=== PATIENT | female | born 1950 | race Caucasian/White ===

== ENCOUNTER → 2017-06-04 14:13 | Outpatient (POV) | payer OTHER, MEDICARE, SELFPAY | PROVIDERS: Family Provider Family Medicine; PCP Family Medicine; Visit Provider Specialist | DX: G56.03 Carpal tunnel syndrome, bilateral upper limbs (principal) | CPT/HCPCS: 95886; 95909 ==

== ENCOUNTER → 2018-08-28 12:27 | Outpatient (CLI) | payer OTHER, MEDICARE, SELFPAY ==
--- NOTE | 2018-08-28 12:36 | XR_ITS ---
XR hand RT min 3V HISTORY: ITS.REASON: bilateral hand pain ORDERING PHYSICIAN: Amalia Jensen MD PATIENT AGE: 68 years COMPARISON: None FINDINGS: No obvious fracture or dislocation. The joint spaces are well-preserved. A faint periarticular lucency is present along the distal aspect of the middle phalanx of the ring finger both radial and ulnar aspect. This is a question clinical significance. Small periarticular erosions or cyst is a consideration. Otherwise negative. IMPRESSION: 1. Possible small periarticular erosion at the DIP joint of the fourth finger versus a small subchondral cyst. Please correlate with clinical findings regarding patient's area of pain and tenderness 2. Otherwise negative
--- NOTE | 2018-08-28 12:36 | XR_ITS ---
XR hand LT min 3V HISTORY: ITS.REASON: bilateral hand pain ORDERING PHYSICIAN: Amalia Jensen MD PATIENT AGE: 68 years COMPARISON: None FINDINGS: There are mild osteoarthritic changes of the first metacarpal carpal joint. A small cyst involves the capitate and 4 mm. A sclerotic focus involves the proximal to mid shaft of the proximal phalanx of the third finger well-circumscribed and could be due to bone island. Otherwise negative. IMPRESSION: 1. 14 mm intramedullary sclerotic lesion of the proximal phalanx of the third digit possibly due to bone island. 2. Mild osteoarthritic changes of the wrist
== END ==
PROVIDERS: PCP Family Medicine; Visit Provider Orthopaedic Surgery
DX: M79.642 Pain in left hand (principal); M79.641 Pain in right hand
CPT/HCPCS: 73130

== ENCOUNTER 2018-08-28 15:23 | Outpatient (RCR) | payer OTHER, MEDICARE, SELFPAY | END 2018-08-28 15:30 | disposition home or self-care (01) | LOC: OT 15:23 | PROVIDERS: Visit Provider Orthopaedic Surgery | DX: M79.642 Pain in left hand (principal) | CPT/HCPCS: 97763 ==

== ENCOUNTER → 2019-04-08 10:07 | Outpatient (POV) | payer OTHER, MEDICARE, SELFPAY | PROVIDERS: Visit Provider Dermatology | DX: Z00.00 Encounter for general adult medical examination without abnormal findings (principal) ==

== ENCOUNTER → 2019-11-07 07:30 | Outpatient (CLI) | payer MEDICARE, BC, SELFPAY | PROVIDERS: Visit Provider Ophthalmology | DX: Z01.818 Encounter for other preprocedural examination (principal); Z11.59 Encounter for screening for other viral diseases | CPT/HCPCS: U0004 ==

== ENCOUNTER → 2019-11-10 16:27 | Outpatient (CLI) | payer MEDICARE, BC, SELFPAY ==
[2019-11-10 16:33] LABS: Adenovirus,PCR Not Detected (NotDetected); Bordetella Pertussis Not Detected (NotDetected); Chlamydophila Pneumoniae, PCR Not Detected (NotDetected); Coronavirus 19, PCR Not Detected (NotDetected); Coronavirus 229E Not Detected (NotDetected); Coronavirus NL63 Not Detected (NotDetected); Coronavirus OC43 Not Detected (NotDetected); Coronovirus HKU1,PCR Not Detected (NotDetected); Human Metapneumovirus Not Detected (NotDetected); Influenza A, PCR Not Detected (NotDetected); Influenza AH1, 2009 Not Detected (NotDetected); Influenza AH1, PCR Not Detected (NotDetected); Influenza AH3,PCR Not Detected (NotDetected); Influenza B, PCR Not Detected (NotDetected); Mycoplasma Pneumoniae, PCR Not Detected (NotDected); Parainfluenza 1, PCR Not Detected (NotDetected); Parainfluenza 2, PCR Not Detected (NotDetected); Parainfluenza 3, PCR Not Detected (NotDetected); Parainfluenza 4, PCR Not Detected (NotDetected); Respiratory Syncytial Virus Not Detected (NotDetected); Rhinovirus/Enterovirus Not Detected (NotDetected)
== END ==
PROVIDERS: Visit Provider Ophthalmology
DX: Z01.818 Encounter for other preprocedural examination (principal); Z11.59 Encounter for screening for other viral diseases
CPT/HCPCS: 87581; 87633; 87798

== ENCOUNTER → 2020-06-02 13:16 | Outpatient (CLI) | payer MEDICARE, SELFPAY ==
--- NOTE | 2020-06-02 13:30 | CT_ITS ---
PROCEDURE: CT LUNG SCREENING CLINICAL INDICATION: H/O NICOTINE DEPENDENCE Current smoker 50 pack year smoking history COMPARISON: No exams were available for comparison TECHNIQUE: The exam was performed on a GE Light Speed [address] scanner using 2.90 mGy CTDI. A low dose helical CT CHEST was performed on a multi-detector scanner. All CT scans at the facility use one or more dose reduction, viz: automated exposure control, ma/kV adjustment per patient size (including targeted exams where dose is matched to indication, i.e. head), or iterative reconstruction technique. The LDCT was performed in a facility that meets the criteria for the screening program. Data regarding this exam was submitted to ACR which is an approved registry. The order for this exam indicates that it came as a result of a lung cancer screening counseling shard decision-making visit that included all the elements required of such a visit including smoking cessation. The radiologist interpreting this exam meets the CMS criteria for the LDCT lung cancer screening program. The exam is reported using the Lung-RADS classification scale and reported to the ACR registry. NOTE: This study was performed for the specific purposes of lung cancer screening and is not an alternative to diagnostic chest CT. RADIATION DOSE: CTDI vol(CT dose Index-volume) = 2.90mG DLP (Dose Length Product) = 94.82 mGcm FINDINGS: COPD with centrilobular emphysema with scattered areas of scarring and evidence of old granulomatous disease. There is mild diffuse bronchial thickening. There are numerous small bilateral irregular pulmonary nodules. These are present in both right upper, right lower, left upper, and left lower lobes as well as the right middle lobe. These are 6 mm or less some with irregular margins. Differential diagnosis would include metastatic disease versus inflammatory/infectious nodules. OTHER FINDINGS: Scattered small mediastinal nodes. Coronary artery calcifications. IMPRESSION: Lung-RADS Category 4A Suspicious There are numerous small noncalcified pulmonary nodules which are somewhat irregular in nature as described above. These could be neoplastic such as metastasis or due to inflammatory/infectious nodules. Does the patient have a known primary cancer?. Search for primary carcinoma may be of further value. If no primary is discovered and if there are no signs or symptoms of infection or inflammation then, would recommend a [address] chest follow-up without and with contrast. Follow-up: See above Dictated by: Khurram Marcelino MD 06/06/2020 18:41 Khurram Marcelino MD in [facility] 06/06/2020 18:42
== END ==
PROVIDERS: PCP Family Medicine; Visit Provider Family Medicine
DX: Z87.891 Personal history of nicotine dependence (principal); Z12.2 Encounter for screening for malignant neoplasm of respiratory organs
CPT/HCPCS: 71271

== ENCOUNTER → 2020-08-31 13:00 | Outpatient (CLI) | payer MEDICARE, SELFPAY ==
[2020-08-31 13:55] LABS: Blood Urea Nitrogen 23 mg/dl (7-17); Estimated Glomerular Filt Rate 99 ml/min (>60); GFR (African American) 120 ML/MIN (>60)
== END ==
PROVIDERS: Visit Provider Family Medicine
DX: R91.8 Other nonspecific abnormal finding of lung field (principal)
CPT/HCPCS: 36415; 82565; 84520

== ENCOUNTER → 2020-09-03 12:55 | Outpatient (CLI) | payer MEDICARE, SELFPAY ==
--- NOTE | 2020-09-03 13:01 | CT_ITS ---
PROCEDURE: CT CHEST W CON CLINCAL INDICATION: LUNG NODULES Follow up COMPARISON: CT CT LUNG SCREENING from 06/02/2020 TECHNIQUE: IV Contrast: 75ml Isovue 370 Axial images obtained with sagittal and coronal reformats. All CT scans at the facility use one or more dose reduction, viz: automated exposure control, ma/kV adjustment per patient size (including targeted exams where dose is matched to indication, i.e. head), or iterative reconstruction technique. FINDINGS: HEART AND MEDIASTINAL STRUCTURES: No mediastinal or hilar mass or adenopathy. LUNGS AND PLEURAL SPACES: COPD changes. Numerous small irregular pulmonary nodules are once again noted. These do not appear significantly changed. No new nodules are identified. No effusions or infiltrates. BONY STRUCTURES: No acute bony abnormalities apparent. UPPER ABDOMEN: Unremarkable. ADDITIONAL FINDINGS: No other significant abnormalities. IMPRESSION: Overall stable CT appearance of the chest. No change in the scattered small pulmonary nodules. Continued follow-up suggested in 6 months. COPD. Dictated by: Khurram Marcelino MD 09/04/2020 08:26 Khurram Marcelino MD in [facility] 09/04/2020 08:26
== END ==
PROVIDERS: PCP Family Medicine; Visit Provider Family Medicine
DX: R91.8 Other nonspecific abnormal finding of lung field (principal)
CPT/HCPCS: 71260; Q9967

== ENCOUNTER → 2021-02-15 15:18 | Outpatient (CLI) | payer MEDICARE, SELFPAY ==
--- NOTE | 2021-02-15 15:21 | MM_ITS ---
PROCEDURE: MM DIG SCREENING MAMM BI W/CAD Digital Breast Tomosynthesis Included CLINICAL INDICATION: SCREENING There is no personal or family history of breast cancer. There has been a previous biopsy left breast for benign disease. COMPARISON: No exams were available for comparison TECHNIQUE: Standard CC and MLO images and 3D Tomosynthesis was obtained. R2 CAD reviewed. FINDINGS: Moderate diffuse fibroglandular densities are seen in both breast. There are multiple benign-appearing microcalcifications in each breast. There are 2 mole markers left breast. There is a biopsy clip left breast. There is faint arterial calcification in each breast. There is no suspicious lesion and no suspicious microcalcifications. IMPRESSION: Moderate diffuse breast density with no suspicious lesions seen BI-RAD Category: 2 Benign Finding(s) FOLLOW-UP: 1YR 1 Year Follow-up (A letter has been sent to the patient regarding results of the study.) Dictated by: Dr. Monico Tejada MD 02/22/2021 13:30 Dr. Monico Tejada MD in [facility] 02/22/2021 13:30
== END ==
PROVIDERS: PCP Family Medicine; Visit Provider Family Medicine
DX: Z12.31 Encounter for screening mammogram for malignant neoplasm of breast (principal)
CPT/HCPCS: 77063; 77067

== ENCOUNTER 2021-02-24 21:33 | Inpatient (IN) | payer MEDICARE, SELFPAY ==
[2021-02-24 21:35] VITALS: BP 126/36; PULSE 105; RESP 24; TEMP 36.8; O2SAT 95; BMI 22.3
--- NOTE | 2021-02-24 21:39 | ECG_ITS ---
APPROVED REPORT Exam: Resting ECG HR:105 bpm ECG Measurements Heart Rate 105 AXES NH 190 P 78 QRSd 130 QRS -78 QT 364 T 60 QTc 481 Conclusion Sinus tachycardia Right atrial enlargement Left axis deviation Nonspecific intraventricular block Abnormal ECG Electronically signed by : Juan Duggan MD 02/25/2021 14:25:47
[2021-02-24 21:52] LABS: ABG HCO3 11.5 mmhg (22.0-26.0); ABG Oxygen Saturation 95 % (90-100); ABG PCO2 27.4 mmhg (35.0-45.0); ABG PH 7.24 mmol/L (7.35-7.45); ABG PO2 89.8 mmhg (80-100); ABG TCO2 12.3 mmhg (23-27)
--- NOTE | 2021-02-24 21:52 | XR_ITS ---
PROCEDURE INFORMATION: Exam: XR Chest Exam date and time: 02/24/2021 9:52 PM Age: 70 years old Clinical indication: Cough and other: AMS TECHNIQUE: Imaging protocol: XR of the chest. Views: 1 view. COMPARISON: CT CHEST W CON 09/03/2020 1:19 PM FINDINGS: Airway: Patent Lungs: There are multiple punctate pulmonary parenchymal calcifications, consistent with remote granulomatous organism exposure. COPD/emphysema is appreciated. No acute interstitial or airspace disease. Pleural spaces: Unremarkable. No pleural effusion. No pneumothorax. Heart/Mediastinum: Unremarkable. No cardiomegaly. Bones/joints: Chronic osseous remodeling in the left acromioclavicular joint, likely related to sequela of prior injury. No acute skeletal abnormality or aggressive osseous lesion. IMPRESSION: Negative for acute thoracic pathology.
[2021-02-24 21:53] LABS: Allen's Test Acceptable; Oxygen 21 %; Source Right Radial
[2021-02-24 22:00] VITALS: BP 96/46; PULSE 110; RESP 24; O2SAT 95
[2021-02-24 22:01] LABS: Basophils # 0.1 K/mm3 (0-0.2); Basophils % 0.7 % (0.1-2.0); Eosinophils % 0.1 % (0.1-12.0); Hematocrit 48.3 % (37.0-47.0); Hemoglobin 14.7 g/dL (12.2-16.2); Lymphocytes # 2.4 K/mm3 (0.7-4.5); Lymphocytes % 15.5 % (10-50); Mean Corpuscular HGB Conc 30.4 g/dL (31.8-35.4); Mean Corpuscular Hemoglobin 32.2 pg (27.0-31.2); Mean Corpuscular Volume 105.8 fl (81-99); Mean Platelet Volume 10.8 fl (7.4-10.4); Monocytes # 0.6 K/mm3 (0.1-1.0); Monocytes % 3.5 % (1.7-9.3); Neutrophils # 12.7 K/mm3 (1.8-7.8); Neutrophils % 80.3 % (37.0-80.0); Platelet Count 296 K/mm3 (142-424); Red Blood Count 4.57 M/mm3 (4.20-5.40); Red Cell Distribution Width 13.4 % (11.5-17.5); White Blood Count 15.8 K/mm3 (4.8-10.8)
[2021-02-24 22:02] LABS: Microscopic, Urine URINE MICROSCOPIC (MICROSCOPIC)
[2021-02-24 22:04] LABS: Appearance,Urine CLEAR (Clear); Blood, Urine Negative (Negative); Color,Urine YELLOW (Yellow); Glucose,Urine (UA) 3+ (Negative); Ketones,Urine 2+ (Negative); Leukocyte Esterase,Urine Negative (Negative); Nitrate,Urine Negative (Negative); Protein,Urine Negative (Negative); Specific Gravity, Urine 1.015 (1.005-1.030); Urobilinogen,Urine 0.2 EU/dl (0.2)
[2021-02-24 22:04] LABS: MANUAL DIFFERENTIAL MANUAL DIFFERENTIAL (MANUAL DIFF)
[2021-02-24 22:06] LABS: Alanine Aminotransferase 42 U/L (12-78); Albumin Level 4.3 g/dl (3.5-5.0); Alkaline Phosphatase 116 U/L (38-126); Amylase 54 U/L (30-110); Anion Gap 35.6 mEq/L (5-15); Aspartate Amino Transferase 41 U/L (14-36); Bilirubin,Direct 0.7 mg/dl (0.0-0.4); Bilirubin,Indirect 0.1 mg/dL (0.0-0.9); Bilirubin,Total 0.8 mg/dl (0.2-1.3); Blood Urea Nitrogen 34 mg/dl (7-17); Calcium 9.8 mg/dl (8.4-10.2); Carbon Dioxide 13 mmol/L (22.0-30.0); Chloride 94 mmol/L (98-107); Creatinine Clearance Estimated 41 mL/min (50-200); Estimated Glomerular Filt Rate 45 ml/min (>60); GFR (African American) 54 ML/MIN (>60); Lipase 42 U/L (23-300); Potassium 5.6 mmoL/L (3.5-5.1); Sodium 137 mmol/L (136-145); Total Protein,Serum 6.8 g/dl (6.3-8.2)
[2021-02-24 22:09] LABS: Lactic Acid 4.2 mmol/L (0.7-2.1)
[2021-02-24 22:10] LABS: Glucose 614 mg/dl (74-100)
--- NOTE | 2021-02-24 22:10 | PC.NURSE ---
BG of 614 reported from lab at this time. MD Bhavin notified of result at this time.
--- NOTE | 2021-02-24 22:10 | HMH.EDAMS ---
ED Disposition Clinical Impression: DKA (diabetic ketoacidosis) Qualifiers: Diabetes mellitus type: type 1 Diabetes mellitus complication detail: without coma Qualified Code(s): E10.10 - Type 1 diabetes mellitus with ketoacidosis without coma Disposition: Admitted As Inpatient Condition on Discharge: Serious Instructions: DI for Altered Mental Status Referrals: Efren Gee MD [Primary Care Provider] - - Critical Care Critical Care Time: No Attestation: On 02/24/21, the high probability of a clinically significant, sudden or life threatening deterioration of the following system(s) required my full and direct attention, intervention and personal management. The time I documented below is in addition to time spent performing reported procedures but includes the following listed in this critical care notation. Medical Decision Making - Medical Records Medical records reviewed: Yes: I reviewed the patient's medical records. - Ander Inquiry Pt receiving controlled substance: No Vital Signs: 02/24/21 21:35 Temperature 98.3 F Temperature Source Oral Pulse Rate [Right Radial] 105 H Respiratory Rate 24 Blood Pressure [Right Arm] 126/36 L Blood Pressure Mean [Right Arm] 66 Blood Pressure Source [Right Arm] Automatic Cuff Blood Pressure Position [Right Arm] Supine 02 Sat by Pulse Oximetry 95 Oxygen Delivery Method Room Air - Lab Data Lab results reviewed: Yes: I reviewed the patient's lab results. Lab Results 02/24/21 21:39: WBC 15.8 H, RBC 4.57, Hgb 14.7, Hct 48.3 H, MCV 105.8 H, MCH 32.2 H, MCHC 30.4 L, RDW 13.4, Plt Count 296, MPV 10.8 H, Neut % (Auto) 80.3 H, Lymph % (Auto) 15.5, [place] % (Auto) 3.5, Eos % (Auto) 0.1, Baso % (Auto) 0.7, Neut # (Auto) 12.7 H, Lymph # (Auto) 2.4, [place] # (Auto) 0.6, Eos # (Auto) 0.0, Baso # (Auto) 0.1, Total Counted 100, Neutrophils % (Manual) 74, Band Neutrophils % 2.0, Lymphocytes % (Manual) 18, Monocytes % (Manual) 6, Platelet Estimate Normal, RBC Morphology Not Reportable, Macrocytosis 2+ 02/24/21 21:39: Sodium 137, Potassium 5.6 H, Chloride 94 L, Carbon Dioxide 13 L, Anion Gap 35.6 H, BUN 34 H, Creatinine 1.20 H, Estimated Creat Clear 41, Estimated GFR 45 L, Est GFR ( Amer) 54 L, Glucose 614 H*, Calcium 9.8, Total Bilirubin 0.8, Direct Bilirubin 0.7 H, Conjugated Bilirubin 0.0, Indirect Bilirubin 0.1, Unconjugated Bilirubin 0.0, AST 41 H, ALT 42, Alkaline Phosphatase 116, Troponin I < 0.01, Total Protein 6.8, Albumin 4.3, Amylase 54 02/24/21 21:39: Lactate 4.2 H 02/24/21 21:39: Lipase 42 02/24/21 21:49: Specimen Source Right radial, O2 % 21, ABG pH 7.24 L*, ABG pCO2 27.4 L, ABG pO2 89.8, ABG HCO3 11.5 L, ABG Total CO2 12.3 L, ABG O2 Saturation 95, ABG Base Excess -16.0 L, Khurram Test Acceptable 02/24/21 21:51: Urine Color Yellow, Urine Appearance Clear, Urine pH 6.0, Ur Specific [place] 1.015, Urine Protein Negative, Urine Glucose (UA) 3+, Urine Ketones 2+, Urine Blood Negative, Urine Nitrate Negative, Urine Bilirubin Negative, Urine Urobilinogen 0.2, Ur Leukocyte Esterase Negative, Urine WBC Occasional, Ur Squamous Epith Cells Occasional 02/24/21 21:51: Urine Opiates Screen Negative, Urine Methadone Screen Negative, Ur Barbituates Screen Negative, Ur Phencyclidine Scrn Negative, Ur Amphetamines Screen Negative, U Benzodiazepines Scrn Negative, Urine Cocaine Screen Negative, U Marijuana (THC) Screen Negative Result diagrams: 02/24/21 21:39 02/24/21 21:39 Orders (Tests/Meds): ED MEDICATIONS Generic Name Dose Route Start Last Admin Trade Name Freq PRN Reason Stop Dose Admin Sodium Chloride 1,000 mls @ 999 mls/hr 02/24/21 22:00 Sod Chlor 0.9% 1000ml Bag IV 02/24/21 23:00 .Q1H1M ROMINA Insulin Human Regular 100 unit 101 mls @ 8.08 mls/hr 02/24/21 22:15 / Sodium Chloride IV 03/26/21 22:14 .[id number] [facility] Protocol 8 UNIT/HR Discontinued Medications Generic Name Dose Route Start Last Admin Trade Name Freq PRN Reason Stop Dose Admin Insulin
[2021-02-24 22:12] LABS: Bilirubin,Urine Negative (Negative); Squamous Epithelial Cell,Urine Occasional #/hpf (0-5); WBC,Urine Occasional #/hpf (0-3)
[2021-02-24 22:14] LABS: Coronavirus 19, PCR Not Detected (NotDetected); Influenza A, PCR Not Detected (NotDetected); Influenza B, PCR Not Detected (NotDetected)
[2021-02-24 22:15] LABS: Barbiturates Screen,Urine Negative ng/ml (<200)
[2021-02-24 22:16] LABS: Amphetamine/Metha Screen,Urine Negative ng/ml (<1000); Benzodiazepines Screen,Urine Negative ng/ml (<200)
[2021-02-24 22:17] LABS: Methadone Screen,Urine Negative ng/ml (<300)
[2021-02-24 22:18] LABS: Cannabinoid Screen,Urine Negative ng/ml (<50); Cocaine Screen,Urine Negative ng/ml (<300)
[2021-02-24 22:19] LABS: Opiate Screen,Urine Negative ng/ml (<300); Phencyclidine Screen,Urine Negative ng/ml (<25)
[2021-02-24 22:24] LABS: Lymphocytes % 18 % (10-50); Monocytes % 6 % (2-9); Neutrophils % 74 % (42-76); Total Cells Counted 100
[2021-02-24 22:25] LABS: Macrocytosis 2+; Platelet Estimate Normal; Troponin I < 0.01 ng/ml (0.00-0.034)
[2021-02-24 22:31] LABS: Acetone, Serum (Rapid) Moderate (None Detect)
[2021-02-24 22:33] LABS: T4 (Thyroxine) 13.1 ug/dl (5.53-11.0)
[2021-02-24 22:47] LABS: Thyroid Stimulating Hormone 1.89 uIU/mL (0.465-4.68)
[2021-02-24 23:00] VITALS: BP 108/44; PULSE 113; RESP 23; O2SAT 96
--- NOTE | 2021-02-24 23:32 | PC.NURSE ---
FSBG 465
--- NOTE | 2021-02-24 23:40 | PC.NURSE ---
PT ARRIVED TO FLOOR VIA STRETCHER FROM ED W/STAFF @ [phone]
[2021-02-24 23:44] VITALS: BP 114/46; PULSE 111; RESP 21; TEMP 36.9; O2SAT 95
[2021-02-24 23:56] VITALS: BP 125/48; PULSE 118; RESP 17; TEMP 36.9; O2SAT 99; BMI 22.4
[2021-02-25] VITALS (12 sets, daily range): BP systolic 84–133; BP diastolic 34–66; PULSE 64–120; RESP 18–22; TEMP 36.4–37.7; O2SAT 90–95; BMI 22.5; BMI 22.4
[2021-02-25 00:52] LABS: POC Glucose,Bedside 382 (70-110)
[2021-02-25 01:40] LABS: Blood Urea Nitrogen 33 mg/dl (7-17); Calcium 8.7 mg/dl (8.4-10.2); Carbon Dioxide 16 mmol/L (22.0-30.0); Chloride 102 mmol/L (98-107); Creatinine Clearance Estimated 45 mL/min (50-200); Estimated Glomerular Filt Rate 55 ml/min (>60); GFR (African American) 67 ML/MIN (>60); Glucose 352 mg/dl (74-100); Sodium 139 mmol/L (136-145)
[2021-02-25 01:42] LABS: Troponin I < 0.01 ng/ml (0.00-0.034)
[2021-02-25 01:57] LABS: Reflex Lactic Add Lactic Reflex
[2021-02-25 02:47] LABS: Lactic Acid Follow Up (RFLX 1) 2.3 mmol/L (0.7-2.1)
[2021-02-25 04:38] LABS: Reflex Lactic (2 hrs) Add Lactic Reflex
[2021-02-25 05:14] LABS: Basophils # 0.1 K/mm3 (0-0.2); Basophils % 0.3 % (0.1-2.0); Eosinophils % 0.1 % (0.1-12.0); Lymphocytes # 2.2 K/mm3 (0.7-4.5)
[2021-02-25 05:19] LABS: Acetone, Serum (Rapid) Small (None Detect); Hematocrit 37.6 % (37.0-47.0); Lymphocytes % 10.5 % (10-50); Mean Corpuscular HGB Conc 31.8 g/dL (31.8-35.4); Mean Corpuscular Hemoglobin 31.8 pg (27.0-31.2); Mean Platelet Volume 9.3 fl (7.4-10.4); Monocytes # 1.4 K/mm3 (0.1-1.0); Monocytes % 6.9 % (1.7-9.3); Neutrophils # 16.8 K/mm3 (1.8-7.8); Neutrophils % 82.2 % (37.0-80.0); Platelet Count 207 K/mm3 (142-424); Red Blood Count 3.76 M/mm3 (4.20-5.40); Red Cell Distribution Width 13.9 % (11.5-17.5); White Blood Count 20.5 K/mm3 (4.8-10.8)
[2021-02-25 05:23] LABS: Blood Urea Nitrogen 31 mg/dl (7-17); Calcium 8.4 mg/dl (8.4-10.2); Carbon Dioxide 21 mmol/L (22.0-30.0); Chloride 108 mmol/L (98-107); Creatinine Clearance Estimated 45 mL/min (50-200); Estimated Glomerular Filt Rate 71 ml/min (>60); GFR (African American) 86 ML/MIN (>60); Glucose 121 mg/dl (74-100); Magnesium 1.5 mg/dl (1.6-2.3); Sodium 138 mmol/L (136-145)
[2021-02-25 05:35] LABS: Troponin I 0.04 ng/ml (0.00-0.034)
[2021-02-25 05:37] LABS: Lactic Acid Follow up (RFLX 2) 0.9 mmol/L (0.7-2.1)
--- NOTE | 2021-02-25 06:06 | PC.NURSE ---
Patient A&O x 4, continues with low BP 88/34 map 51, fluids of NS 200mL/hr, D5NS 125mL/hr, WBC increased to 20.5, Temp has decreased from 100.4 to 98.7 with Tylenol provider notified no new orders at this time. No s/s of acute distress noted, call light within reach, bed at lowest level for safety; will continue to monitor.
[2021-02-25 06:31] LABS: POC Glucose,Bedside 311 (70-110)
[2021-02-25 06:31] LABS: POC Glucose,Bedside 98 (70-110)
[2021-02-25 06:31] LABS: POC Glucose,Bedside 236 (70-110)
[2021-02-25 06:31] LABS: POC Glucose,Bedside 155 (70-110)
[2021-02-25 06:31] LABS: POC Glucose,Bedside 129 (70-110)
[2021-02-25 06:31] LABS: POC Glucose,Bedside 176 (70-110)
[2021-02-25 06:31] LABS: POC Glucose,Bedside 230 (70-110)
[2021-02-25 06:31] LABS: POC Glucose,Bedside 111 (70-110)
[2021-02-25 07:07] LABS: POC Glucose,Bedside 110 (70-110)
--- NOTE | 2021-02-25 07:54 | HMH.PHAVTE ---
[facility] Pharmacy VTE Monitoring - Patient Demographics Admission date: 02/24/21 Report Date: 02/25/21 Time: 07:54 Allergies/Adverse Reactions: Patient Allergies codeine [CODEINE] Allergy (Unknown, Verified 08/28/18 14:01) ITCHING Height: 1.55 m Weight: 54.1 kg Patient Problems: Current Active Problems DKA (diabetic ketoacidosis) (Acute) - VTE Risk Labs: VTE Related Lab Results Hgb 12.0 g/dL (12.2-16.2) L D 02/25/21 04:12 Hct 37.6 % (37.0-47.0) 02/25/21 04:12 Plt Count 207 K/mm3 (142-424) D 02/25/21 04:12 BUN 31 mg/dl (7-17) H 02/25/21 04:12 Creatinine 0.80 mg/dl (0.52-1.04) 02/25/21 04:12 Estimated Creat Clear 45 mL/min (50-200) 02/25/21 04:12 - Prophylaxis VTE Prophylaxis Ordered?: Yes Types of VTE Prophylaxis: TEDS Knee High Location of Applied Device: Bilateral Lower Extremeties
--- NOTE | 2021-02-25 08:17 | HMH.HP ---
*Admission Date: 02/24/21 <Meaghan Sanches 02/25/21 08:27> *Chief complaint: AMS, DKA <Meaghan Sanches 02/25/21 08:27> *History of present illness: Ms. Armenta is a 70-year-old female with a history of type 1 diabetes, hypertension, hyperlipidemia, hypothyroidism, and coronary artery disease. She was on vacation with her daughter in [place] and felt well the whole week. She states around 4:30 AM yesterday she began feeling weak and achy. She said her shoulder started hurting and she became lethargic. She states she got on the plane to fly home and became very weak and nauseated. Her daughter brought her straight from the airport to the hospital because she was talking out of her head. They had been unable to check her blood sugar during the flight. She was evaluated in the ER and found to be in DKA. She was admitted for further evaluation and treatment. <Meaghan Sanches 02/25/21 08:27> [facility] History I have reviewed the patient's past medical history: Yes <Meaghan Sanches 02/25/21 08:27> Medical History: Reports:: Coronary Artery Disease, Diabetes Mellitus Type 1, Hyperlipidemia, Hypertension, Lung Disease Denies:: Diabetes Mellitus Type 2, Internal Pacemaker, Seizures <Meaghan Sanches 02/25/21 08:27> *Have you ever received a pneumonia vaccine?: No <Meaghan Sanches 02/25/21 08:27> *Have you received a flu vaccine this season?: Yes <Meaghan Sanches 02/25/21 08:27> Other Medical History: Reports: Hypothyroidism <Meaghan Sanches 02/25/21 08:27> Laterality Cases: Bilateral: Tonsillectomy <Meaghan Sanches 02/25/21 08:27> Other Surgeries: Yes: Appendectomy, Cholecystectomy, Hysterectomy-Total, Other. No: Pacemaker <Meaghan Sanches 02/25/21 08:27> - *Social History Smoking Status: Current every day smoker <Meaghan Sanches 02/25/21 08:27> Tobacco Type: cigarettes <Meaghan Sanches 02/25/21 08:27> # Packs/Day (cigarettes): 1 <Meaghan Sanches 02/25/21 08:27> Alcohol Intake: never <Meaghan Sanches 02/25/21 08:27> *Occupational Status:: retired <Meaghan Sanches 02/25/21 08:27> *Travel in the last 8 weeks: None <DarianspencerMeaghan 02/25/21 08:27> Family Hx:: No significant family history <DarianspencerMeaghan 02/25/21 08:27> Review of Systems - Constitutional Reports malaise, Reports weakness, Denies chills, Denies fever(s) <DarianspencerMeaghan 02/25/21 08:27> - Eyes Denies blurry vision, Denies double vision <DarianspencerMeaghan 02/25/21 08:27> - ENT Reports nasal congestion, Denies sore throat <DarianspencerMeaghan 02/25/21 08:27> - *Cardiovascular Denies chest pain, Denies shortness of breath <DarianspencerMeaghan 02/25/21 08:27> - *Respiratory Reports chest congestion, Reports cough, Denies shortness of breath <DarianspencerMeaghan 02/25/21 08:27> - *Gastrointestinal Reports nausea, Denies abdominal pain, Denies loose stools, Denies vomiting <DarianspencerMeaghan 02/25/21 08:27> - *Genitourinary Denies difficulty urinating, Denies painful urination <DarianspencerMeaghan 02/25/21 08:27> - *Musculoskeletal Reports body aches <DarianspencerMeaghan 02/25/21 08:27> - *Neurologic Reports dizziness, Reports weakness, Denies localized weakness, Denies headache(s), Denies seizure-like activity <DarianspencerMeaghan 02/25/21 08:27> Meds Home Medications Medication Instructions Recorded Confirmed Type insulin glargine 100 unit/mL 1 unit SUB-Q ONCE 05/18/17 02/24/21 History subcutaneous solution insulin lispro 100 unit/mL 5 unit SUB-Q QAM 05/18/17 02/24/21 History subcutaneous solution levothyroxine 150 mcg capsule 150 mcg PO DAILY 05/18/17 02/24/21 History pantoprazole 40 mg tablet,delayed 40 mg PO QAM 05/18/17 02/24/21 History release Atorvastatin Calcium [Atorvastatin 40 mg PO DAILY 11/05/18 02/24/21 History 40mg Tab] Metoprolol Succinate 25 mg PO BID 11/05/18 02/24/21 History <Efren Gee - 02/25/21 09:04> Allergies Allergy/AdvReac Type Severity Reaction Status Date / Time codeine [CODEINE] Allergy Unknown
--- NOTE | 2021-02-25 09:46 | HMH.PHAINT ---
MEDICATION RECONCILIATION COMPLETED ON PATIENT USING EXTERNAL FILL HISTORY FROM PHARMACY AND LIST FROM [facility] OFFICE. -PAT LOPEZD
[2021-02-25 09:49] LABS: POC Glucose,Bedside 169 (70-110)
[2021-02-25 10:14] LABS: POC Glucose,Bedside 132 (70-110)
[2021-02-25 10:49] LABS: Troponin I 0.05 ng/ml (0.00-0.034)
--- NOTE | 2021-02-25 16:41 | PC.NURSE ---
PT IS RESTING IN BED. PT HAS BEEN VERY DROWSY T/O THE SHIFT. AWAKENS EASILY TO VERBAL STIMULI AND ANSWERS QUESTIONS. EATING AND DRINKING FAIR. BP HAS BEEN LOW T/O THE SHIFT (PCP NOTIFED) LUNG SOUNDS CLEAR. ABDOMEN SOFT/NON TENDER WITH ACTIVE BOWEL SOUNDS. WILL CONTINUE TO MONITOR.
[2021-02-25 19:56] LABS: POC Glucose,Bedside 188 (70-110)
[2021-02-25 19:56] LABS: POC Glucose,Bedside 107 (70-110)
[2021-02-25 20:42] LABS: POC Glucose,Bedside 226 (70-110)
[2021-02-26] VITALS: BP 132/65; PULSE 83; RESP 16; TEMP 36.7; O2SAT 94
[2021-02-26 04:00] VITALS: BP 130/64; PULSE 68; RESP 17; TEMP 36.7; O2SAT 96
[2021-02-26 04:54] VITALS: BMI 22.4
--- NOTE | 2021-02-26 05:38 | PC.NURSE ---
pt VSS, pt rested well overnight, pt complained that hands so swollen and starting to feel am getting too much fluid so at 0330 decreased pt's IVF from 125mL/hr to 50mL/hr, pt with adequate UOP, no pain noted, no concerns at this time
[2021-02-26 06:50] LABS: Basophils # 0.1 K/mm3 (0-0.2); Basophils % 0.6 % (0.1-2.0); Eosinophils # 0.5 K/mm3 (0.0-0.4); Eosinophils % 3.8 % (0.1-12.0); Hematocrit 42.3 % (37.0-47.0); Hemoglobin 13.4 g/dL (12.2-16.2); Lymphocytes # 3.2 K/mm3 (0.7-4.5); Lymphocytes % 25.4 % (10-50); Mean Corpuscular HGB Conc 31.6 g/dL (31.8-35.4); Mean Corpuscular Hemoglobin 31.8 pg (27.0-31.2); Mean Corpuscular Volume 100.8 fl (81-99); Mean Platelet Volume 8.8 fl (7.4-10.4); Monocytes # 0.6 K/mm3 (0.1-1.0); Neutrophils # 8.3 K/mm3 (1.8-7.8); Neutrophils % 65.1 % (37.0-80.0); Platelet Count 176 K/mm3 (142-424); White Blood Count 12.7 K/mm3 (4.8-10.8)
[2021-02-26 06:55] LABS: Chloride 110 mmol/L (98-107); Potassium 4.1 mmoL/L (3.5-5.1); Sodium 139 mmol/L (136-145)
[2021-02-26 06:58] LABS: Anion Gap 11.1 mEq/L (5-15); Blood Urea Nitrogen 17 mg/dl (7-17); Carbon Dioxide 22 mmol/L (22.0-30.0); Creatinine Clearance Estimated 45 mL/min (50-200); Estimated Glomerular Filt Rate 122 ml/min (>60); GFR (African American) 148 ML/MIN (>60)
[2021-02-26 06:59] LABS: Calcium 8.5 mg/dl (8.4-10.2); Glucose 158 mg/dl (74-100)
[2021-02-26 07:09] LABS: Hemoglobin A1C 9.6 % (4.0-6.0)
[2021-02-26 08:00] VITALS: BP 147/62; PULSE 88; RESP 17; TEMP 36.8; O2SAT 92
--- NOTE | 2021-02-26 09:40 | HMH.ACPN2 ---
Internal Medicine - PN: Subj *Date: 02/26/21 *Time: 09:40 Interval history: Patient feels much better today, anxious to go home. Exam Vital signs and Labs for Last 24 Hours: Temp Pulse Resp BP Pulse Ox 98.3 F 88 17 147/62 H 92 L 02/26/21 08:00 02/26/21 08:00 02/26/21 08:00 02/26/21 08:00 02/26/21 08:00 Laboratory Results - last 24 hr 02/25/21 08:23: POC Glucose 169 H 02/25/21 10:07: POC Glucose 132 H 02/25/21 10:10: Troponin I 0.05 H 02/25/21 12:16: POC Glucose 107 02/25/21 16:02: POC Glucose 188 H 02/25/21 20:19: POC Glucose 226 H 02/26/21 06:20: WBC 12.7 H D, RBC 4.20, Hgb 13.4, Hct 42.3, MCV 100.8 H, MCH 31.8 H, MCHC 31.6 L, RDW 14.0, Plt Count 176, MPV 8.8, Neut % (Auto) 65.1, Lymph % (Auto) 25.4, [place] % (Auto) 5.0, Eos % (Auto) 3.8, Baso % (Auto) 0.6, Neut # (Auto) 8.3 H, Lymph # (Auto) 3.2, [place] # (Auto) 0.6, Eos # (Auto) 0.5 H, Baso # (Auto) 0.1 02/26/21 06:20: Sodium 139, Potassium 4.1, Chloride 110 H, Carbon Dioxide 22, Anion Gap 11.1, BUN 17 D, Creatinine 0.50 L D, Estimated Creat Clear 45, Estimated GFR 122, Est GFR ( Amer) 148 D, Glucose 158 H, Calcium 8.5 02/26/21 06:20: Hemoglobin A1c 9.6 H Vital Signs - 24 hr 02/25/21 10:00 02/25/21 12:00 02/25/21 14:00 Temperature 99.0 F Pulse Rate 70 Pulse Rate [Right Radial] 86 82 87 Respiratory Rate 20 20 18 Blood Pressure [Right Arm] 87/40 L 100/45 L 104/48 L 02 Sat by Pulse Oximetry 93 L 93 L 93 L 02/25/21 15:43 02/25/21 16:00 02/25/21 20:00 Temperature 98.2 F 97.6 F Pulse Rate 90 Pulse Rate [Right Radial] 90 64 Respiratory Rate 20 19 Blood Pressure [Right Arm] 114/54 L 133/66 02 Sat by Pulse Oximetry 93 L 94 L 02/26/21 00:00 02/26/21 04:00 02/26/21 08:00 Temperature 98.1 F 98.1 F 98.3 F Pulse Rate Pulse Rate [Right Radial] 83 68 88 Respiratory Rate 16 17 17 Blood Pressure [Right Arm] 132/65 130/64 147/62 H 02 Sat by Pulse Oximetry 94 L 96 92 L I & O for Last 24 hours: Intake & Output 02/23/21 02/24/21 02/25/21 02/26/21 23:59 23:59 23:59 23:59 Intake Total 1999 4112 / 6566 3552 / 3552 Output Total 1099 1850 / 1850 Balance 1999 3012 / 4466 1702 / 1702 Weight 118 lb 9.739 oz 119 lb 0.794 oz 119 lb 0.794 oz - Constitutional no acute distress - *Routine HEENT Exam Head: Present: normocephalic Eye: Present: EOMI, PERRL ENT: Present: mucous membranes moist - *Routine Neck Exam Present: supple. Absent: lymphadenopathy - *Routine Respiratory Exam Present: CTA bilaterally - *Routine Cardiovascular Exam Present: RRR - *Routine Abdominal Exam Present: soft, normoactive bowel sounds. Absent: tenderness - *Routine Extremities Exam Absent: cyanosis, clubbing, edema - *Routine Skin Exam Present: warm. Absent: rash - *Routine Neurological Exam Present: alert, oriented X3 Assessment and Plan (1) DKA (diabetic ketoacidosis) Status: Acute Qualifiers: Diabetes mellitus type: type 1 Diabetes mellitus complication detail: without coma Qualified Code(s): E10.10 - Type 1 diabetes mellitus with ketoacidosis without coma Category: Medical Code(s): E11.10 - Type 2 diabetes mellitus with ketoacidosis without coma (2) Leukocytosis Status: Acute Category: Medical Code(s): D72.829 - Elevated white blood cell count, unspecified (3) Elevated troponin Status: Acute Category: Medical Code(s): R77.8 - Other specified abnormalities of plasma proteins (4) Hypertension Status: Chronic Category: Medical Code(s): I10 - Essential (primary) hypertension (5) Hyperlipidemia Status: Chronic Category: Medical Code(s): E78.5 - Hyperlipidemia, unspecified (6) Hypothyroid Status: Chronic Category: Medical Code(s): E03.9 - Hypothyroidism, unspecified (7) Coronary artery disease Status: Chronic Category: Medical Code(s): I25.10 - Atherosclerotic heart disease of [place] coronary artery without angina pectoris (8) Type 1 di
[2021-02-26 11:24] LABS: POC Glucose,Bedside 267 (70-110)
[2021-02-26 11:25] LABS: POC Glucose,Bedside 121 (70-110)
--- NOTE | 2021-03-01 15:31 | HMH.DCSUM ---
General - General Admission date:: 02/24/21 Discharge date: 02/26/21 HPI HPI: Ms. Armenta is a 70-year-old female with a history of type 1 diabetes, hypertension, hyperlipidemia, hypothyroidism, and coronary artery disease. She was on vacation with her daughter in [place] and felt well the whole week. She states around 4:30 AM yesterday she began feeling weak and achy. She said her shoulder started hurting and she became lethargic. She states she got on the plane to fly home and became very weak and nauseated. Her daughter brought her straight from the airport to the hospital because she was talking out of her head. They had been unable to check her blood sugar during the flight. She was evaluated in the ER and found to be in DKA. She was admitted for further evaluation and treatment. Hospital Course Hospital Course: The patient was admitted and started on an insulin drip. Her chest x-ray was normal. Her white blood cell count was elevated and her troponin was also slightly elevated. Her lactic acid was elevated but normalized. Her glucose improved. Her blood pressure remained low. The etiology of her DKA was unclear. She had been using Jardiance which could have been the cause. Her troponin was rechecked and her insulin drip was stopped. By 02/26/2021 she felt much better and was anxious to go home. Her troponin max was 0.05 and her echo was normal. Her white blood cell count improved. She was started on cefdinir for an upper respiratory infection and was stable to be discharged home. She will follow-up in the office in 6 days and her Jardiance will be discontinued. Objective Vital signs: Temp Pulse Resp BP Pulse Ox 98.3 F 88 17 147/62 H 92 L 02/26/21 08:00 02/26/21 08:00 02/26/21 08:00 02/26/21 08:00 02/26/21 08:00 Narrative: Constitutional no acute distress - *Routine HEENT Exam Head: Present: normocephalic Eye: Present: EOMI, PERRL ENT: Present: mucous membranes moist - *Routine Neck Exam Present: supple. Absent: lymphadenopathy - *Routine Respiratory Exam Present: CTA bilaterally - *Routine Cardiovascular Exam Present: RRR - *Routine Abdominal Exam Present: soft, normoactive bowel sounds. Absent: tenderness - *Routine Extremities Exam Absent: cyanosis, clubbing, edema - *Routine Skin Exam Present: warm. Absent: rash - *Routine Neurological Exam Present: alert, oriented X3 Results Labs on day of discharge: Preliminary micro results at discharge 02/24/21 21:39 Blood Culture - Preliminary Blood NO GROWTH AFTER 48 HOURS 02/24/21 21:39 Blood Culture - Preliminary Blood NO GROWTH AFTER 48 HOURS DS: Diagnosis - Discharge Diagnosis (1) DKA (diabetic ketoacidosis) Status: Acute (2) Leukocytosis Status: Acute (3) Elevated troponin Status: Acute (4) Hypertension Status: Chronic (5) Hyperlipidemia Status: Chronic (6) Hypothyroid Status: Chronic (7) Coronary artery disease Status: Chronic (8) Type 1 diabetes Status: Chronic Discharge Plan - Patient Discharge Instructions ACTIVITY: Continue current activity DIET: continue same diet Patient Instructions: High Triglycerides, Type 1 Diabetes, DI for High Blood Pressure, Diabetic Ketoacidosis, DI for Diabetic Ketoacidosis - Follow up Plan Follow up with: Efren Gee MD [Primary Care Provider] - 03/04/21 12:45 pm () Disposition: Home, Self-Care Condition at discharge:: Improved Home Medications: Home Medications Medication Instructions Recorded Confirmed Type insulin glargine 100 unit/mL 14 unit SQ DAILY 05/18/17 02/25/21 History subcutaneous solution insulin lispro 100 unit/mL 0 unit SQ DIRECTED 05/18/17 02/25/21 History subcutaneous solution Atorvastatin Calcium [Lipitor 40mg 40 mg PO HS 11/05/18 02/25/21 History Tab] Albuterol Sulfate [Ventolin HFA 1 - 2 puffs IH Q6HP PRN 02/25/21 02/25/21 History In
== END 2021-02-26 13:56 | disposition home or self-care (01) | DRG 639 ==
LOC: ER 21:39 → 2ND 22:40
PROVIDERS: Admitting Provider Family Medicine; Emergency Provider Emergency Medicine; PCP Family Medicine; Visit Provider Family Medicine
DX: E10.10 Type 1 diabetes mellitus with ketoacidosis without coma (principal); Z79.4 Long term (current) use of insulin; J44.9 Chronic obstructive pulmonary disease, unspecified; Z20.822 Contact with and (suspected) exposure to COVID-19; I10 Essential (primary) hypertension; I25.10 Atherosclerotic heart disease of native coronary artery without angina pectoris; F17.210 Nicotine dependence, cigarettes, uncomplicated; E03.9 Hypothyroidism, unspecified; E78.5 Hyperlipidemia, unspecified
CPT/HCPCS: 36415; 71045; 80048; 80076; 80305; 81001; 82009; 82150; 82803; 82962; 83036; 83605; 83690; 83735; 84436; 84443; 84484; 85007; 85025; 87040; 93005; 93306; 96365; 96366; 96367; 96375; 99285; C9803; U0003; U0005

== ENCOUNTER → 2021-10-28 15:01 | Outpatient (CLI) | payer MEDICARE, SELFPAY ==
--- NOTE | 2021-10-28 15:04 | CT_ITS ---
FINAL REPORT CLINICAL HISTORY: H/O NICOTINE DEPENDENCE, CURRENT SMOKER, SMOKED FOR 40 YEARS, 1 PACK PER DAY COMPARISON: September 03, 2020 and June 02, 2020 FINDINGS: Low-Dose Chest CT CTDI vol (mGy): 2.90 DLP (mGy-cm): 96.90 Axial images were obtained from the lung apex to the mid abdomen by computed tomography. Low-dose protocol was utilized. FINDINGS: CHEST: There is no axillary adenopathy. There is no hilar or mediastinal adenopathy. The heart is proper size. There is mild to moderate coronary artery calcification. There is no pericardial or pleural effusion. Limited images of the upper abdomen are unremarkable. Lung window images demonstrate which mild changes of emphysema and mild pulmonary scarring. There are multiple small pulmonary nodules including a stable 6 mm nodule in the right lung apex on image 8. There are multiple other smaller nodules which are stable. There is a calcified granuloma in the right lower lobe. No new mass or nodule is identified. There is mild diffuse bronchial wall thickening consistent with bronchitis. IMPRESSION: Multiple small stable nodules. Mild diffuse bronchial wall thickening consistent with bronchitis. Lung RADS category 2. Recommend 12 month follow-up low-dose chest CT. Reviewed, Interpreted and Dictated by Jorge Isabel III, MD Transcribed by Xiao Rod Authenticated and [facility]
== END ==
PROVIDERS: PCP Family Medicine; Visit Provider Family Medicine
DX: Z87.891 Personal history of nicotine dependence (principal); Z12.2 Encounter for screening for malignant neoplasm of respiratory organs
CPT/HCPCS: 71271

== ENCOUNTER → 2021-12-03 12:10 | Outpatient (CLI) | payer MEDICARE, SELFPAY | PROVIDERS: PCP Family Medicine; Visit Provider Surgery | DX: Z01.812 Encounter for preprocedural laboratory examination (principal); Z20.822 Contact with and (suspected) exposure to COVID-19; R19.5 Other fecal abnormalities | CPT/HCPCS: C9803; U0003; U0005 ==

== ENCOUNTER 2021-12-06 09:55 | Day surgery (SDC) | payer MEDICARE, SELFPAY ==
[2021-12-06 10:50] VITALS: BP 176/79; PULSE 80; RESP 18; TEMP 36.7; O2SAT 94; BMI 24.1
[2021-12-06 11:04] LABS: POC Glucose,Bedside 217 (70-110)
--- NOTE | 2021-12-06 11:12 | P.PN_ITS ---
[facility] Anesthesia Checklist - Patient Identification Patient Identification: Arm Band - Structural Data Admitted From: Home Planned Operative Procedure/s: colonoscopy Consent for Planned Operative Procedure(s) Verified: Yes Verified Documents: Surgical Consent, History and Physical - NPO Status Verified Time NPO: 00:00 - Additional verifications Anesthesia Reactions: No - Airway Assessment C-Spine Mobility Assessed: Yes (mp2) TMJ Mobility Assessed: Yes Dentition: Dentures-good fit - Neurological Assessment Level of Consciousness: Awake, Alert - Anesthesia Plan Anesthesia Risk discussed: Yes Anesthesia Plan: Verified ASA Class: III Anesthesia Type: MAC [facility] History I have reviewed the patient's past medical history: Yes Medical History: Reports:: Coronary Artery Disease, Diabetes Mellitus Type 2, Hyperlipidemia, Hypertension, Lung Disease Denies:: Cancer, Diabetes Mellitus Type 1, Internal Pacemaker, MRSA, Seizures *Have you ever received a pneumonia vaccine?: Yes *Have you received a flu vaccine this season?: Yes Other Medical History: Reports: Hypothyroidism Anesthesia experience/problems:: nac Laterality Cases: Bilateral: Tonsillectomy Other Surgeries: Yes: Appendectomy, Cholecystectomy, Hysterectomy-Total, Other. No: Pacemaker Amputation: No Fractures: No - *Social History Last grade of school completed: High school graduate Smoking Status: Current every day smoker Tobacco Type: cigarettes # Packs/Day (cigarettes): 1 Alcohol Intake: current Alcohol Intake Frequency:: a few times a month Substance Use Type: denies use *Occupational Status:: retired Housing: house Household Members: none *Travel in the last 8 weeks: None Family Hx:: No significant family history
[2021-12-06 12:05] VITALS: BP 89/43; PULSE 78; RESP 16; TEMP 36.7; O2SAT 98
[2021-12-06 12:15] VITALS: BP 97/47; PULSE 78; RESP 16; O2SAT 98
--- NOTE | 2021-12-06 12:19 | P.PCN_ITS ---
- Procedure: Date: 12/06/21 Patient Date of :: 1950 Procedure Performed:: Colonoscopy with polypectomy Indications:: Screening Performing Provider:: Adi Baker MD Referring Provider:: . Sedation:: Monitored anesthesia care Procedure:: After informed consent was obtained the patient was taken to the endoscopy suite. Sedation ensued after the patient was transferred to the left lateral decubitus position. Pulse, blood pressure, and oxygen saturation were monitored throughout the procedure. Digital rectal exam revealed no significant ab normality. The colonoscope was placed in position. The entire colon was evaluated. The colonoscope was carefully removed and the patient was transferred to recovery in stable condition. Please see findings and specimens below for detail. Findings:: Bowel preparation moderate Significant spasticity/lack of relaxation Hemorrhoidal cushions/tags Complex lobulated pedunculated polyp at 25 cm Specimens:: Complex lobulated pedunculated polyp at 25 cm (hot snare and cold biopsy forceps) Recommendations:: Timing of repeat colonoscopy is pending pathology but will likely be around 2 years secondary to size/nature of polyp, spasticity/lack of relaxation, and moderate bowel preparation Complications:: No immediate Estimated blood obtained (mL): 1
[2021-12-06 12:25] VITALS: BP 128/70; PULSE 82; RESP 17; O2SAT 96
[2021-12-06 12:35] VITALS: BP 145/82; PULSE 84; RESP 17; O2SAT 96
[2021-12-06 12:59] VITALS: BP 141/76; PULSE 82; RESP 18; TEMP 36.6; O2SAT 95
== END 2021-12-06 12:59 | disposition home or self-care (01) ==
PROVIDERS: PCP Family Medicine; Visit Provider Surgery
PROC: 0DJD8ZZ Inspection of Lower Intestinal Tract, Via Natural or Artificial Opening Endoscopic (ICD-10-PCS; principal; 2021-12-06 11:00)
DX: Z12.11 Encounter for screening for malignant neoplasm of colon (principal); K63.5 Polyp of colon; I11.9 Hypertensive heart disease without heart failure; I25.10 Atherosclerotic heart disease of native coronary artery without angina pectoris; I10 Essential (primary) hypertension; E78.5 Hyperlipidemia, unspecified; Z72.0 Tobacco use; Z79.4 Long term (current) use of insulin; Z79.899 Other long term (current) drug therapy
CPT/HCPCS: 45385; 82962; 88305

== ENCOUNTER → 2022-07-12 08:32 | Outpatient (CLI) | payer MEDICARE, SELFPAY ==
--- NOTE | 2022-07-12 08:39 | MM_ITS ---
PROCEDURE INFORMATION: Exam: MG Bilateral Screening 3D Mammography Exam date and time: 07/12/2022 8:29 AM Age: 71 years old Clinical indication: Screening examination TECHNIQUE: Imaging protocol: Bilateral Screening tomosynthesis and 2D mammography including computer-aided detection (CAD) when performed. COMPARISON: MG MM DIG SCREENING MAMM BI W/CAD 02/15/2021 3:22 PM FINDINGS: MAMMOGRAPHY: Breast composition: The breasts are heterogeneously dense, which may obscure small masses. Mass: None. Architectural distortion: None. Calcifications: No suspicious calcifications. Asymmetric density: None. Skin thickening: None. Axillary adenopathy: None. IMPRESSION: No mammographic evidence of malignancy. Annual screening is recommended unless otherwise clinically indicated. ASSESSMENT: BI-RADS Category 1: Negative
--- NOTE | 2022-07-12 08:40 | XR_ITS ---
FINAL REPORT TECHNIQUE: Bone densitometry calculations of the lumbar spine and left hip were obtained. CLINICAL HISTORY: post menopausal FINDINGS: DEXA BONE DENSITY AXIAL SKELETON Using L1-4, the bone mineral density of the spine is 0.927 g/cm2, corresponding to T-score of -1.1. Using the left hip, the bone mineral density of the total hip is 0.679 g/cm2, corresponding to a T-score of -2.2. NOTE: T-score: Standard deviation compared with peak bone mass of young adult mean. *Following the recommendations of the International Society of Bone densitometry, classification of hip BMD is based on the lower of two T-scores; total hip or femoral neck. IMPRESSION: Diminished bone mineral density of the lumbar spine and left hip consistent with osteopenia. FRAX 10 year fracture risk is 5.1% for a hip fracture and 18% for a major osteoporotic fracture. Reviewed, Interpreted and Dictated by Jorge Isabel III, MD Transcribed by Xiao Rod Authenticated and . [facility]
== END ==
PROVIDERS: PCP Family Medicine; Visit Provider Family Medicine
DX: Z12.31 Encounter for screening mammogram for malignant neoplasm of breast (principal); Z78.0 Asymptomatic menopausal state
CPT/HCPCS: 77063; 77067; 77080

== ENCOUNTER → 2022-11-17 14:50 | Outpatient (CLI) | payer MEDICARE, SELFPAY ==
--- NOTE | 2022-11-17 14:55 | XR_ITS ---
FINAL REPORT CLINICAL HISTORY: DISORDER OF NECK FINDINGS: 6 views of the cervical spine were obtained. There is no acute fracture or malalignment. There is multilevel degenerative disc disease that is most pronounced in the lower cervical spine. The precervical soft tissue swelling. There is fusion of C2 and C3 vertebral bodies. IMPRESSION: Degenerative disc disease No acute abnormality. Reviewed, Interpreted and Dictated by Barbie Hawthorne MD Transcribed by Clement Lynn Authenticated and [facility]
== END ==
PROVIDERS: PCP Family Medicine; Visit Provider Family Medicine
DX: M53.82 Other specified dorsopathies, cervical region (principal)
CPT/HCPCS: 72050

== ENCOUNTER 2022-11-20 07:29 | Observation (INO) | payer MEDICARE, SELFPAY ==
[2022-11-20] VITALS (14 sets, daily range): BP systolic 86–136; BP diastolic 30–96; PULSE 102–115; RESP 15–25; TEMP 36.6–37; O2SAT 92–97; BMI 23.4
--- NOTE | 2022-11-20 07:29 | ECG_ITS ---
APPROVED REPORT Exam: Resting ECG HR:117 bpm ECG Measurements Heart Rate 117 AXES MD 174 P 82 QRSd 102 QRS -41 QT 330 T 73 QTc 400 Conclusion SINUS TACHYCARDIA POSSIBLE RIGHT ATRIAL ENLARGEMENT [0.25mV P-WAVE] POSSIBLE LEFT ATRIAL ENLARGEMENT [-0.1mV P-WAVE IN V1/V2] LEFT AXIS DEVIATION [QRS AXIS < -30] INCOMPLETE RIGHT BUNDLE BRANCH BLOCK [90+ ms QRS DURATION, TERMINAL R IN V1/V2, 40+ ms S IN I/aVL/V4/V5/V6] SEPTAL MYOCARDIAL INFARCTION , OF INDETERMINATE AGE [40+ ms Q WAVE IN V1/V2] ABNORMAL ECG UNCONFIRMED REPORT Electronically signed by : Juan Duggan MD 11/20/2022 17:57:18
--- NOTE | 2022-11-20 07:33 | XR_ITS ---
FINAL REPORT CLINICAL HISTORY: Shortness of breath and chest pain COMPARISON: 02/24/2021 FINDINGS: No acute pulmonary opacity is present. There is no evidence of effusion or pneumothorax. Mediastinum is unremarkable. Heart size is normal. IMPRESSION: No acute abnormality. Reviewed, Interpreted and Dictated by Mireille Salas MD Transcribed by Nica Aguirre Authenticated and [facility]
[2022-11-20 07:43] LABS: Basophils # 0.1 K/mm3 (0-0.2); Basophils % 0.5 % (0.1-2.0); Eosinophils # 0.7 K/mm3 (0.0-0.4); Eosinophils % 4.1 % (0.1-12.0); Hematocrit 46.4 % (37.0-47.0); Hemoglobin 14.5 g/dL (12.2-16.2); Lymphocytes # 2.6 K/mm3 (0.7-4.5); Lymphocytes % 15.5 % (10-50); Mean Corpuscular HGB Conc 31.4 g/dL (31.8-35.4); Mean Corpuscular Hemoglobin 31.2 pg (27.0-31.2); Mean Corpuscular Volume 99.4 fl (81-99); Mean Platelet Volume 9.2 fl (7.4-10.4); Monocytes # 0.7 K/mm3 (0.1-1.0); Monocytes % 4.1 % (1.7-9.3); Neutrophils # 12.7 K/mm3 (1.8-7.8); Neutrophils % 75.9 % (37.0-80.0); Platelet Count 238 K/mm3 (142-424); Red Blood Count 4.66 M/mm3 (4.20-5.40); Red Cell Distribution Width 13.4 % (11.5-17.5); White Blood Count 16.7 K/mm3 (4.8-10.8)
--- NOTE | 2022-11-20 07:47 | HMH.EDGENADL ---
Discharge Plan Disposition Patient Disposition: Admitted Chief Complaint: Chest Pain Prescriptions Prescriptions: No Action insulin lispro [Humalog U-100 Insulin] 100 unit/mL solution 10 unit SQ DIRECTED Rx Instructions: USE SLIDING SCALE, MAX DOSE 12 UNITS/DOSE SQ 4 TIMES A DAY insulin glargine [Lantus U-100 Insulin] 100 unit/mL solution 14 unit SQ DAILY metoprolol tartrate 25 MG tablet 25 mg PO BID albuterol sulfate 18 GM HFA aerosol inhaler 1 - 2 puffs IH Q6HP PRN (Reason: Shortness Of Breath Or Wheezing) levothyroxine 137 MCG tablet 137 mg PO DAILY aspirin 81 MG tablet,delayed release (DR/EC) 81 mg PO DAILY cyclobenzaprine 5 mg tablet 5 mg PO TID Breztri Aerosphere 160-9-4.8 mcg/actuation HFA aerosol inhaler 2 inh INHALATION BID atorvastatin 40 MG tablet 40 mg PO HS Referrals Follow up/Referrals: Efren Gee MD [Primary Care Provider] - See instructions Clinical Impressions Clinical Impression: COPD exacerbation, Sepsis Discharge ED Provider: Raul Quinn General Adult HPI General Chief complaint: Chest Pain Stated complaint: chest pain Time Seen by Provider: 11/20/22 07:33 Mode of Arrival: Wheelchair Source of Information: Patient Limitations: No Limitations Description of Symptoms (Recalled from ER Triage Doc. by RN): Pt reports R shoulder pain that began lastnight, reports pain is r/t a fall last week. Pt reports pain began radiating into chest appros 2 am today. Pt describes feeling like her heart is beating really fast. Pt has loose cough noted, reports hx of COPD. History of Present Illness HPI narrative: This is a 72-year-old female with history of hypertension, hyperlipidemia, hypothyroidism, CAD, diabetes, COPD not currently on home oxygen presenting with multiple complaints. Patient states that since she fell about a week prior to this date, she injured her right shoulder. She saw her primary care doctor who took an x-ray of her shoulder, she has not heard anything about the x-ray since that time. Patient states that since that time, she has had episodes of pain shooting from her right shoulder down through her chest. She has had associated constant shortness of breath, cough productive of yellow sputum, and fatigue. Also had 1 episode of vomiting that was nonbloody, nonbilious. Denies chest pain in the absence of shoulder pain, fevers or chills, abdominal pain, medication change, medication noncompliance, travel, or any other concerns. Related Data Home Medications Medication Instructions Recorded Confirmed insulin glargine 100 unit/mL 14 unit SQ DAILY Diabetes 05/18/17 11/20/22 subcutaneous solution (Lantus U-100 Insulin) insulin lispro 100 unit/mL 10 unit SQ DIRECTED Diabetes 05/18/17 11/20/22 subcutaneous solution (Humalog U-100 Insulin) atorvastatin 40 mg tablet 40 mg PO HS Cholesterol 11/05/18 11/20/22 albuterol sulfate 90 mcg/actuation 1 - 2 puffs IH Q6HP PRN Shortness 02/25/21 11/20/22 aerosol inhaler Of Breath Or Wheezing metoprolol tartrate 25 mg tablet 25 mg PO BID Hypertension 02/25/21 11/20/22 aspirin 81 mg tablet,delayed 81 mg PO DAILY thinner 12/06/21 11/20/22 release levothyroxine 137 mcg tablet 137 mg PO DAILY Supplement 12/06/21 11/20/22 budesonide 160 mcg-glycopyr 9 2 inh inhalation BID Breathing 11/20/22 11/20/22 mcg-formot 4.8 mcg/actuation HFA Problems inhaler (Breztri Aerosphere) cyclobenzaprine 5 mg tablet 5 mg PO TID shoulder pain 11/20/22 11/20/22 Allergies Allergy/AdvReac Type Severity Reaction Status Date / Time codeine [CODEINE] Allergy Unknown ITCHING Verified 12/06/21 10:36 [facility] Disclaimer: The information contained in this section may have been updated after the patient was seen, as this information can be updated by other users. Social History Smoking Status: Current every day smoker tobacco type: cigarettes packs per day: 1 second hand exp
--- NOTE | 2022-11-20 07:50 | PC.NURSE ---
rad notified of xray order
[2022-11-20 07:54] LABS: MANUAL DIFFERENTIAL MANUAL DIFFERENTIAL (MANUAL DIFF)
[2022-11-20 07:59] LABS: Alanine Aminotransferase 86 U/L (12-78); Albumin Level 4.2 g/dl (3.5-5.0); Albumin/Globulin Ratio 1.6 (1.1-1.8); Alkaline Phosphatase 299 U/L (38-126); Anion Gap 15.4 mEq/L (5-15); Aspartate Amino Transferase 76 U/L (14-36); Bilirubin,Total 0.5 mg/dl (0.2-1.3); Blood Urea Nitrogen 20 mg/dl (7-17); Calcium 9.7 mg/dl (8.4-10.2); Carbon Dioxide 25 mmol/L (22.0-30.0); Chloride 96 mmol/L (98-107); Creatinine Clearance Estimated 44 mL/min (50-200); Estimated Glomerular Filt Rate 99 ml/min (>60); GFR (African American) 119 ML/MIN (>60); Globulin 2.7 g/dL (1.3-3.2); Potassium 4.4 mmoL/L (3.5-5.1); Sodium 132 mmol/L (136-145); Total Protein,Serum 6.9 g/dl (6.3-8.2)
--- NOTE | 2022-11-20 08:00 | PC.NURSE ---
notified RT of Vbg order
[2022-11-20 08:04] LABS: Eosinophils % 2 % (0-3); Lymphocytes % 16 % (10-50); Monocytes % 4 % (2-9); Neutrophils % 78 % (42-76); Total Cells Counted 100
[2022-11-20 08:05] LABS: D-Dimer 0.78 ug/mL (0.0-0.5); Platelet Estimate Normal; RBC Morphology Normal
[2022-11-20 08:05] LABS: VBG Base Excess -2.4 mmol/L (-2.4-2.3); VBG HCO3 23.3 mmol/L (23-30); VBG Oxygen Saturation 61.2 % (50-70); VBG PCO2 43.7 mmol/L (35-51); VBG PH 7.35 mmol/L (7.31-7.41); VBG PO2 31.5 mmol/L (28-40); VBG Total CO2 24.7 mmol/L (23-27)
--- NOTE | 2022-11-20 08:08 | PC.NURSE ---
XR at bedside
[2022-11-20 08:10] LABS: Glucose 410 mg/dl (74-100)
--- NOTE | 2022-11-20 08:10 | PC.NURSE ---
notified ER of critical glucose
[2022-11-20 08:12] LABS: NT Pro Brain Natriuretic Pep. 393 pg/mL (0-125); Troponin I < 0.01 ng/ml (0.00-0.034)
[2022-11-20 08:16] LABS: Procalcitonin 0.142 ng/mL (0.0-2.0); T4 (Thyroxine) 15.3 ug/dl (5.53-11.0)
[2022-11-20 08:30] LABS: POC Glucose,Bedside 376 (70-110)
[2022-11-20 08:30] LABS: Thyroid Stimulating Hormone < 0.02 uIU/mL (0.465-4.68)
--- NOTE | 2022-11-20 08:31 | CT_ITS ---
FINAL REPORT CLINICAL HISTORY: tachycardia and hypoxemia COMPARISON: None FINDINGS: CTA CHEST WITH CONTRAST TECHNIQUE: Thin section axial CT with IV contrast supplemented with 3D reconstructed MIP images. FINDINGS: Pulmonary vessels enhance in a normal fashion without evidence of embolic disease. Thoracic aorta is normal in caliber without evidence of aneurysm or dissection. Changes of emphysema are present. No pleural or pericardial effusion is seen . No adenopathy or mass lesion is present . IMPRESSION: 1. No evidence of pulmonary embolism, no acute lung abnormality seen. Reviewed, Interpreted and Dictated by Mireille Salas MD Transcribed by Mckenzie Ruiz Authenticated and [facility]
--- NOTE | 2022-11-20 08:43 | PC.NURSE ---
notified rad of ct order
--- NOTE | 2022-11-20 08:48 | PC.NURSE ---
ER at updating pt on POC
[2022-11-20 09:13] LABS: POC Glucose,Bedside 313 (70-110)
--- NOTE | 2022-11-20 09:23 | PC.NURSE ---
FS 285, reported to MD. Putnam for ice chips. Pt updated on plan of care.
--- NOTE | 2022-11-20 09:26 | PC.NURSE ---
[facility]
[2022-11-20 09:29] LABS: POC Glucose,Bedside 285 (70-110)
--- NOTE | 2022-11-20 10:48 | PC.NURSE ---
Rounding completed. Pt updated on plan of care. Patient requesting to speak with Dr. Quinn. notified. No further complaints.
[2022-11-20 11:23] LABS: Troponin I < 0.01 ng/ml (0.00-0.034)
--- NOTE | 2022-11-20 11:27 | PC.NURSE ---
patient complaining of nausea, nurse notified.
--- NOTE | 2022-11-20 11:30 | PC.NURSE ---
ER MD Quinn at
--- NOTE | 2022-11-20 11:43 | PC.NURSE ---
DR RAMIRES SPEAKING WITH DR GARCIA
--- NOTE | 2022-11-20 11:44 | PC.NURSE ---
ER MD Quinn speaking with Dr. Gee
--- NOTE | 2022-11-20 11:50 | PC.NURSE ---
notified care management of admission, spoke with kleber
--- NOTE | 2022-11-20 11:54 | PC.NURSE ---
Pt updated on plan of care.
--- NOTE | 2022-11-20 12:17 | PC.NURSE ---
Attempted report x 1
--- NOTE | 2022-11-20 12:27 | PC.NURSE ---
Report provided to JIM Bright
--- NOTE | 2022-11-20 12:53 | PC.NURSE ---
arrived from ED by w/c
--- NOTE | 2022-11-20 13:14 | HMH.PHAINT1 ---
Pharmacy Intervention Comments: Patient's home medications reviewed and verified with patient and external pharmacy. -Stuart Levy, Pharm Student
[2022-11-20 14:21] LABS: Troponin I < 0.01 ng/ml (0.00-0.034)
--- NOTE | 2022-11-20 14:28 | EXP.HP ---
History of Present Illness *Admission Date: 11/20/22 *Reason for visit:: chest pain *History of present illness: Ms. Armenta is a 72-year-old female With a history of type 1 diabetes, hypertension, hyperlipidemia, hypothyroidism, COPD, tobacco use disorder, coronary artery disease, who presented to [facility] emergency room for evaluation after suffering with anterior chest discomfort starting in the shoulders radiating into the anterior upper chest and into the neck. There was some shortness of breath with this. She denies having a fever. Cough is as usual and is nonproductive.Patient states that she felt fine yesterday. She was able to eat and drink normally. Blood sugars were satisfactory yesterday as well. With evaluation in the emergency room she was noted to have an elevated white blood cell count of 16,700. Liver function studies were also elevated. She was afebrile but tachycardic with a heart rate of 110-120. Blood sugars were elevated and she received insulin after which they did decrease less than 400 and were 376, 313, and 285. She was also given a fluid bolus of 1370 along with a DuoNeb treatment, aspirin 325 mg, dexamethasone 10 mg IV, Vistaril 25 mg p.o. she was. She was started on Rocephin 2 g IV x1 dose and was placed on sliding scale. She received Zofran 4 mg as well. CTA of the chest revealed no evidence of pulmonary embolism and no acute lung abnormality. Patient did have a fall about a week ago and she did have cervical spine x-rays on 11/17/2022 which revealed degenerative disc disease but no acute abnormality.She had laboratory test completed at [facility] on 11/17/2022 which revealed an A1c of 9.1%. Glucose on that day was 208. White blood cell count was 10,600. Kidney function was normal. At the time of this exam patient is drowsy. She had no sleep at all last night. She is comfortable at present. [facility] Disclaimer: The information contained in this section may have been updated after the patient was seen, as this information can be updated by other users. Medical History (Updated 11/20/22 @ 19:07 by Efren Gee MD) COPD (chronic obstructive pulmonary disease) Hypertension Hypothyroid Type 1 diabetes Umbilical hernia Surgical History (Updated 11/20/22 @ 13:54 by Kaila Trujillo RN) History of appendectomy History of cholecystectomy History of hysterectomy History of tonsillectomy Family History (Updated 11/20/22 @ 13:52 by Kaila Trujillo RN) Diabetes Social History (Updated 11/20/22 @ 13:55 by Kaila Trujillo, JIM) Smoking Status: Current every day smoker tobacco type: cigarettes packs per day: 1 second hand exposure: No alcohol intake: current substance use type: denies use current occupational status: retired Travel in the last 8 weeks: None household members: none housing: house current occupational exposures/hazards: No caffeine: Yes Review of Systems Constitutional Constitutional: Denies fatigue, Denies fever(s), Denies frequent falls and Reports headache(s) Eyes Eyes: Denies change in vision ENT Ears, Nose, Mouth, and Throat: Denies disequilibrium, Denies dizziness, Denies dysphagia, Denies otalgia, Reports headache(s), Reports neck pain, Denies post nasal drip and Denies sore throat *Cardiovascular Cardiovascular: Reports chest pain (upper anterior), Reports chest pain at rest, Denies dyspnea, Denies edema and Reports palpitations *Respiratory Respiratory: Reports cough (non productive), Denies dyspnea and Denies hemoptysis *Gastrointestinal Gastrointestinal: Denies dysphagia, Denies hematemesis, Denies loose stools, Denies melena, Reports nausea and Reports vomiting (x1 in the ER) *Genitourinary Genitourinary: Denies difficulty voiding *Musculoskeletal Musculoskeletal: Denies abnormal gait, Reports arthralgias (bilateral shoulders) and Reports neck pain *Neurologic Neurologic: Denies abnormal gait, Denies abnormal speech, Denies behavioral changes
[2022-11-20 14:31] LABS: POC Glucose,Bedside 433 (70-110)
[2022-11-20 15:12] LABS: Microscopic, Urine URINE MICROSCOPIC (MICROSCOPIC)
[2022-11-20 15:26] LABS: Appearance,Urine CLEAR (Clear); Bilirubin,Urine Negative (Negative); Blood, Urine Negative (Negative); Color,Urine YELLOW (Yellow); Glucose,Urine (UA) 1+ (Negative); Ketones,Urine 1+ (Negative); Leukocyte Esterase,Urine Negative (Negative); Nitrate,Urine Negative (Negative); PH,Urine 5.5 (5.0-8.5); Protein,Urine Negative (Negative); Specific Gravity, Urine <= 1.005 (1.005-1.030); Urobilinogen,Urine 0.2 EU/dl (0.2)
--- NOTE | 2022-11-20 16:37 | PC.NURSE ---
Pt's glucose has remained elevated. FSBS 433 and 410. Humalog 15 units administered x2. Pt's BP has improved this afternoon. She is no longer hypotensive. UA obtained and sent to lab. Pt has ambulated to BR with assistance. Tolerated well. Call light within reach. Family at bedside.
[2022-11-20 16:42] LABS: POC Glucose,Bedside 410 (70-110)
[2022-11-20 17:09] LABS: Squamous Epithelial Cell,Urine Occasional #/hpf (0-5); WBC,Urine Occasional #/hpf (0-3)
--- NOTE | 2022-11-20 17:25 | PC.NURSE ---
Awaiting additional orders from MD. ORDOÑEZ notified.
[2022-11-20 20:42] LABS: POC Glucose,Bedside 299 (70-110)
[2022-11-21] VITALS: BP 135/69; PULSE 103; PULSE 90; RESP 20; TEMP 37.9; O2SAT 93
[2022-11-21 04:00] VITALS: BP 125/49; PULSE 80; PULSE 90; RESP 19; TEMP 36.8; O2SAT 93; BMI 25.4
--- NOTE | 2022-11-21 05:07 | PC.NURSE ---
Patient has rested most of the night. Did have pain early in the shift but it was controlled with medication on the JUN. No other issues were noted by patient.
[2022-11-21 06:15] LABS: POC Glucose,Bedside 231 (70-110)
[2022-11-21 06:52] LABS: Basophils % 0.1 % (0.1-2.0); Eosinophils # 0.1 K/mm3 (0.0-0.4); Eosinophils % 0.3 % (0.1-12.0); Hematocrit 41.5 % (37.0-47.0); Lymphocytes # 1.6 K/mm3 (0.7-4.5); Lymphocytes % 9.2 % (10-50); Mean Corpuscular HGB Conc 30.3 g/dL (31.8-35.4); Mean Corpuscular Hemoglobin 30.2 pg (27.0-31.2); Mean Corpuscular Volume 99.7 fl (81-99); Mean Platelet Volume 9.3 fl (7.4-10.4); Monocytes # 0.8 K/mm3 (0.1-1.0); Monocytes % 4.5 % (1.7-9.3); Neutrophils # 14.6 K/mm3 (1.8-7.8); Neutrophils % 85.9 % (37.0-80.0); Platelet Count 202 K/mm3 (142-424); Red Blood Count 4.16 M/mm3 (4.20-5.40); Red Cell Distribution Width 13.8 % (11.5-17.5)
[2022-11-21 07:04] LABS: Hemoglobin 12.6 g/dL (12.2-16.2)
[2022-11-21 07:06] LABS: MANUAL DIFFERENTIAL MANUAL DIFFERENTIAL (MANUAL DIFF)
[2022-11-21 07:07] LABS: Alanine Aminotransferase 67 U/L (12-78); Albumin Level 3.3 g/dl (3.5-5.0); Albumin/Globulin Ratio 1.3 (1.1-1.8); Alkaline Phosphatase 189 U/L (38-126); Anion Gap 12.3 mEq/L (5-15); Aspartate Amino Transferase 55 U/L (14-36); Bilirubin,Total 0.3 mg/dl (0.2-1.3); Blood Urea Nitrogen 20 mg/dl (7-17); Carbon Dioxide 23 mmol/L (22.0-30.0); Chloride 106 mmol/L (98-107); Creatinine Clearance Estimated 48 mL/min (50-200); Estimated Glomerular Filt Rate 99 ml/min (>60); GFR (African American) 119 ML/MIN (>60); Globulin 2.6 g/dL (1.3-3.2); Glucose 225 mg/dl (74-100); Potassium 5.3 mmoL/L (3.5-5.1); Sodium 136 mmol/L (136-145); Total Protein,Serum 5.9 g/dl (6.3-8.2)
[2022-11-21 07:13] VITALS: BP 141/70; PULSE 102; RESP 17; TEMP 36.8; O2SAT 94
[2022-11-21 07:16] LABS: Anisocytosis 1+; Hypochromasia 1+; Lymphocytes % 11 % (10-50); Macrocytosis 1+; Monocytes % 7 % (2-9); Neutrophils % 82 % (42-76); Ovalocytes 1+; Platelet Estimate Normal; Total Cells Counted 100
--- NOTE | 2022-11-21 07:48 | EXP.ACUTE.PN ---
Subjective *Date: 11/21/22 *Time: 08:28 Interval history: Patient states she feels so much better. She did sleep well last night. She has ambulated to the bathroom with help without difficulties. She is voiding QS. Her chest does not hurt this a.m. and she is able to move arms without any discomfort. She denies shortness of breath and cough. She has had no nausea and is actually hungry for food. He uses Dexcom for her blood sugars which works well for her. Blood sugars have improved. She did have a fever of 100.2 at 12 midnight. Blood pressure has improved. Heart rate remains 80-110. White blood cell count this morning 17,000 ?? Steroids. Liver function studies have improved. All culture results are pending. Medical Exam Vital signs and Labs for Last 24 Hours: Vital Signs Temp Pulse Pulse Resp BP BP Pulse Ox 11/21/22 07:13 98.3 F 102 H 17 141/70 H 94 L 11/21/22 06:43 11/21/22 05:00 11/21/22 04:00 80 11/21/22 00:00 90 11/21/22 04:00 98.2 F 90 19 125/49 L 93 L 11/21/22 03:00 11/21/22 00:00 100.2 F H 103 H 20 135/69 93 L 11/21/22 01:00 11/20/22 23:00 11/20/22 21:00 11/20/22 20:00 11/20/22 20:00 110 H 11/20/22 20:00 98.2 F 114 H 18 110/50 L 93 L 11/20/22 18:48 11/20/22 16:00 110 H 11/20/22 16:49 11/20/22 15:29 98.6 F 115 H 18 136/50 L 97 11/20/22 15:00 11/20/22 15:00 112/44 L 11/20/22 13:30 11/20/22 12:58 98 F 112 H 25 H 92/30 L 11/20/22 11:34 112 H 25 H 92/30 L 96 11/20/22 11:32 115 H 15 86/42 L 95 11/20/22 11:00 105 H 18 112/56 L 96 11/20/22 10:30 109 H 16 111/43 L 94 L 11/20/22 10:00 102 H 20 109/44 L 92 L 11/20/22 09:30 102 H 18 133/96 H 96 11/20/22 08:30 103 H 20 127/59 L 96 11/20/22 08:00 109 H 20 132/55 L 94 L O2 Del Method 11/21/22 07:13 Room Air 11/21/22 06:43 Room Air 11/21/22 05:00 Room Air 11/21/22 04:00 11/21/22 00:00 11/21/22 04:00 Room Air 11/21/22 03:00 Room Air 11/21/22 00:00 Room Air 11/21/22 01:00 Room Air 11/20/22 23:00 Room Air 11/20/22 21:00 Room Air 11/20/22 20:00 Room Air 11/20/22 20:00 11/20/22 20:00 Room Air 11/20/22 18:48 Room Air 11/20/22 16:00 11/20/22 16:49 Room Air 11/20/22 15:29 Room Air 11/20/22 15:00 Room Air 11/20/22 15:00 11/20/22 13:30 Room Air 11/20/22 12:58 Room Air 11/20/22 11:34 11/20/22 11:32 11/20/22 11:00 Room Air 11/20/22 10:30 Room Air 11/20/22 10:00 Room Air 11/20/22 09:30 11/20/22 08:30 Room Air 11/20/22 08:00 Room Air Intake and Output 11/20/22 11/21/22 11/21/22 19:59 03:59 11:59 Intake Total 0 / 0 360 / 360 Output Total 200 / 200 0 / 200 800 / 1000 Balance -200 / -200 0 / -200 -440 / -640 Intake: Intake, Oral Amount 0 / 0 360 / 360 Output: Output, Urine Amount 200 / 200 0 / 200 800 / 1000 Other: Number of Unmeasured Voids 1 1 Weight 129 lb 8 oz Patient Weight 11/21/22 11:59 Weight 129 lb 8 oz Laboratory Results - last 24 hr 11/20/22 07:35: WBC 16.7 H, RBC 4.66, Hgb 14.5, Hct 46.4, MCV 99.4 H, MCH 31.2, MCHC 31.4 L, RDW 13.4, Plt Count 238, MPV 9.2, Neut % (Auto) 75.9, Lymph % (Auto) 15.5, Will % (Auto) 4.1, Eos % (Auto) 4.1, Baso % (Auto) 0.5, Neut # (Auto) 12.7 H, Lymph # (Auto) 2.6, Will # (Auto) 0.7, Eos # (Auto) 0.7 H, Baso # (Auto) 0.1, Total Counted 100, Neutrophils % (Manual) 78 H, Lymphocytes % (Manual) 16, Monocytes % (Manual) 4, Eosinophils % (Manual) 2, Platelet Estimate Normal, RBC Morphology Normal, D-Dimer 0.78 H, Sodium 132 L, Potassium 4.4, Chloride 96 L, Carbon Dioxide 25, Anion Gap 15.4 H, BUN 20 H, Creatinine 0.60, Estimated Creat Clear 44, Estimated GFR 99, Est GFR ( Amer) 119, Glucose 410 H*, Lactate 2.0, Calcium 9.7, Total Bilirubin 0.5, AST 76 H, ALT 86 H, Alkaline Phosphatase 299 H, Troponin I < 0.01, NT-Pro-B Natri
[2022-11-21 08:00] VITALS: PULSE 100
[2022-11-21 08:20] LABS: Acetone, Serum (Rapid) Small (None Detect)
[2022-11-21 11:06] LABS: POC Glucose,Bedside 299 (70-110)
[2022-11-21 11:12] VITALS: BP 128/57; PULSE 93; RESP 17; TEMP 36.7; O2SAT 96
[2022-11-21 12:00] VITALS: PULSE 90
--- NOTE | 2022-11-21 14:12 | HMH.PHAINT1 ---
Pharmacy Intervention Comments: Discharge medications discussed with patient and other family members. -Cefdiner (watch for N/D) -Gabapentin (watch for Dizziness) Carrington Valentin, PharmD student
--- NOTE | 2022-11-21 23:14 | EXP.DC.SUM ---
General Admission date:: 11/20/22 Discharge date: 11/21/22 HPI HPI HPI: Ms. Armenta is a 72-year-old female With a history of type 1 diabetes, hypertension, hyperlipidemia, hypothyroidism, COPD, tobacco use disorder, coronary artery disease, who presented to [facility] emergency room for evaluation after suffering with anterior chest discomfort starting in the shoulders radiating into the anterior upper chest and into the neck. There was some shortness of breath with this. She denies having a fever. Cough is as usual and is nonproductive.Patient states that she felt fine yesterday. She was able to eat and drink normally. Blood sugars were satisfactory yesterday as well. With evaluation in the emergency room she was noted to have an elevated white blood cell count of 16,700. Liver function studies were also elevated. She was afebrile but tachycardic with a heart rate of 110-120. Blood sugars were elevated and she received insulin after which they did decrease less than 400 and were 376, 313, and 285. She was also given a fluid bolus of 1370 along with a DuoNeb treatment, aspirin 325 mg, dexamethasone 10 mg IV, Vistaril 25 mg p.o. she was. She was started on Rocephin 2 g IV x1 dose and was placed on sliding scale. She received Zofran 4 mg as well. CTA of the chest revealed no evidence of pulmonary embolism and no acute lung abnormality. Patient did have a fall about a week ago and she did have cervical spine x-rays on 11/17/2022 which revealed degenerative disc disease but no acute abnormality.She had laboratory test completed at [facility] on 11/17/2022 which revealed an A1c of 9.1%. Glucose on that day was 208. White blood cell count was 10,600. Kidney function was normal. At the time of this exam patient is drowsy. She had no sleep at all last night. She is comfortable at present. Hospital Course Hospital Course Hospital Course: Patient was continued on IV fluids at 150mL /hr and her labs were monitored. She was continued on Rocephin empirically for leukocytosis with pending urinalysis. Her levothyroxine was decreased from 200 to 137 mcg daily. She was started on sliding scale insulin due to an elevated blood sugar after admission of 433. Her blood pressure improved after an IV fluid bolus. By 11/21/2022 she felt much better. She was able to ambulate to the bathroom with help. She had no further chest pain and was able to move her arms without any discomfort. Her blood sugars improved. She did have a fever of 100.2 at 12 midnight. She was restarted back on metoprolol as her blood pressure had normalized. She was continued on Rocephin. Her diet was advanced. By the afternoon of 11/21/2022, the patient had continued to do well and was stable to discharge home on oral cefdinir and gabapentin. She will follow-up in the office [facility] in 1 week. Her blood and sputum cultures are still pending. Exam Data for Last 24 hours Vital signs and Labs for Last 24 Hours: Temp Pulse Resp BP Pulse Ox O2 Del Method 98.0 F 90 17 128/57 L 96 Room Air 11/21/22 11:12 11/21/22 12:00 11/21/22 11:12 11/21/22 11:12 11/21/22 11:12 11/21/22 11:12 Laboratory Results - last 24 hr 11/21/22 05:39: POC Glucose 231 H 11/21/22 06:35: WBC 17.0 H, RBC 4.16 L, Hgb 12.6 D, Hct 41.5, MCV 99.7 H, MCH 30.2, MCHC 30.3 L, RDW 13.8, Plt Count 202, MPV 9.3, Neut % (Auto) 85.9 H, Lymph % (Auto) 9.2 L, Rosebud % (Auto) 4.5, Eos % (Auto) 0.3, Baso % (Auto) 0.1, Neut # (Auto) 14.6 H, Lymph # (Auto) 1.6, Rosebud # (Auto) 0.8, Eos # (Auto) 0.1, Baso # (Auto) 0.0, Total Counted 100, Neutrophils % (Manual) 82 H, Lymphocytes % (Manual) 11, Monocytes % (Manual) 7, Platelet Estimate Normal, Hypochromasia 1+, Anisocytosis 1+, Macrocytosis 1+, Ovalocytes 1+, Sodium 136, Potassium 5.3 H D, Chloride 106, Carbon Dioxide 23, Anion Gap 12.3, BUN 20 H, Creatinine 0.60, Estimated Creat Clear 48, Estimated GFR 99, Est GFR ( Amer) 119, Glucose 225 H
--- NOTE | 2022-11-22 12:32 | CARE MANAGER ---
Contacted patient related to hospital discharge. She states she picked up her medication and is aware of follow up appointment. Denies any questions or concerns. JIM Weiss
== END 2022-11-21 15:12 | disposition home or self-care (01) ==
LOC: ER 11:57 → 2ND 13:14
PROVIDERS: Nurse Practitioner Family; Admitting Provider Family Medicine; Emergency Provider Emergency Medicine; PCP Family Medicine; Visit Provider Family Medicine
DX: J44.1 Chronic obstructive pulmonary disease with (acute) exacerbation (principal); E10.10 Type 1 diabetes mellitus with ketoacidosis without coma; D72.828 Other elevated white blood cell count; F17.210 Nicotine dependence, cigarettes, uncomplicated; E03.9 Hypothyroidism, unspecified; I95.9 Hypotension, unspecified; R00.0 Tachycardia, unspecified; M53.82 Other specified dorsopathies, cervical region; M50.30 Other cervical disc degeneration, unspecified cervical region; M54.12 Radiculopathy, cervical region; Z79.4 Long term (current) use of insulin; Z79.899 Other long term (current) drug therapy; R06.9 Unspecified abnormalities of breathing
CPT/HCPCS: G0378; 36415; 71045; 71275; 80053; 81001; 82009; 82803; 82962; 83605; 83880; 84145; 84436; 84443; 84484; 85007; 85025; 85378; 87040; 87070; 87205; 93005; 99285; J0696; J2405; Q9967

== ENCOUNTER 2022-12-17 16:46 | Inpatient (IN) | payer MEDICARE, SELFPAY ==
[2022-12-17] VITALS (22 sets, daily range): BP systolic 66–156; BP diastolic 30–73; PULSE 91–113; RESP 16–41; TEMP 36.6–37.1; O2SAT 88–100; BMI 21.9; BMI 23.8
--- NOTE | 2022-12-17 | ECG_ITS ---
APPROVED REPORT Exam: Resting ECG HR:90 bpm ECG Measurements Heart Rate 90 AXES SD 177 P 82 QRSd 140 QRS 270 QT 397 T 73 QTc 445 Conclusion SINUS RHYTHM WITH SINUS ARRHYTHMIA RIGHT AXIS DEVIATION [QRS AXIS > 100] RIGHT BUNDLE BRANCH BLOCK [120+ ms QRS DURATION, UPRIGHT V1, 40+ ms S IN I/aVL/V4/V5/V6] ST ELEVATION, CONSIDER SEPTAL INJURY [MARKED ST ELEVATION W/O NORMALLY INFLECTED T-WAVE IN V1/V2] ACUTE VA INTERPRETATION BASED ON A DEFAULT AGE OF 40 YEARS UNCONFIRMED REPORT Electronically signed by : Juan Duggan MD 12/19/2022 19:47:22
[2022-12-17 16:59] LABS: VBG Base Excess -26.8 mmol/L (-2.4-2.3); VBG HCO3 6.3 mmol/L (23-30); VBG Oxygen Saturation 73.8 % (50-70); VBG PCO2 34.4 mmol/L (35-51); VBG PO2 56.8 mmol/L (28-40); VBG Total CO2 7.4 mmol/L (23-27)
--- NOTE | 2022-12-17 16:59 | XR_ITS ---
PROCEDURE INFORMATION: Exam: XR Chest Exam date and time: 12/17/2022 6:35 PM Age: 72 years old Clinical indication: Device placement; Ett placement (vent status); Additional info: SOA TECHNIQUE: Imaging protocol: Radiologic exam of the chest. Views: 1 view. COMPARISON: CR XR CHEST PORTABLE 11/20/2022 8:02 AM FINDINGS: Tubes, catheters and devices: Endotracheal tube tip terminating 3.8 cm above the rhea. Lungs: Unremarkable. No consolidation. Pleural spaces: Unremarkable. No pleural effusion. No pneumothorax. Heart/Mediastinum: Unremarkable. No cardiomegaly. Bones/joints: Unremarkable. IMPRESSION: 1. Appropriately positioned endotracheal tube. 2. No acute pulmonary findings.
--- NOTE | 2022-12-17 17:00 | PC.NURSE ---
BEHAVIOUR SUPPORT TEACHER and @ BS
[2022-12-17 17:04] LABS: VBG PH 6.88 mmol/L (7.31-7.41)
[2022-12-17 17:15] LABS: Chloride 94 mmol/L (98-107); Sodium 133 mmol/L (136-145)
[2022-12-17 17:17] LABS: Alanine Aminotransferase 67 U/L (12-78); Aspartate Amino Transferase 71 U/L (14-36); Blood Urea Nitrogen 31 mg/dl (7-17); Estimated Glomerular Filt Rate 20 ml/min (>60); GFR (African American) 24 ML/MIN (>60)
--- NOTE | 2022-12-17 17:17 | CT_ITS ---
PROCEDURE INFORMATION: Exam: CTA Chest With Contrast Exam date and time: 12/17/2022 8:40 PM Age: 72 years old Clinical indication: Shortness of breath; Additional info: Acidotic, dka, reported leg swelling TECHNIQUE: Imaging protocol: Computed tomographic angiography of the chest with contrast. Exam focused on the arteries. 3D rendering (Not supervised by radiologist): MIP and/or 3D reconstructed images were created by the technologist. Radiation optimization: All CT scans at this facility use at least one of these dose optimization techniques: automated exposure control; mA and/or kV adjustment per patient size (includes targeted exams where dose is matched to clinical indication); or iterative reconstruction. Contrast material: ISOVUE; Contrast volume: 75 ml; Contrast route: INTRAVENOUS (IV); REPORTING DATA: Count of CT and Cardiac NM exams in prior 12 months: This patient has received [address] and 0 known cardiac nuclear medicine studies in the 12 months prior to the current study. COMPARISON: CT ANGIO CHEST PE PROTOCOL 11/20/2022 8:56 AM FINDINGS: Tubes, catheters and devices: Endotracheal tube appears to be in good position. Pulmonary arteries: There is inadequate contrast opacification of the pulmonary arteries to assess for pulmonary embolus. Aorta: Mild scattered atherosclerotic calcification throughout the aorta. No evidence of aortic aneurysm. Lungs: Mild focal alveolar infiltrate in the dependent portions of the bilateral upper lobes. Mild dependent atelectasis in the bilateral lower lobes. Pleural spaces: Unremarkable. No pneumothorax. No pleural effusion. Heart: Unremarkable. No cardiomegaly. No pericardial effusion. Coronary arteries: Moderate coronary artery calcification is noted. Lymph nodes: Unremarkable. No enlarged lymph nodes. Bones/joints: Mild degenerative disc changes throughout thoracic spine. No vertebral body compression or acute fracture. Soft tissues: Moderate diffuse body wall edema. IMPRESSION: 1. Study is nondiagnostic with regards to evaluation for possible pulmonary embolus. 2. Mild bilateral upper lobe infiltrates 3. Diffuse body wall edema without significant pleural effusion.
--- NOTE | 2022-12-17 17:17 | CT_ITS ---
PROCEDURE INFORMATION: Exam: CTA Head With Contrast, Arteriography Exam date and time: 12/17/2022 8:36 PM Age: 72 years old Clinical indication: Stroke-like symptoms; Altered mental status/memory loss; Additional info: ANY, found desirae, edilberto TECHNIQUE: Imaging protocol: Computed tomographic angiography of the head with contrast. Exam focused on the arteries. 3D rendering (Not supervised by radiologist): MIP and/or 3D reconstructed images were created by the technologist. Radiation optimization: All CT scans at this facility use at least one of these dose optimization techniques: automated exposure control; mA and/or kV adjustment per patient size (includes targeted exams where dose is matched to clinical indication); or iterative reconstruction. Contrast material: ISOVUE; Contrast volume: 75 ml; Contrast route: INTRAVENOUS (IV); REPORTING DATA: Count of CT and Cardiac NM exams in prior 12 months: This patient has received [address] and 0 known cardiac nuclear medicine studies in the 12 months prior to the current study. COMPARISON: CT HEAD/BRAIN WO CON 12/17/2022 8:30 PM FINDINGS: Limitations: Limited evaluation due to streak and motion artifact. ANTERIOR CIRCULATION: Right internal carotid artery: Not well assessed due to artifact. Right middle cerebral artery: No occlusion or significant stenosis. No aneurysm. Right anterior cerebral artery: No occlusion or significant stenosis. No aneurysm. Left internal carotid artery: Not well assessed due to artifact. Left middle cerebral artery: No occlusion or significant stenosis. No aneurysm. Left anterior cerebral artery: No occlusion or significant stenosis. No aneurysm. POSTERIOR CIRCULATION: Right vertebral artery: No occlusion or significant stenosis. No aneurysm. Left vertebral artery: No occlusion or significant stenosis. No aneurysm. Basilar artery: No occlusion or significant stenosis. No aneurysm. Right posterior cerebral artery: No occlusion or significant stenosis. No aneurysm. Left posterior cerebral artery: No occlusion or significant stenosis. No aneurysm. Brain: No definite mass, mass effect, or midline shift. Cerebral ventricles: No ventriculomegaly. Bones/joints: Unremarkable. No acute fracture. Soft tissues: Unremarkable. IMPRESSION: Limited evaluation due to streak and motion artifact. No identifiable large vessel stenosis or occlusion.
--- NOTE | 2022-12-17 17:17 | CT_ITS ---
PROCEDURE INFORMATION: Exam: CTA Neck With Contrast Exam date and time: 12/17/2022 8:36 PM Age: 72 years old Clinical indication: Stroke-like symptoms; Altered mental status/memory loss; Additional info: AMS found down dka TECHNIQUE: Imaging protocol: Computed tomographic angiography of the neck with contrast. 3D rendering (Not supervised by radiologist): MIP and/or 3D reconstructed images were created by the technologist. Radiation optimization: All CT scans at this facility use at least one of these dose optimization techniques: automated exposure control; mA and/or kV adjustment per patient size (includes targeted exams where dose is matched to clinical indication); or iterative reconstruction. Contrast material: ISOVUE; Contrast volume: 75 ml; Contrast route: INTRAVENOUS (IV); REPORTING DATA: Count of CT and Cardiac NM exams in prior 12 months: This patient has received [address] and 0 known cardiac nuclear medicine studies in the 12 months prior to the current study. COMPARISON: CT ANGIO CHEST PE PROTOCOL 11/20/2022 8:56 AM FINDINGS: Limitations: Limited evaluation due to streak and motion artifact. Tubes, catheters and devices: Endotracheal tube. Right common carotid artery: Atherosclerotic changes of the carotid bulb without flow-limiting stenosis. No dissection or occlusion. Right internal carotid artery: No stenosis of the extracranial segment. No dissection or occlusion. Right external carotid artery: No occlusion or stenosis of the origin. Left common carotid artery: Atherosclerotic changes of the carotid bulb without flow-limiting stenosis. No dissection or occlusion. Left internal carotid artery: No stenosis of the extracranial segment. No dissection or occlusion. Left external carotid artery: No occlusion or stenosis of the origin. Right vertebral artery: No stenosis. No dissection or occlusion. Left vertebral artery: No stenosis. No dissection or occlusion. Soft tissues: Mild anasarca. Bones/joints: No acute fracture. Lungs: Emphysematous and fibrotic changes within the upper lobes. Minimal bronchial wall thickening. IMPRESSION: Limited evaluation due to streak and motion artifact. No definite large vessel occlusion. REFERENCES: NASCET CRITERIA. The degree of stenosis in the cervical segment of the internal carotid artery is based on NASCET criteria. Normal is no stenosis. Mild is less than 50% stenosis. Moderate is 50-69% stenosis. Severe is 70% to 99% stenosis. Total occlusion is no detectable patent lumen.
[2022-12-17 17:18] LABS: Albumin Level 2.8 g/dl (3.5-5.0); Albumin/Globulin Ratio 1.3 (1.1-1.8); Alkaline Phosphatase 158 U/L (38-126); Bilirubin,Total 0.8 mg/dl (0.2-1.3); Calcium 8.9 mg/dl (8.4-10.2); Globulin 2.1 g/dL (1.3-3.2); Total Protein,Serum 4.9 g/dl (6.3-8.2)
--- NOTE | 2022-12-17 17:22 | PC.NURSE ---
spoke with Douglas in pharmacy for dosing vancomycin, zosyn, bicarb drip
[2022-12-17 17:28] LABS: Acetone, Serum (Rapid) Small (None Detect)
[2022-12-17 17:29] LABS: Basophils # 0.1 K/mm3 (0-0.2); Basophils % 0.6 % (0.1-2.0); Eosinophils # 0.1 K/mm3 (0.0-0.4); Eosinophils % 0.4 % (0.1-12.0); Hematocrit 48.5 % (37.0-47.0); Hemoglobin 13.9 g/dL (12.2-16.2); Lymphocytes # 3.9 K/mm3 (0.7-4.5); Lymphocytes % 19.7 % (10-50); Mean Corpuscular HGB Conc 28.7 g/dL (31.8-35.4); Mean Corpuscular Hemoglobin 33.1 pg (27.0-31.2); Mean Corpuscular Volume 115.2 fl (81-99); Mean Platelet Volume 10.5 fl (7.4-10.4); Neutrophils # 14.5 K/mm3 (1.8-7.8); Neutrophils % 74.3 % (37.0-80.0); Platelet Count 318 K/mm3 (142-424); Red Blood Count 4.21 M/mm3 (4.20-5.40); Red Cell Distribution Width 14.6 % (11.5-17.5); White Blood Count 19.5 K/mm3 (4.8-10.8)
--- NOTE | 2022-12-17 17:30 | PC.NURSE ---
Currently @ BS with patient monitoring patient v/s and patient's current status
[2022-12-17 17:35] LABS: Creatinine Clearance Estimated 20 mL/min (50-200); Magnesium 2.3 mg/dl (1.6-2.3)
[2022-12-17 17:39] LABS: Anion Gap 40.9 mEq/L (5-15); Carbon Dioxide 5 mmol/L (22.0-30.0); Glucose 979 mg/dl (74-100); Potassium 6.9 mmoL/L (3.5-5.1)
[2022-12-17 17:46] LABS: MANUAL DIFFERENTIAL MANUAL DIFFERENTIAL (MANUAL DIFF)
--- NOTE | 2022-12-17 17:53 | PC.NURSE ---
Dennys FERNANDEZ paged Douglas in pharmacy for levophed dosing, stated by RN
--- NOTE | 2022-12-17 17:54 | PC.NURSE ---
Dennys RN speaking with Douglas in pharmacy
--- NOTE | 2022-12-17 18:00 | PC.NURSE ---
Currently @ BS with patient monitoring patient v/s and patient's current status
--- NOTE | 2022-12-17 18:06 | PC.NURSE ---
Dennys RN spoke with Douglas in pharmacy who states bicard of levophed is compatible with LR
--- NOTE | 2022-12-17 18:15 | PC.NURSE ---
22 IV in right hand/wrist obtained at this time by Dennys FERNANDEZ
--- NOTE | 2022-12-17 18:16 | PC.NURSE ---
Spoke with Douglas from [facility] to verify insulin bolus and gtt. He will place the orders.
--- NOTE | 2022-12-17 18:28 | PC.NURSE ---
Addendum entered by Isabel Polanco RN 12/17/22 18:29: and at Original Note: respiratory at bs
--- NOTE | 2022-12-17 18:28 | PC.NURSE ---
preparing for intubation
--- NOTE | 2022-12-17 18:30 | PC.NURSE ---
Currently @ BS with patient monitoring patient v/s and patient's current status
--- NOTE | 2022-12-17 18:30 | PC.NURSE ---
Addendum entered by Isabel Polanco RN 12/17/22 19:27: 183 donna 120 mcg given Addendum entered by Isabel Polanco RN 12/17/22 19:19: 50 mcg of fentanly given at 184 Original Note: etomidate 20mg given at 183 donna 3 ml given at 183 dosed per pharmacy and MD succ 90 mg given at 183 Pulse check 1834- present 116/41 115/54 at 183 Jon HS presented to room intubation at successful at 183, respiratory assisting with breathing 7.5 ent placed, 20 at the teeth confirmation with bilateral breath sounds and purple color change with co2 portable chest order placed at 183 radiology at bs 183 Left radial artery art line insertion per MD- 1847, goal of 65 map secured with dressing, pt tolerated well 50mcg given at 184 per MD verbal order 1843- 94/50 pulse present with palpation per Jon HS- HR 83 per monitor Per MD if the pt has a map of 65 and above can go to xray.
[2022-12-17 18:34] LABS: Lymphocytes % 26 % (10-50); Monocytes % 1 % (2-9); Neutrophils % 73 % (42-76); Platelet Estimate Normal; Total Cells Counted 100
[2022-12-17 18:35] LABS: RBC Morphology Normal
--- NOTE | 2022-12-17 18:57 | PC.NURSE ---
Spoke with Douglas at [facility] for Malcolm push dosing at the request of . Douglas verifies that putting 10mg of malcolm in 250ml of NS will yield 40mcg per ml and safe for 50mcg per push dosing. gave 120mcg total prior to intubation for pressure support.
--- NOTE | 2022-12-17 19:00 | PC.NURSE ---
Currently @ BS with patient monitoring patient v/s and patient's current status
--- NOTE | 2022-12-17 19:06 | HMH.EDGENADL ---
Discharge Plan Disposition Chief Complaint: Altered Mental Status Discharge ED Provider: Sami Scanlon General Adult HPI General Chief complaint: Altered Mental Status Stated complaint: altered mental status Time Seen by Provider: 12/17/22 16:55 Mode of Arrival: EMS Source of Information: Patient Limitations: No Limitations Description of Symptoms (Recalled from ER Triage Doc. by RN): Presents to ED via EMS. EMS states patient was found unresponsive by family. Daughter reports she is a diabetic. Patient unresposive upon arrival to ED. History of Present Illness HPI narrative: Patient is 72-year-old female with largely unknown past medical history presents the emergency department for evaluation of being found down in the setting of insulin-dependent diabetes. Last known normal 10 PM last night. Patient was found sprawled out on the floor gasping for air, not responsive with her environment, encephalopathic intermittently. Patient was placed on nonrebreather, fingerstick blood glucose read as high, and she was transferred here for continued evaluation. Per limited chart review patient has history of COPD, type 1 diabetes, hyperlipidemia. Related Data Home Medications Medication Instructions Recorded Confirmed insulin glargine 100 unit/mL 14 unit SQ DAILY Diabetes 05/18/17 11/20/22 subcutaneous solution (Lantus U-100 Insulin) insulin lispro 100 unit/mL 0 unit SQ DIRECTED Diabetes 05/18/17 11/20/22 subcutaneous solution (Humalog U-100 Insulin) atorvastatin 40 mg tablet 40 mg PO HS Cholesterol 11/05/18 11/20/22 albuterol sulfate 90 mcg/actuation 1 - 2 puffs IH Q6HP PRN COPD 02/25/21 11/20/22 aerosol inhaler metoprolol tartrate 25 mg tablet 25 mg PO BID Blood Pressure 02/25/21 11/20/22 aspirin 81 mg tablet,delayed 81 mg PO DAILY Heart Health 12/06/21 11/20/22 release levothyroxine 137 mcg tablet 137 mg PO DAILY Thyroid 12/06/21 11/20/22 budesonide 160 mcg-glycopyr 9 2 inh inhalation BID Copd 11/20/22 11/20/22 mcg-formot 4.8 mcg/actuation HFA inhaler (Breztri Aerosphere) cyclobenzaprine 5 mg tablet 5 mg PO TID PRN Muscle Pain 11/20/22 11/20/22 Previous Rx's Medication Instructions Recorded cefdinir 300 mg capsule 300 mg PO Q12H #14 caps 11/21/22 gabapentin 300 mg capsule 300 mg PO BID #60 caps 11/21/22 Allergies Allergy/AdvReac Type Severity Reaction Status Date / Time codeine [CODEINE] Allergy Unknown ITCHING Verified 12/06/21 10:36 [facility] Disclaimer: The information contained in this section may have been updated after the patient was seen, as this information can be updated by other users. Medical History (Updated 11/25/22 @ 00:00 by Brianne Awan) COPD (chronic obstructive pulmonary disease) Hypertension Hypothyroid Type 1 diabetes Umbilical hernia Surgical History (Updated 11/20/22 @ 13:54 by Kaila Trujillo RN) History of appendectomy History of cholecystectomy History of hysterectomy History of tonsillectomy Family History (Updated 11/20/22 @ 13:52 by Kaila Trujillo, JIM) Other Diabetes Social History (Updated 11/20/22 @ 13:55 by Kaila Trujillo RN) Smoking Status: Unknown if ever smoked second hand exposure: No alcohol intake: current substance use type: denies use current occupational status: retired Travel in the last 8 weeks: None household members: none housing: house current occupational exposures/hazards: No caffeine: Yes ROS Obtained: Yes unobtainable due to mental status Physical Exam General General appearance: obtunded Comment: Not reacting with her environment, intermittently spontaneously moving extremities Head Head exam: atraumatic and normocephalic Eye Eye exam: Present PERRL ENT ENT exam: Present mucous membranes dry Neck Neck exam: Present normal inspection Chest Chest inspection: Present normal inspection and symmetric chest wall rise Respiratory Respiratory exam: Present normal lung sounds bilat
--- NOTE | 2022-12-17 19:19 | PC.NURSE ---
temp serrano placed
--- NOTE | 2022-12-17 19:30 | PC.NURSE ---
Currently @ BS with patient monitoring patient v/s and patient's current status
--- NOTE | 2022-12-17 19:31 | PC.NURSE ---
change of shift handoff Dennys RN and this RN to Karla FERNANDEZ and Teresa Coats RN. PT goal map reached at this time. family at bs during report and updated of poc. receiving RN remains at the bs with no further question regarding care and report at this time. pt vss
[2022-12-17 19:33] LABS: Microscopic, Urine URINE MICROSCOPIC (MICROSCOPIC)
[2022-12-17 19:34] LABS: Appearance,Urine CLEAR (Clear); Blood, Urine Negative (Negative); Color,Urine YELLOW (Yellow); Glucose,Urine (UA) 3+ (Negative); Ketones,Urine 1+ (Negative); Leukocyte Esterase,Urine Negative (Negative); Nitrate,Urine POSITIVE (Negative); PH,Urine 5.5 (5.0-8.5); Protein,Urine 1+ (Negative); Urobilinogen,Urine 0.2 EU/dl (0.2)
--- NOTE | 2022-12-17 19:41 | XR_ITS ---
PROCEDURE INFORMATION: Exam: XR Chest Exam date and time: 12/17/2022 10:24 PM Age: 72 years old Clinical indication: Device placement; Ng tube; Additional info: Ng tube placement TECHNIQUE: Imaging protocol: Radiologic exam of the chest. Views: 1 view. COMPARISON: CR XR CHEST PORTABLE 12/17/2022 6:35 PM FINDINGS: Tubes, catheters and devices: Endotracheal tube tip terminating 5.6 cm above the rhea. Subdiaphragmatic course of an enteric tube with tip overlying the expected stomach. Lungs: Unremarkable. No consolidation. Pleural spaces: Unremarkable. No pleural effusion. No pneumothorax. Heart/Mediastinum: Unremarkable. No cardiomegaly. Bones/joints: Unremarkable. IMPRESSION: 1. Lines and tubes as above. Appropriately positioned enteric tube. 2. No acute pulmonary findings.
[2022-12-17 19:48] LABS: Bilirubin,Urine 1+ (Negative)
[2022-12-17 19:49] LABS: Bacteria,Urine Trace /lpf
--- NOTE | 2022-12-17 19:55 | CT_ITS ---
PROCEDURE INFORMATION: Exam: CT Head Without Contrast Exam date and time: 12/17/2022 8:30 PM Age: 72 years old Clinical indication: Stroke-like symptoms; Altered mental status/memory loss; Additional info: AMS TECHNIQUE: Imaging protocol: Computed tomography of the head without contrast. Radiation optimization: All CT scans at this facility use at least one of these dose optimization techniques: automated exposure control; mA and/or kV adjustment per patient size (includes targeted exams where dose is matched to clinical indication); or iterative reconstruction. Other technique: STROKE PROTOCOL was implemented. REPORTING DATA: Count of CT and Cardiac NM exams in prior 12 months: This patient has received [address] and 0 known cardiac nuclear medicine studies in the 12 months prior to the current study. COMPARISON: CR XR CERVICAL SPINE 5V 11/17/2022 3:05 PM FINDINGS: Tubes, catheters and devices: Partially visualized endotracheal tube within the oral cavity. Brain: No acute intracranial hemorrhage, midline shift or mass effect. Mild hypodensities within the cerebral white matter most consistent with chronic small-vessel ischemic changes. Maintained quiñones-white matter differentiation. Cerebral ventricles: No ventriculomegaly. Paranasal sinuses: Minimal scattered mucosal thickening within the paranasal sinuses. Mastoid air cells: Visualized mastoid air cells are well aerated. Bones/joints: Unremarkable. No acute fracture. Soft tissues: Unremarkable. IMPRESSION: Limited evaluation due to streak and motion artifact. No acute intracranial findings. ASSESSMENT: ASPECTS ([facility] Stroke Program Early CT Score) is 10.
--- NOTE | 2022-12-17 19:56 | PC.NURSE ---
pt to ct
--- NOTE | 2022-12-17 20:00 | PC.NURSE ---
Currently @ BS with patient monitoring patient v/s and patient's current status
[2022-12-17 20:03] LABS: Troponin I 0.04 ng/ml (0.00-0.034)
--- NOTE | 2022-12-17 20:10 | PC.NURSE ---
speaking to Dr. Gee now
[2022-12-17 20:28] LABS: Chloride 96 mmol/L (98-107); Sodium 135 mmol/L (136-145)
[2022-12-17 20:30] LABS: Blood Urea Nitrogen 29 mg/dl (7-17); Creatinine Clearance Estimated 23 mL/min (50-200); Estimated Glomerular Filt Rate 23 ml/min (>60); GFR (African American) 28 ML/MIN (>60)
[2022-12-17 20:31] LABS: Alanine Aminotransferase 97 U/L (12-78); Albumin Level 3.1 g/dl (3.5-5.0); Albumin/Globulin Ratio 1.4 (1.1-1.8); Alkaline Phosphatase 176 U/L (38-126); Anion Gap 37.1 mEq/L (5-15); Aspartate Amino Transferase 148 U/L (14-36); Bilirubin,Total 1.2 mg/dl (0.2-1.3); Calcium 8.9 mg/dl (8.4-10.2); Globulin 2.2 g/dL (1.3-3.2); Total Protein,Serum 5.3 g/dl (6.3-8.2)
--- NOTE | 2022-12-17 20:35 | PC.NURSE ---
increase propofol to 10mcg via drip
[2022-12-17 20:44] LABS: Carbon Dioxide 8 mmol/L (22.0-30.0); Glucose 872 mg/dl (74-100); Potassium 6.1 mmoL/L (3.5-5.1)
--- NOTE | 2022-12-17 20:44 | PC.NURSE ---
notified potassium 6.1 ,CO2 8, glucose 872
--- NOTE | 2022-12-17 20:52 | PC.NURSE ---
increased propofol to 15cg
[2022-12-17 21:05] LABS: Reflex Lactic Add Lactic Reflex
--- NOTE | 2022-12-17 21:15 | PC.NURSE ---
increased propofol to 20 mcg
--- NOTE | 2022-12-17 21:16 | PC.NURSE ---
back to room with patient without incident. Notable large area of erythema,edema,tautness to skin surrounding IV. Suspected infiltration of IV infused dye for radiology. angiocath removed, applied cold compresses to site. MD notified.
--- NOTE | 2022-12-17 21:20 | PC.NURSE ---
Currently @ BS with patient monitoring patient v/s and patient's current status
--- NOTE | 2022-12-17 21:28 | PC.NURSE ---
Current propofol titrate to 20mcg, bicarb @ 100ml per hour, levophed 12mcg an hour; current urinary output at 250ml via 16 fr serrano cath
--- NOTE | 2022-12-17 21:31 | PC.NURSE ---
IV 18g initiated to right forearm
--- NOTE | 2022-12-17 21:49 | PC.NURSE ---
call placed to pharmacy re: dosing for zosyn vancomycin.spoke with
--- NOTE | 2022-12-17 22:00 | PC.NURSE ---
Attempted to place PICC line with ultrasound to patient right basilic and right brachial veins. Venous structure was unable to handle PICC line procedure and ultimately was discontinued. Attending and primary nurse notified.
[2022-12-17 22:01] LABS: Lactic Acid Follow Up (RFLX 1) 3.8 mmol/L (0.7-2.1)
--- NOTE | 2022-12-17 22:02 | PC.NURSE ---
ACUTE ADMISSION TO ICU WITH DX OF DKA AND SEPTIC SHOCK TO SERVICE OF DR. GARCIA.
--- NOTE | 2022-12-17 22:03 | PC.NURSE ---
Attempted to call report to mateo Norman RN. She stated she will call back
[2022-12-17 22:23] LABS: Troponin I 0.08 ng/ml (0.00-0.034)
--- NOTE | 2022-12-17 22:29 | PC.NURSE ---
states to discontinue sodium bicarb gtt at this time. masood price made aware at this time
--- NOTE | 2022-12-17 22:55 | PC.NURSE ---
PT TO FLOOR VIA STRETCHER
[2022-12-17 23:21] LABS: Reflex Lactic (2 hrs) Add Lactic Reflex
[2022-12-17 23:35] LABS: Lactic Acid Follow up (RFLX 2) 2.6 mmol/L (0.7-2.1)
[2022-12-17 23:42] LABS: Troponin I 0.16 ng/ml (0.00-0.034)
--- NOTE | 2022-12-17 23:57 | PC.NURSE ---
Pt blood sugar too high to read on glucometer, stat random glucose order per protocol
[2022-12-18] VITALS (39 sets, daily range): BP systolic 86–146; BP diastolic 34–68; PULSE 88–117; RESP 16–30; TEMP 36.8–38.1; O2SAT 96–100; BMI 24.8
[2022-12-18 00:18] LABS: ABG Base Excess -8.4 mmol/L (-2.4-2.3); ABG Oxygen Saturation 100 % (90-100); ABG PCO2 30.3 mmhg (35.0-45.0); ABG PH 7.37 mmol/L (7.35-7.45); ABG PO2 496.9 mmhg (80-100); ABG TCO2 17.9 mmhg (23-27)
[2022-12-18 00:24] LABS: Glucose,Random 809 mg/dL (74-100)
--- NOTE | 2022-12-18 00:27 | EXP.ACUTE.PN ---
Subjective *Date: 12/18/22 *Time: 01:05 Interval history: Called by nurse stating she did not have orders for labs due to DKA and did not have vent management orders or bicarb drip orders. Patient was found down at home and was brought to the ER. She was found to have profound acidosis and be in septic shock. She was intubated and resuscitated in the ER. I was called for admission with the understanding that Dr. Cárdenas had already been consulted and the DKA standing orders had been instituted and broad spectrum antibiotics had been started. Current vent settings are AC, TV 420, FiO2 100%, rate 30, Peep 5 Medical Exam Vital signs and Labs for Last 24 Hours: Vital Signs Temp Pulse Pulse Resp BP BP Pulse Ox 12/17/22 19:00 30 H 100 12/17/22 20:00 98.2 F 101 H 16 156/47 H 88 L 12/17/22 21:30 98.8 F 98 H 30 H 132/45 L 100 12/17/22 19:45 97.9 F 98 H 30 H 156/47 H 99 12/17/22 18:59 91 H 66/30 L 100 12/17/22 18:36 105 H 115/54 L 100 12/17/22 18:35 112 H 116/41 L 100 12/17/22 18:30 113 H 99/38 L 99 12/17/22 18:20 102 H 81/36 L 99 12/17/22 18:18 101 H 30 H 78/51 L 98 12/17/22 18:15 99 H 30 H 96/42 L 98 12/17/22 18:00 94 H 66/44 L 100 12/17/22 17:57 96 H 87/44 L 100 12/17/22 17:51 95 H 78/62 L 100 12/17/22 17:45 96 H 71/53 L 100 12/17/22 17:30 98 H 88/37 L 100 12/17/22 17:28 102 H 95/39 L 100 12/17/22 17:14 99 H 97/41 L 100 12/17/22 17:13 99 H 88/39 L 99 12/17/22 17:09 96 H 88/36 L 99 12/17/22 17:09 100 H 89/37 L 100 12/17/22 16:47 96 H 41 H 110/73 99 O2 Del Method O2 Flow Rate FiO2 12/17/22 19:00 100 12/17/22 20:00 Mechanical Ventilation 12/17/22 21:30 12/17/22 19:45 12/17/22 18:59 Mechanical Ventilation 12/17/22 18:36 Mechanical Ventilation 12/17/22 18:35 Mechanical Ventilation 12/17/22 18:30 Mechanical Ventilation 12/17/22 18:20 Mechanical Ventilation 12/17/22 18:18 Nasal Cannula 5 12/17/22 18:15 Nasal Cannula 5 12/17/22 18:00 Nasal Cannula 12/17/22 17:57 Nasal Cannula 12/17/22 17:51 Nasal Cannula 12/17/22 17:45 Nasal Cannula 12/17/22 17:30 Nasal Cannula 12/17/22 17:28 Nasal Cannula 12/17/22 17:14 Nasal Cannula 12/17/22 17:13 Nasal Cannula 12/17/22 17:09 Nasal Cannula 12/17/22 17:09 Nasal Cannula 12/17/22 16:47 Non-Rebreather Intake and Output 12/17/22 12/17/22 12/18/22 15:59 23:59 07:59 Intake Total 19.977 / 19.977 Balance 19.977 / 19.977 Intake: Intake, Total IV Amount 19.977 / 19.977 Other: Weight 130 lb Laboratory Results - last 24 hr 12/17/22 16:52: WBC 19.5 H, RBC 4.21, Hgb 13.9, Hct 48.5 H, MCV 115.2 H, MCH 33.1 H, MCHC 28.7 L, RDW 14.6, Plt Count 318, MPV 10.5 H, Neut % (Auto) 74.3, Lymph % (Auto) 19.7, Emery % (Auto) 5.0, Eos % (Auto) 0.4, Baso % (Auto) 0.6, Neut # (Auto) 14.5 H, Lymph # (Auto) 3.9, Emery # (Auto) 1.0, Eos # (Auto) 0.1, Baso # (Auto) 0.1, Total Counted 100, Neutrophils % (Manual) 73, Lymphocytes % (Manual) 26, Monocytes % (Manual) 1 L, Platelet Estimate Normal, RBC Morphology Normal, Sodium 133 L, Potassium 6.9 H*, Chloride 94 L, Carbon Dioxide 5 L*, Anion Gap 40.9 H, BUN 31 H, Creatinine 2.40 H, Estimated Creat Clear 20, Estimated GFR 20 L, Est GFR ( Amer) 24 L, Glucose 979 H*, Lactate 12.0 H, Calcium 8.9, Magnesium 2.3, Total Bilirubin 0.8, AST 71 H, ALT 67, Alkaline Phosphatase 158 H, Troponin I 0.04 H, Total Protein 4.9 L, Albumin 2.8 L, Globulin 2.1, Albumin/Globulin Ratio 1.3, Acetone Level Small 12/17/22 16:56: VBG pH 6.88 L, VBG pCO2 34.4 L, VBG pO2 56.8 H, VBG HCO3 6.3 L, VBG Total CO2 7.4 L, VBG O2 Saturation 73.8 H, VBG Base Excess -26.8 L 12/17/22 19:22: Urine Color Yellow, Urine Appearance Clear, Urine pH 5.5, Ur Specific [place] 1.020, Urine Protein 1+, Urine Glucose (UA) 3+, Urine Ketones 1+, Urine Blood Negative, Urine Nitrate
--- NOTE | 2022-12-18 01:31 | PC.NURSE ---
FS too high to read with glucometer, ordered stat random glucose per protocol.
[2022-12-18 01:43] LABS: Anion Gap 19.7 mEq/L (5-15); Blood Urea Nitrogen 37 mg/dl (7-17); Calcium 7.8 mg/dl (8.4-10.2); Carbon Dioxide 19 mmol/L (22.0-30.0); Chloride 98 mmol/L (98-107); Creatinine Clearance Estimated 26 mL/min (50-200); Estimated Glomerular Filt Rate 26 ml/min (>60); GFR (African American) 32 ML/MIN (>60); Potassium 4.7 mmoL/L (3.5-5.1); Sodium 132 mmol/L (136-145)
[2022-12-18 01:45] LABS: Glucose 829 mg/dl (74-100)
[2022-12-18 03:41] LABS: Glucose,Random 728 mg/dL (74-100)
--- NOTE | 2022-12-18 03:49 | PC.NURSE ---
Pt arrived up to floor at 2255. VENT SETTINGS: FIo2 100% PEEP 5 TV 420 RR 30 Drips as follows: Levophed @ 6mcg/min Propofol @ 20mcg/kg/min Insulin @ 8.9u/hr FS-glucometer reads high, stat random glucose ordered per protocol. 2300 Fentanyl started at 25mcg hr 2325 Pt becoming agitated. Propofol titrated up to 25mcg/kg/min 0016 Fentanyl titrated down to 12.5 mcg/hr, levo titrated up to 8mcg/min. BP 87/40 0026 Critical glucose 809 0028 Insulin titrated up to 13.4u/hr 0031 FS- glucometer reads high, 0037 Levo titrated up to 10 mcg/min, BP 89/51 0041 Propofol titrated down to 20mcg/kg/min 0145 Critical glucose 829, stat random glucose ordered. 0146 Insulin drip titrated up to 20u/hr 0048 Levophed titrated up to 12 mcg/min, BP 88/35 0050 Vent setting changed per RT: FIo2 50%, PEEP 5, TV 420, RR 20 0058 Levophed tirated up to 14mcg/min, BP 87/36 0135 Levophed titrated down to 12 mcg/min, BP 107/47 0243 Levphed tirated up to 14 mcg/min, BP 86/43 0327 FS- glucometer reads high, stat random glucose ordered. 0339 Critical glucose 728. 0345 Insulin drip titrated down to 15u/hr per protocol. 0345 Vent settings changed per RT: FIo2 30%, PEEP 5, TV 420, RR 16
--- NOTE | 2022-12-18 05:45 | PC.NURSE ---
Daughter in room states she is unsure of pt home medications. States she will contact her sister to find out.
--- NOTE | 2022-12-18 05:49 | PC.NURSE ---
Levophed titrated down to 12mcg/min, BP 105/76
[2022-12-18 05:51] LABS: POC Glucose,Bedside 502 (70-110)
--- NOTE | 2022-12-18 06:27 | PC.NURSE ---
Spoke with roel MALDONADO concerning levo drip order. States it is ok to mix levo into NS instead of D%W and she will change order.
--- NOTE | 2022-12-18 06:35 | PC.NURSE ---
RESPIRATORY CARE NOTE: SPUTUM SENT TO LAB AT THIS TIME
--- NOTE | 2022-12-18 06:40 | PC.NURSE ---
FS 502, stat random glucose ordered per protocol.
[2022-12-18 06:51] LABS: ABG Base Excess -4.4 mmol/L (-2.4-2.3); ABG HCO3 21.1 mmhg (22.0-26.0); ABG Oxygen Saturation 94 % (90-100); ABG PCO2 38.7 mmhg (35.0-45.0); ABG PH 7.36 mmol/L (7.35-7.45); ABG PO2 70.8 mmhg (80-100); ABG TCO2 22.3 mmhg (23-27)
[2022-12-18 06:53] LABS: Oxygen 30% %; PEEP 5; Tidal Volume 420; Vent Rate 16
[2022-12-18 06:54] LABS: Allen's Test Patient Unable; Source A-LINE
[2022-12-18 07:11] LABS: Chloride 103 mmol/L (98-107); Sodium 136 mmol/L (136-145)
[2022-12-18 07:12] LABS: Potassium 4.1 mmoL/L (3.5-5.1)
[2022-12-18 07:14] LABS: Anion Gap 16.1 mEq/L (5-15); Blood Urea Nitrogen 41 mg/dl (7-17); Carbon Dioxide 21 mmol/L (22.0-30.0); Creatinine Clearance Estimated 24 mL/min (50-200); Estimated Glomerular Filt Rate 23 ml/min (>60); GFR (African American) 28 ML/MIN (>60)
[2022-12-18 07:15] LABS: Calcium 8.3 mg/dl (8.4-10.2)
[2022-12-18 07:25] LABS: Glucose 411 mg/dl (74-100)
--- NOTE | 2022-12-18 07:35 | PC.NURSE ---
Report given to Bridger Trujillo RN. Current vent settings: FIo2 30% PEEP 5 TV 420 RR 16 Current drip rates : propofol: 15mcg/kg/min Fentanyl: 12.5mcg/hr Levophed: 12 mcg/min Insulin: 15u/hr
[2022-12-18 07:36] LABS: Troponin I 0.71 ng/ml (0.00-0.034)
[2022-12-18 07:54] LABS: VBG PCO2 25.3 mmol/L (35-51); VBG PO2 82.8 mmol/L (28-40)
[2022-12-18 07:55] LABS: VBG HCO3 7.7 mmol/L (23-30); VBG Total CO2 8.5 mmol/L (23-27)
[2022-12-18 07:56] LABS: VBG Base Excess -21.9 mmol/L (-2.4-2.3); VBG Oxygen Saturation 93.3 % (50-70)
--- NOTE | 2022-12-18 08:01 | HMH.PHAINT1 ---
Pharmacy Intervention Comments: Medication history complete, medications verified with fill history. - Betty Geronimo, PharmD Candidate 2023
--- NOTE | 2022-12-18 08:01 | EXP.HP ---
History of Present Illness *Admission Date: 12/17/22 *Reason for visit:: Unresponsive *History of present illness: Medical Decision Narrative: In summary patient is a 72-year-old female past medical history described above who presents emergency department after being found down in the setting of insulin-dependent diabetes. Fingerstick blood glucose upon arrival was read as high. I have high suspicion for DKA. VBG shows severe metabolic acidosis without significant hypercarbia however patient is not compensating from a respiratory status given that her respiratory rate is between 10 and 20. Patient will undergo aggressive fluid resuscitation as she is protecting her airway. She has soft blood pressures and intubation will likely be deleterious to the situation at hand. EKG shows hyperacute T waves, widened QRS consistent with severe acidosis and hyperkalemia. Patient will be given 2 g of calcium gluconate and an amp of bicarb. Bicarb drip will be hung. I was at bedside for aggressive fluid resuscitation total 5 L crystalloid. Blood cultures were drawn, broad hematologic labs obtained, broad-spectrum antibiotics started. Awaiting potassium to initiate insulin. Unfortunately patient blood pressure continued to be unacceptable so patient was started on norepinephrine drip. Initial hematologic labs remarkable for marked acidosis, hyperkalemia, sugar is 979, ETHAN. Insulin bolus as well as insulin drip was ordered. Patient underwent rapid sequence intubation with push dose Malcolm-Synephrine administered prior to intubation with success. Respiratory rate set to 30. Mean arterial pressures acceptable on vasopressors patient will now undergo CT imaging to rule out CVA, cerebral edema. There was a remote history of leg swelling which I do not appreciate currently however patient undergo CT pulmonary embolism protocol given that she is in shock. CT imaging by radiology with no acute findings, contrast dosing was not diagnosed for pulmonary embolism. Upon repeat evaluation patient had subsequent CMP which shows improvement of hyperglycemia, acidosis. Current interventions are working. Pulmonary consult placed. The case was subsequently discussed with Dr. Gee who agrees with current interventions and will admit the patient to the ICU for continued evaluation at this time. Bicarb drip was discontinued prior to admission and patient was placed on DKA protocol. The above as per ER documentation. Ms. Armenta is a patient of Dr. Gee's with a history of type 1 diabetes, hypertension, hyperlipidemia, hypothyroidism, COPD, viral meningitis in 2016, coronary artery disease, who presented to [facility] emergency room per EMS with description as above. She was unresponsive. After treatment as above she was admitted. She was then seen by Dr. Gee. He noted profound acidosis and septic shock. At this point she was on the ventilator. Vent settings were changed due to results of ABG with a pH of 7.36 PCO2 of 30 PO2 of 496. FiO2 was decreased to 50% at this time with the decrease in the respiratory rate to 20. She was placed on DKA protocol. At this point she was on Vanco and Zosyn. Zosyn was changed to cefepime due to renal function per pharmacy. This a.m. labs show a BUN of 41 and creatinine of 2.1. Potassium has normalized at 4.1. Blood sugar is 411 with calcium at 8.3. Troponin I has increased from 0.16-0.71. Liver function studies are also noted to be elevated. Urinalysis showed positive nitrites. ABGs with pH of 7.36 PCO2 normal at 38.7 with a PO2 of 70.8 and a bicarb of 21.1 Vent settings reveal tidal volume of 420 FiO2 30%, 5 cm of PEEP, with respiratory rate of 16. Patient remains on insulin drip, Malcolm-Synephrine drip, propofol and fentanyl drips. She is receiving IV fluids at 150 an hour. She has had an adequate urinary output. Daughter and son are at bedside and have been there through the night. They feel she has rested. With exam
--- NOTE | 2022-12-18 08:15 | PC.NURSE ---
RESPIRATORY CARE NOTE: INCREASED OXYGEN TO 40% PER
[2022-12-18 08:33] LABS: POC Glucose,Bedside 335 (70-110)
--- NOTE | 2022-12-18 08:49 | PC.NURSE ---
0640- FSBS 411. Insulin titrated to 10 units/hr 0800 - FSBS 335. Insulin titrated to 6 units FSBS 276. Insulin gtt titrated to 3 units per hour @ 0853. Propofol titrated from 14 mcg to 12 @ 0853. Levophed titrated from 12 mcg to 14 mcg 2 0853.
--- NOTE | 2022-12-18 08:59 | XR_ITS ---
FINAL REPORT TECHNIQUE: Single view chest CLINICAL HISTORY: Confirm PICC line placement FINDINGS: A single view of the chest was obtained. There is an ET tube terminating 4.7 cm above the rhea. Right PICC is seen in the right internal jugular vein. Recommend repositioning. The heart and mediastinum are within normal limits. The lungs are clear. There is no pneumothorax. Osseous structures are unremarkable. IMPRESSION: Right PICC in the right internal jugular vein. Recommend repositioning. Reviewed, Interpreted and Dictated by Andrea Brady MD Transcribed by Alina Bone Authenticated and [facility]
[2022-12-18 09:26] LABS: POC Glucose,Bedside 276 (70-110)
--- NOTE | 2022-12-18 10:14 | PC.NURSE ---
Insulin gtt titrated down to 2 unit/ hr. FSBS 154. Propofol titrated to 8 mcg/kg/min. Levophed is currently infusing @ 14 mcg/min. Fentanyl@ 12.5 mcg/hr.
--- NOTE | 2022-12-18 10:16 | CA_ITS ---
APPROVED REPORT EXAM: Comprehensive 2D, Doppler, and color-flow Echocardiogram Batch Mixer: Rubina Marroquin CRT Ht: 5 ft 2 in Wt: 135lbs BSA: 1.62 BP: 156/47 mmHg Indications: elevated troponin, shock 2D Dimensions LVOT 1.83 cm (M/F) 1.5-2.5 M-Mode Dimensions RVDd 2.15 cm (0.9-2.6) LA Diam 3.34 cm (1.9-4.0) LVDd 4.87 cm (3.5-5.7) Ao Diam 3.12 cm (2.0-3.7) LVDs 3.11 cm (3.5-5.7) IVSd 0.75 cm (0.6-1.1) PWd 0.50 cm (0.6-1.1) EF (Teich) 65.60% FS 36.10% EDV (Teich) 111.20 mL ESV (Teich) 38.20 mL LV Diastology E Decel Time 233.00 (160-240 msec) E/A Ratio 0.7 Mitral Valve MV E Max Clarke. 65.00 (40-130 cm/s) MV A Velocity 92.00 (40-130 cm/s) E/A Ratio 0.70 MV Decel. Time 233.00 (160-240 ms) MV PHT 68.00 ms Tricuspid Valve TR P. Velocity 308.00 cm/s RAP Estimate 10.00 mmHg RVSP 48.10 mmHg Left Ventricle The left ventricle is normal size. The left ventricular systolic function is hyperdynamic. There is normal left ventricular wall thickness. There are no regional wall motion abnormalities. LVEF is 70%. Right Ventricle Right ventricle is mildly dilated. The right ventricular systolic function is normal. Atria The left atrium size is normal. Right atrium is mildly dilated. There is no Doppler evidence of interatrial shunt. Aortic Valve The aortic valve is mildly thickened. There is no aortic valvular stenosis. No aortic regurgitation is present. Mitral Valve The mitral valve is normal in structure. No evidence of mitral valve stenosis. Trace mitral regurgitation. Tricuspid Valve The tricuspid valve leaflets are thin and pliable. There is mild tricuspid valve regurgitation. RVSP is 38 mmHg + RA pressure. Pulmonic Valve The pulmonary valve is normal in structure. Great Vessels The aortic root is normal in size. The ascending aorta is not well visualized. The IVC is dilated in the setting of mehanical ventilation. Pericardium There is no pericardial effusion. Other Information Study Quality: Fair Conclusion Hyperdynamic LV systolic function. Mildly dilated RV with normal RV function. Mild RA dilation No significant valvular disease. Elevated RVSP = 38 mmHg + RA pressure Electronically signed by : Yoly Howe, 12/19/2022 12:57:52
--- NOTE | 2022-12-18 10:30 | PC.NURSE ---
notified about recent fsbs of 154. New orders placed to change fluids to D5NS w/ 20 K @ 125 ml/hr. Also notified that Arterial line is not working properly.
--- NOTE | 2022-12-18 11:05 | EXP.CARD.CON ---
History of Present Illness History of Present Illness Consult date: 12/18/22 Requesting physician: Efren Gee Chief complaint: dka, septic shock History of present illness: 72 year old white female with past medical hx of DM type 1, HTN, HLD, hypothyroidism, COPD, viral meningitis in 2016 and coronary artery disease presented to emergency department yesterday unresponsive via EMS. Upon presentation to ER patient was noted to be in DKA with respiratory failure. Patient was intubated and admitted for further evaluation and treatment for DKA and septic shock which is being managed by primary service. Initial troponin was 0.16 trending up to 0.71. Cardiology was asked to evaluate for elevated troponin. Patient remains intubated and sedated on propofol and fentanyl. Currently on Levo drip. [facility] Disclaimer: The information contained in this section may have been updated after the patient was seen, as this information can be updated by other users. Medical History (Updated 12/18/22 @ 08:56 by Efren Gee MD) COPD (chronic obstructive pulmonary disease) Coronary artery disease Degenerative disc disease, cervical Disorder of neck Hypertension Hypothyroid Type 1 diabetes Umbilical hernia Surgical History History of appendectomy History of cholecystectomy History of hysterectomy History of tonsillectomy Family History (Updated 11/20/22 @ 13:52 by Kaila Trujillo RN) Other Diabetes Social History (Updated 12/18/22 @ 08:23 by Janice Gillis APRN) Smoking Status: Former smoker second hand exposure: No alcohol intake: current substance use type: denies use current occupational status: retired Travel in the last 8 weeks: None household members: none housing: house marital status: current occupational exposures/hazards: No caffeine: Yes Review of Systems Review of Systems Review of systems:: unable to obtain *Neurologic Neurologic: Reports other (Unconscious) Exam Data for Last 24 hours Vital signs and Labs for Last 24 Hours: Temp Pulse Resp BP Pulse Ox O2 Del Method O2 Flow Rate 100.6 F H 98 H 16 93/68 L 98 Mechanical Ventilation 100 12/18/22 08:41 12/18/22 08:00 12/18/22 08:00 12/18/22 08:00 12/18/22 08:00 12/18/22 08:00 12/18/22 04:00 FiO2 30 12/18/22 08:00 Laboratory Results - last 24 hr 12/17/22 16:52: WBC 19.5 H, RBC 4.21, Hgb 13.9, Hct 48.5 H, MCV 115.2 H, MCH 33.1 H, MCHC 28.7 L, RDW 14.6, Plt Count 318, MPV 10.5 H, Neut % (Auto) 74.3, Lymph % (Auto) 19.7, Craig % (Auto) 5.0, Eos % (Auto) 0.4, Baso % (Auto) 0.6, Neut # (Auto) 14.5 H, Lymph # (Auto) 3.9, Craig # (Auto) 1.0, Eos # (Auto) 0.1, Baso # (Auto) 0.1, Total Counted 100, Neutrophils % (Manual) 73, Lymphocytes % (Manual) 26, Monocytes % (Manual) 1 L, Platelet Estimate Normal, RBC Morphology Normal, Sodium 133 L, Potassium 6.9 H*, Chloride 94 L, Carbon Dioxide 5 L*, Anion Gap 40.9 H, BUN 31 H, Creatinine 2.40 H, Estimated Creat Clear 20, Estimated GFR 20 L, Est GFR ( Amer) 24 L, Glucose 979 H*, Lactate 12.0 H, Calcium 8.9, Magnesium 2.3, Total Bilirubin 0.8, AST 71 H, ALT 67, Alkaline Phosphatase 158 H, Troponin I 0.04 H, Total Protein 4.9 L, Albumin 2.8 L, Globulin 2.1, Albumin/Globulin Ratio 1.3, Acetone Level Small 12/17/22 16:56: VBG pH 6.88 L, VBG pCO2 34.4 L, VBG pO2 56.8 H, VBG HCO3 6.3 L, VBG Total CO2 7.4 L, VBG O2 Saturation 73.8 H, VBG Base Excess -26.8 L 12/17/22 19:22: Urine Color Yellow, Urine Appearance Clear, Urine pH 5.5, Ur Specific [place] 1.020, Urine Protein 1+, Urine Glucose (UA) 3+, Urine Ketones 1+, Urine Blood Negative, Urine Nitrate Positive, Urine Bilirubin 1+ A, Urine Urobilinogen 0.2, Ur Leukocyte Esterase Negative, Urine RBC None, Urine WBC 5-10, Ur Squamous Epith Cells 3-5, Urine Bacteria Trace 12/17/22 19:46: Sodium 135 L, Potassium 6.1 H*, Chloride 96 L, Carbon Dioxide 8 L* D, Anion Gap 37.1 H, BUN 29 H, Creat
[2022-12-18 11:55] LABS: POC Glucose,Bedside 168 (70-110)
[2022-12-18 11:55] LABS: POC Glucose,Bedside 154 (70-110)
--- NOTE | 2022-12-18 12:10 | XR_ITS ---
FINAL REPORT TECHNIQUE: Single view chest CLINICAL HISTORY: picc placement 2ND attempt FINDINGS: A single view of the chest was obtained. The heart and mediastinum are within normal limits. There is a right PICC with the tip in the SVC. An NG tube is seen with the tip of the inferior margin of the film. An ET tube is present terminating 6.5 cm above the rhea. The lungs are clear. There is no pneumothorax. Osseous structures are unremarkable. IMPRESSION: No acute cardiopulmonary process. Right PICC with the tip in the SVC. Reviewed, Interpreted and Dictated by Andrea Brady MD Transcribed by Alina Bone Authenticated and [facility]
[2022-12-18 12:19] LABS: Basophils # 0.1 K/mm3 (0-0.2); Eosinophils # 0.1 K/mm3 (0.0-0.4); Eosinophils % 0.4 % (0.1-12.0); Mean Corpuscular Volume 99.5 fl (81-99); Mean Platelet Volume 10.2 fl (7.4-10.4)
[2022-12-18 12:23] LABS: Basophils % 0.3 % (0.1-2.0); Hematocrit 38.5 % (37.0-47.0); Lymphocytes # 3.2 K/mm3 (0.7-4.5); Mean Corpuscular HGB Conc 31.4 g/dL (31.8-35.4); Mean Corpuscular Hemoglobin 31.3 pg (27.0-31.2); Monocytes # 1.8 K/mm3 (0.1-1.0); Monocytes % 5.5 % (1.7-9.3); Neutrophils # 27.4 K/mm3 (1.8-7.8); Neutrophils % 83.9 % (37.0-80.0); Platelet Count 251 K/mm3 (142-424); Red Blood Count 3.87 M/mm3 (4.20-5.40); Red Cell Distribution Width 14.6 % (11.5-17.5); White Blood Count 32.7 K/mm3 (4.8-10.8)
[2022-12-18 12:25] LABS: Hemoglobin 12.1 g/dL (12.2-16.2)
[2022-12-18 12:28] LABS: MANUAL DIFFERENTIAL MANUAL DIFFERENTIAL (MANUAL DIFF)
[2022-12-18 12:43] LABS: Lymphocytes % 15 % (10-50); Monocytes % 8 % (2-9); Neutrophils % 77 % (42-76); Platelet Estimate Normal; RBC Morphology Normal; Total Cells Counted 100
--- NOTE | 2022-12-18 13:05 | ECG_ITS ---
APPROVED REPORT Exam: Resting ECG HR:94 bpm ECG Measurements Heart Rate 94 AXES NE 133 P 68 QRSd 101 QRS -40 QT 347 T 63 QTc 398 Conclusion SINUS RHYTHM LEFT AXIS DEVIATION [QRS AXIS < -30] INCOMPLETE RIGHT BUNDLE BRANCH BLOCK [90+ ms QRS DURATION, TERMINAL R IN V1/V2, 40+ ms S IN I/aVL/V4/V5/V6] SEPTAL MYOCARDIAL INFARCTION , PROBABLY OLD [40+ ms Q WAVE IN V1/V2] ABNORMAL ECG UNCONFIRMED REPORT Electronically signed by : Juan Duggan MD 12/19/2022 19:44:42
[2022-12-18 13:10] LABS: POC Glucose,Bedside 107 (70-110)
[2022-12-18 13:35] LABS: Anion Gap 13.4 mEq/L (5-15); Blood Urea Nitrogen 41 mg/dl (7-17); Carbon Dioxide 23 mmol/L (22.0-30.0); Chloride 106 mmol/L (98-107); Creatinine Clearance Estimated 23 mL/min (50-200); Estimated Glomerular Filt Rate 22 ml/min (>60); GFR (African American) 27 ML/MIN (>60); Glucose 103 mg/dl (74-100); Potassium 4.4 mmoL/L (3.5-5.1); Sodium 138 mmol/L (136-145)
--- NOTE | 2022-12-18 14:17 | DIET.NUTRFU ---
Consulted for hadley score, todays hadley score is 18. No open area at this time. Patient is NPO secondary to intubation. Will re-eval for TF or oral diet as condition progresses
[2022-12-18 15:25] LABS: Anion Gap 12.5 mEq/L (5-15); Blood Urea Nitrogen 43 mg/dl (7-17); Calcium 7.8 mg/dl (8.4-10.2); Carbon Dioxide 25 mmol/L (22.0-30.0); Chloride 107 mmol/L (98-107); Creatinine Clearance Estimated 22 mL/min (50-200); Estimated Glomerular Filt Rate 21 ml/min (>60); GFR (African American) 25 ML/MIN (>60); Glucose 76 mg/dl (74-100); Potassium 4.5 mmoL/L (3.5-5.1); Sodium 140 mmol/L (136-145)
[2022-12-18 15:39] LABS: Vancomycin,Trough 11.2 ug/mL (5.0-10.0)
[2022-12-18 15:42] LABS: POC Glucose,Bedside 82 (70-110)
[2022-12-18 16:14] LABS: Acetone, Serum (Rapid) None Detected (None Detect)
[2022-12-18 16:15] LABS: POC Glucose,Bedside 84 (70-110)
--- NOTE | 2022-12-18 16:25 | EXP.PHA.CONS ---
Pharmacy Consult Date: 12/18/22 Time: 16:25 Referring provider: DR. GARCIA Reason for Consult:: VANCOMYCIN LEVEL Allergies Allergy/AdvReac Type Severity Reaction Status Date / Time codeine [CODEINE] Allergy Unknown ITCHING Verified 12/06/21 10:36 Home Medications Medication Instructions Recorded Confirmed Type insulin glargine 100 unit/mL 14 unit SQ DAILY Diabetes 05/18/17 12/18/22 History subcutaneous solution (Lantus U-100 Insulin) atorvastatin 40 mg tablet 40 mg PO HS Cholesterol 11/05/18 12/18/22 History albuterol sulfate 90 mcg/actuation 1 - 2 puffs IH Q6HP PRN COPD 02/25/21 12/18/22 History aerosol inhaler metoprolol tartrate 25 mg tablet 25 mg PO BID High Blood Pressure 02/25/21 12/18/22 History aspirin 81 mg tablet,delayed 81 mg PO DAILY Heart Health 12/06/21 12/18/22 History release budesonide 160 mcg-glycopyr 9 2 inh inhalation BID Copd 11/20/22 12/18/22 History mcg-formot 4.8 mcg/actuation HFA inhaler (Breztri Aerosphere) cyclobenzaprine 5 mg tablet 5 mg PO TID PRN Muscle Pain 11/20/22 12/18/22 History famotidine 40 mg tablet 40 mg PO HS Acid Reflux 12/18/22 12/18/22 History gabapentin 300 mg capsule 300 mg PO BID Pain 12/18/22 12/18/22 History insulin aspart U-100 100 unit/mL 0 sliding scale dose SQ QID 12/18/22 12/18/22 History (3 mL) subcutaneous pen (Novolog Diabetes FlexPen U-100 Insulin aspart) levothyroxine 200 mcg tablet 200 mcg PO DAILY Thyroid 12/18/22 12/18/22 History meloxicam 15 mg tablet 15 mg PO DAILY Pain 12/18/22 12/18/22 History New Prescriptions to Start Prescriptions: Height: 1.57 m Weight: 61.235 kg Laboratory Results:: Laboratory Results - last 24 hr 12/17/22 16:52: WBC 19.5 H, RBC 4.21, Hgb 13.9, Hct 48.5 H, MCV 115.2 H, MCH 33.1 H, MCHC 28.7 L, RDW 14.6, Plt Count 318, MPV 10.5 H, Neut % (Auto) 74.3, Lymph % (Auto) 19.7, [place] % (Auto) 5.0, Eos % (Auto) 0.4, Baso % (Auto) 0.6, Neut # (Auto) 14.5 H, Lymph # (Auto) 3.9, [place] # (Auto) 1.0, Eos # (Auto) 0.1, Baso # (Auto) 0.1, Total Counted 100, Neutrophils % (Manual) 73, Lymphocytes % (Manual) 26, Monocytes % (Manual) 1 L, Platelet Estimate Normal, RBC Morphology Normal, Sodium 133 L, Potassium 6.9 H*, Chloride 94 L, Carbon Dioxide 5 L*, Anion Gap 40.9 H, BUN 31 H, Creatinine 2.40 H, Estimated Creat Clear 20, Estimated GFR 20 L, Est GFR ( Amer) 24 L, Glucose 979 H*, Lactate 12.0 H, Calcium 8.9, Magnesium 2.3, Total Bilirubin 0.8, AST 71 H, ALT 67, Alkaline Phosphatase 158 H, Troponin I 0.04 H, Total Protein 4.9 L, Albumin 2.8 L, Globulin 2.1, Albumin/Globulin Ratio 1.3, Acetone Level Small 12/17/22 16:56: VBG pH 6.88 L, VBG pCO2 34.4 L, VBG pO2 56.8 H, VBG HCO3 6.3 L, VBG Total CO2 7.4 L, VBG O2 Saturation 73.8 H, VBG Base Excess -26.8 L 12/17/22 19:22: Urine Color Yellow, Urine Appearance Clear, Urine pH 5.5, Ur Specific [place] 1.020, Urine Protein 1+, Urine Glucose (UA) 3+, Urine Ketones 1+, Urine Blood Negative, Urine Nitrate Positive, Urine Bilirubin 1+ A, Urine Urobilinogen 0.2, Ur Leukocyte Esterase Negative, Urine RBC None, Urine WBC 5-10, Ur Squamous Epith Cells 3-5, Urine Bacteria Trace 12/17/22 19:46: Sodium 135 L, Potassium 6.1 H*, Chloride 96 L, Carbon Dioxide 8 L* D, Anion Gap 37.1 H, BUN 29 H, Creatinine 2.10 H, Estimated Creat Clear 23, Estimated GFR 23 L, Est GFR ( Amer) 28 L, Glucose 872 H*, Calcium 8.9, Total Bilirubin 1.2, AST 148 H D, ALT 97 H D, Alkaline Phosphatase 176 H, Total Protein 5.3 L, Albumin 3.1 L D, Globulin 2.2, Albumin/Globulin Ratio 1.4 12/17/22 19:52: VBG pH 7.10 L, VBG pCO2 25.3 L, VBG pO2 82.8 H, VBG HCO3 7.7 L, VBG Total CO2 8.5 L, VBG O2 Saturation 93.3 H, VBG Base Excess -21.9 L, Troponin I 0.08 H 12/17/22 21:36: Lactate 3.8 H 12/17/22 23:14: Random Glucose 809 H*, Lactate 2.6 H, Troponin I 0.16 H 12/18/22 00:10: ABG pH 7.37, ABG pCO2 30.3 L, ABG pO2 496.9 H, ABG HCO3 17.0 L, ABG Total CO2 17.9 L, ABG O2 Saturation 100, ABG Base Excess -8.4 L 12/18/22 01:26: Sodium 132 L, Potas
--- NOTE | 2022-12-18 16:35 | PC.NURSE ---
MD Gee notified about Acetone and closed gap. Also pt's creatinine level and decreased urine output. will be in later to round.
--- NOTE | 2022-12-18 17:40 | PC.NURSE ---
stated during the rounds to continue to infuse D5 NS w/ 20 K even though Insulin gtt is going to be DC.
--- NOTE | 2022-12-18 17:48 | PC.NURSE ---
Insulin gtt DC.20 units of lantus administered.
[2022-12-18 18:57] LABS: POC Glucose,Bedside 192 (70-110)
[2022-12-18 18:57] LABS: POC Glucose,Bedside 129 (70-110)
[2022-12-18 23:24] LABS: POC Glucose,Bedside 342 (70-110)
[2022-12-19] VITALS (30 sets, daily range): BP systolic 86–189; BP diastolic 40–121; PULSE 96–117; RESP 16–22; TEMP 37.4–37.8; O2SAT 93–100; BMI 24.8; BMI 26.7
[2022-12-19 05:09] LABS: POC Glucose,Bedside 250 (70-110)
--- NOTE | 2022-12-19 06:00 | XR_ITS ---
PROCEDURE INFORMATION: Exam: XR Chest Exam date and time: 12/19/2022 5:28 AM Age: 72 years old Clinical indication: Device placement; Ett placement (vent status); Additional info: Pneumonia mechanical ventilation TECHNIQUE: Imaging protocol: Radiologic exam of the chest. Views: 1 view. COMPARISON: CR XR CHEST PORTABLE 12/18/2022 12:52 PM FINDINGS: Tubes, catheters and devices: Endotracheal tube terminates approximately 4.9 cm above the rhea. Enteric tube passes into the stomach. Right upper extremity PICC terminates in the region of the distal SVC. Lungs: Faint right basilar airspace opacity. Pleural spaces: Unremarkable. No pleural effusion. No pneumothorax. Heart/Mediastinum: Unremarkable. No cardiomegaly. Bones/joints: Unremarkable. IMPRESSION: 1. Faint right basilar airspace opacity may reflect atelectasis versus aspiration or pneumonia. 2. Stable positioning of support apparatus.
[2022-12-19 06:03] LABS: Chloride 112 mmol/L (98-107)
[2022-12-19 06:04] LABS: Potassium 4.9 mmoL/L (3.5-5.1); Sodium 139 mmol/L (136-145)
[2022-12-19 06:06] LABS: Alanine Aminotransferase 539 U/L (12-78); Alkaline Phosphatase 128 U/L (38-126); Bilirubin,Total 0.5 mg/dl (0.2-1.3); Blood Urea Nitrogen 42 mg/dl (7-17); Creatinine Clearance Estimated 20 mL/min (50-200); Estimated Glomerular Filt Rate 17 ml/min (>60); GFR (African American) 21 ML/MIN (>60)
[2022-12-19 06:07] LABS: Albumin Level 2.2 g/dl (3.5-5.0); Anion Gap 11.9 mEq/L (5-15); Calcium 7.7 mg/dl (8.4-10.2); Carbon Dioxide 20 mmol/L (22.0-30.0); Globulin 2.2 g/dL (1.3-3.2); Glucose 252 mg/dl (74-100); Total Protein,Serum 4.4 g/dl (6.3-8.2)
[2022-12-19 06:12] LABS: Basophils # 0.1 K/mm3 (0-0.2); Basophils % 0.3 % (0.1-2.0); Eosinophils # 0.4 K/mm3 (0.0-0.4); Eosinophils % 2.2 % (0.1-12.0); Hematocrit 35.7 % (37.0-47.0); Hemoglobin 11.3 g/dL (12.2-16.2); Lymphocytes % 10.7 % (10-50); Mean Corpuscular HGB Conc 31.6 g/dL (31.8-35.4); Mean Corpuscular Hemoglobin 31.2 pg (27.0-31.2); Mean Platelet Volume 9.7 fl (7.4-10.4); Monocytes # 0.9 K/mm3 (0.1-1.0); Monocytes % 4.7 % (1.7-9.3); Neutrophils # 15.3 K/mm3 (1.8-7.8); Neutrophils % 82.1 % (37.0-80.0); Platelet Count 162 K/mm3 (142-424); Red Cell Distribution Width 14.9 % (11.5-17.5); White Blood Count 18.7 K/mm3 (4.8-10.8)
--- NOTE | 2022-12-19 06:15 | PC.NURSE ---
PT VSS throughout shift, maintaining BP MAP greater than 65 on levo drip. Patient did appear restless and uncomfortable so sedation drips were titrated to keep RASS -2. Turned Q2H and oral care completed Q2H. Fentanyl drip at 25mcg/hr, Propofol drip at 20mcg/kg/min, Levophed at 6mcg/min.
[2022-12-19 06:23] LABS: MANUAL DIFFERENTIAL MANUAL DIFFERENTIAL (MANUAL DIFF)
[2022-12-19 06:24] LABS: Aspartate Amino Transferase 768 U/L (14-36)
[2022-12-19 06:59] LABS: ABG Base Excess -10.8 mmol/L (-2.4-2.3); ABG HCO3 16.7 mmhg (22.0-26.0); ABG Oxygen Saturation 98 % (90-100); ABG PCO2 41.1 mmhg (35.0-45.0); ABG PH 7.23 mmol/L (7.35-7.45); ABG PO2 135.5 mmhg (80-100)
[2022-12-19 07:02] LABS: Oxygen 40 %; PEEP 5; Source L BRACHIAL; Tidal Volume 420; Vent Rate 16
--- NOTE | 2022-12-19 07:52 | EXP.ACUTE.PN ---
Subjective *Date: 12/19/22 *Time: 08:38 Interval history: Patient remains on vent with tidal volume of 420 FiO2 at 40%, respiratory rate at 16 assist control, and 5 of PEEP. ABGs this a.m. showed metabolic acidosis. Nurses states she is responding. She remains on fentanyl and propofol drips which they are weaning. Levophed drip is also being weaned. Insulin drip is off. She has had decrease in urinary output. She had a PICC line placed yesterday.White blood cell count has decreased to 18,700 with a hemoglobin of 11.3 and hematocrit of 35.7. Acetone was negative yesterday. Blood chemistries show BUN of 42 and creatinine of 2.70. Liver function studies are more elevated with SGOT of 768 and SGPT of 539, alkaline phosphatase of 128. Cultures results are pending.Chest x-ray this morning shows faint right basilar airspace opacity possibly reflecting atelectasis versus aspiration or pneumonia. Stable positioning of support apparatus. Echocardiogram results are pending Medical Exam Vital signs and Labs for Last 24 Hours: Vital Signs Temp Pulse Pulse Resp BP BP BP 12/19/22 07:00 101 H 16 110/44 L 12/19/22 07:00 12/19/22 06:20 17 12/19/22 06:00 102 H 16 115/48 L 12/19/22 04:00 103 H 12/19/22 05:00 101 H 16 115/47 L 12/19/22 05:00 12/19/22 04:00 12/19/22 04:00 16 12/19/22 03:00 12/19/22 04:00 99.9 F H 12/19/22 03:56 17 12/19/22 02:00 105 H 16 106/45 L 12/19/22 02:06 19 12/19/22 01:00 100 F H 106 H 16 115/45 L 12/19/22 01:00 12/19/22 00:00 105 H 12/19/22 00:00 12/19/22 00:00 107 H 18 12/19/22 00:00 100.0 F H 12/18/22 23:51 17 12/18/22 23:00 100 H 16 122/53 L 12/18/22 23:00 12/18/22 22:00 102 H 20 118/51 L 12/18/22 20:00 100 H 12/18/22 21:46 19 12/18/22 20:00 99.8 F H 101 H 16 108/48 L 12/18/22 21:00 99.9 F H 100 H 16 108/43 L 12/18/22 21:00 12/18/22 20:00 12/18/22 20:00 104 H 16 12/18/22 20:00 99.7 F H 12/18/22 19:22 18 12/18/22 18:48 99.7 F H 99 H 16 120/45 L 12/18/22 18:37 12/18/22 16:00 90 12/18/22 18:00 99.3 F 117 H 16 146/48 H 12/18/22 16:00 12/18/22 12:00 90 12/18/22 17:00 99.1 F 96 H 16 123/45 L 12/18/22 17:00 12/18/22 16:00 12/18/22 16:00 99.3 F 16 122/47 L 12/18/22 15:00 99.7 F H 94 H 16 118/44 L 12/18/22 15:00 12/18/22 08:00 100 H 12/18/22 11:00 100 H 16 103/36 L 12/18/22 10:00 100.4 F H 98 H 16 97/38 L 12/18/22 09:00 100.4 F H 98 H 16 90/65 L 93/43 L 12/18/22 14:00 94 H 16 109/45 L 12/18/22 13:00 99.2 F 95 H 16 102/43 L 12/18/22 13:10 18 12/18/22 09:50 17 12/18/22 12:59 12/18/22 12:00 16 12/18/22 12:00 12/18/22 12:00 99.9 F H 96 H 16 104/44 L 12/18/22 11:00 12/18/22 09:00 12/18/22 08:41 100.6 F H 12/18/22 08:00 12/18/22 08:00 100.6 F H 98 H 16 93/68 L 98/37 L Pulse Ox O2 Del Method FiO2 12/19/22 07:00 100 Mechanical Ventilation 40 12/19/22 07:00 Mechanical Ventilation 12/19/22 06:20 98 40 12/19/22 06:00 100 Mechanical Ventilation 40 12/19/22 04:00 12/19/22 05:00 99 Mechanical Ventilation 40 12/19/22 05:00 Mechanical Ventilation 12/19/22 04:00 40 12/19/22 04:00 99 Mechanical Ventilation 40 12/19/22 03:00 Mechanical Ventilation 12/19/22 04:00 12/19/22 03:56 99 12/19/22 02:00 98 Mechanical Ventilation 40 12/19/22 02:06 98 12/19/22 01:00 99 Mechanical Ventilation 40 12/19/22 01:00 Mechanical Ventilation 12/19/22 00:00 12/19/22 00:00 40 12/19/22 00:00 99 Mechanical Ventilation 40 12/19/22 00:00 12/18/22 23:51 99 12/18/22 23:00 99 Mechanical Ventil
[2022-12-19 08:16] LABS: Lymphocytes % 14 % (10-50); Monocytes % 4 % (2-9); Neutrophils % 81 % (42-76); Total Cells Counted 100
[2022-12-19 08:17] LABS: Platelet Estimate Normal; RBC Morphology Normal
--- NOTE | 2022-12-19 09:25 | EXP.ACUTE.PN ---
Subjective *Date: 12/19/22 *Time: 09:25 Medical Exam Vital signs and Labs for Last 24 Hours: Vital Signs Temp Pulse Pulse Resp BP BP Pulse Ox 12/19/22 07:00 101 H 16 110/44 L 100 12/19/22 07:00 12/19/22 06:20 17 98 12/19/22 06:00 102 H 16 115/48 L 100 12/19/22 04:00 103 H 12/19/22 05:00 101 H 16 115/47 L 99 12/19/22 05:00 12/19/22 04:00 12/19/22 04:00 16 99 12/19/22 03:00 12/19/22 04:00 99.9 F H 12/19/22 03:56 17 99 12/19/22 02:00 105 H 16 106/45 L 98 12/19/22 02:06 19 98 12/19/22 01:00 100 F H 106 H 16 115/45 L 99 12/19/22 01:00 12/19/22 00:00 105 H 12/19/22 00:00 12/19/22 00:00 107 H 18 99 12/19/22 00:00 100.0 F H 12/18/22 23:51 17 99 12/18/22 23:00 100 H 16 122/53 L 99 12/18/22 23:00 12/18/22 22:00 102 H 20 118/51 L 99 12/18/22 20:00 100 H 12/18/22 21:46 19 98 12/18/22 20:00 99.8 F H 101 H 16 108/48 L 99 12/18/22 21:00 99.9 F H 100 H 16 108/43 L 98 12/18/22 21:00 12/18/22 20:00 12/18/22 20:00 104 H 16 98 12/18/22 20:00 99.7 F H 12/18/22 19:22 18 99 12/18/22 18:48 99.7 F H 99 H 16 120/45 L 99 12/18/22 18:37 12/18/22 16:00 90 12/18/22 18:00 99.3 F 117 H 16 146/48 H 98 12/18/22 16:00 12/18/22 12:00 90 12/18/22 17:00 99.1 F 96 H 16 123/45 L 100 12/18/22 17:00 12/18/22 16:00 12/18/22 16:00 99.3 F 16 122/47 L 100 12/18/22 15:00 99.7 F H 94 H 16 118/44 L 98 12/18/22 15:00 12/18/22 11:00 100 H 16 103/36 L 100 12/18/22 10:00 100.4 F H 98 H 16 97/38 L 100 12/18/22 14:00 94 H 16 109/45 L 98 12/18/22 13:00 99.2 F 95 H 16 102/43 L 99 12/18/22 13:10 18 100 12/18/22 09:50 17 100 12/18/22 12:59 12/18/22 12:00 16 12/18/22 12:00 12/18/22 12:00 99.9 F H 96 H 16 104/44 L 100 12/18/22 11:00 O2 Del Method FiO2 12/19/22 07:00 Mechanical Ventilation 40 12/19/22 07:00 Mechanical Ventilation 12/19/22 06:20 40 12/19/22 06:00 Mechanical Ventilation 40 12/19/22 04:00 12/19/22 05:00 Mechanical Ventilation 40 12/19/22 05:00 Mechanical Ventilation 12/19/22 04:00 40 12/19/22 04:00 Mechanical Ventilation 40 12/19/22 03:00 Mechanical Ventilation 12/19/22 04:00 12/19/22 03:56 12/19/22 02:00 Mechanical Ventilation 40 12/19/22 02:06 12/19/22 01:00 Mechanical Ventilation 40 12/19/22 01:00 Mechanical Ventilation 12/19/22 00:00 12/19/22 00:00 40 12/19/22 00:00 Mechanical Ventilation 40 12/19/22 00:00 12/18/22 23:51 12/18/22 23:00 Mechanical Ventilation 40 12/18/22 23:00 Mechanical Ventilation 12/18/22 22:00 Mechanical Ventilation 40 12/18/22 20:00 12/18/22 21:46 12/18/22 20:00 Mechanical Ventilation 40 12/18/22 21:00 Mechanical Ventilation 40 12/18/22 21:00 Mechanical Ventilation 12/18/22 20:00 40 12/18/22 20:00 Mechanical Ventilation 40 12/18/22 20:00 12/18/22 19:22 12/18/22 18:48 Mechanical Ventilation 40 12/18/22 18:37 Mechanical Ventilation 12/18/22 16:00 12/18/22 18:00 Mechanical Ventilation 40 12/18/22 16:00 40 12/18/22 12:00 12/18/22 17:00 Mechanical Ventilation 40 12/18/22 17:00 Mechanical Ventilation 12/18/22 16:00 Mechanical Ventilation 40 12/18/22 16:00 Mechanical Ventilation 40 12/18/22 15:00 Mechanical Ventilation 40 12/18/22 15:00 Mechanical Ventilation 12/18/22 11:00 Mechanical Ventilation 40 12/18/22 10:00 Mechanical Ventilation 40 12/18/22 14:00 Mechanical Ventilation 40 12/18/22 13:00 Mechanical Ventilation 40 12/18/22 13:10 40 12/18/22 09:50 40 12/18/22 12:59 Mechanical Ventilation 12/18/22 12:00 40 12/18/22 12:00 Mechanical Ventilation 40 12/18/22 12
--- NOTE | 2022-12-19 09:35 | PC.NURSE ---
sedation stopped per verbal order from MD Hensley for SBT
--- NOTE | 2022-12-19 10:30 | PC.NURSE ---
bp 130/39, decreased levophed drip to 4mcg/min
--- NOTE | 2022-12-19 10:34 | EXP.CARD.PN ---
Subjective Subjective Date: 12/19/22 Time: 08:30 Principal diagnosis: DKA and septic shock Interval history: Patient remains intubated and sedated with propofol fentanyl. Currently requiring Levophed. Morning labs reviewed. little urine output noted 25-30 mL an hour. Primary service is increasing fluids today. Official echo read is pending. Exam Data for Last 24 hours Vital signs and Labs for Last 24 Hours: Temp Pulse Resp BP Pulse Ox O2 Del Method O2 Flow Rate 99.3 F 101 H 22 86/71 L 100 Mechanical Ventilation 100 12/19/22 10:00 12/19/22 10:00 12/19/22 10:00 12/19/22 10:00 12/19/22 10:00 12/19/22 10:00 12/18/22 04:00 FiO2 35 12/19/22 10:00 Laboratory Results - last 24 hr 12/18/22 06:40: WBC 32.7 H* D, RBC 3.87 L, Hgb 12.1 L D, Hct 38.5, MCV 99.5 H, MCH 31.3 H, MCHC 31.4 L, RDW 14.6, Plt Count 251, MPV 10.2, Neut % (Auto) 83.9 H, Lymph % (Auto) 10.0, [place] % (Auto) 5.5, Eos % (Auto) 0.4, Baso % (Auto) 0.3, Neut # (Auto) 27.4 H, Lymph # (Auto) 3.2, [place] # (Auto) 1.8 H, Eos # (Auto) 0.1, Baso # (Auto) 0.1, Total Counted 100, Neutrophils % (Manual) 77 H, Lymphocytes % (Manual) 15, Monocytes % (Manual) 8, Platelet Estimate Normal, RBC Morphology Normal 12/18/22 10:12: POC Glucose 154 H 12/18/22 11:25: POC Glucose 168 H 12/18/22 11:32: Sodium 138, Potassium 4.4, Chloride 106, Carbon Dioxide 23, Anion Gap 13.4, BUN 41 H, Creatinine 2.20 H, Estimated Creat Clear 23, Estimated GFR 22 L, Est GFR ( Amer) 27 L, Glucose 103 H D, Calcium 8.0 L, Acetone Level None detected 12/18/22 12:50: POC Glucose 107 12/18/22 15:00: Sodium 140, Potassium 4.5, Chloride 107, Carbon Dioxide 25, Anion Gap 12.5, BUN 43 H, Creatinine 2.30 H, Estimated Creat Clear 22, Estimated GFR 21 L, Est GFR ( Amer) 25 L, Glucose 76 D, Calcium 7.8 L, Vancomycin Trough 11.2 H 12/18/22 15:05: POC Glucose 82 12/18/22 16:01: POC Glucose 84 12/18/22 17:38: POC Glucose 129 H 12/18/22 18:41: POC Glucose 192 H 12/18/22 23:18: POC Glucose 342 H* 12/19/22 05:02: POC Glucose 250 H 12/19/22 05:30: WBC 18.7 H D, RBC 3.60 L, Hgb 11.3 L, Hct 35.7 L, MCV 99.0, MCH 31.2, MCHC 31.6 L, RDW 14.9, Plt Count 162 D, MPV 9.7, Neut % (Auto) 82.1 H, Lymph % (Auto) 10.7, [place] % (Auto) 4.7, Eos % (Auto) 2.2, Baso % (Auto) 0.3, Neut # (Auto) 15.3 H, Lymph # (Auto) 2.0, [place] # (Auto) 0.9, Eos # (Auto) 0.4, Baso # (Auto) 0.1, Total Counted 100, Neutrophils % (Manual) 81 H, Band Neutrophils % 1.0, Lymphocytes % (Manual) 14, Monocytes % (Manual) 4, Platelet Estimate Normal, RBC Morphology Normal, Sodium 139, Potassium 4.9, Chloride 112 H, Carbon Dioxide 20 L, Anion Gap 11.9, BUN 42 H, Creatinine 2.70 H, Estimated Creat Clear 20, Estimated GFR 17 L*, Est GFR ( Amer) 21 L, Glucose 252 H D, Calcium 7.7 L, Total Bilirubin 0.5, AST 768 H* D, ALT 539 H*, Alkaline Phosphatase 128 H, Total Protein 4.4 L, Albumin 2.2 L D, Globulin 2.2, Albumin/Globulin Ratio 1.0 L 12/19/22 06:00: Specimen Source L brachial, O2 % 40, ABG pH 7.23 L*, ABG pCO2 41.1, ABG pO2 135.5 H, ABG HCO3 16.7 L, ABG Total CO2 18.0 L, ABG O2 Saturation 98, ABG Base Excess -10.8 L, Vent Rate 16, Tidal Volume 420, PEEP 5 I & O for Last 24 hours: Intake & Output 12/16/22 12/17/22 12/18/22 12/19/22 23:59 23:59 23:59 23:59 Intake Total 19.977 / 19.977 3871 / 4335 1247 / 1247 Output Total 555 / 585 145 / 145 Balance 19.977 / 19.977 3316 / 3750 1102 / 1102 Weight 130 lb 135 lb 135 lb 0.001 oz Microbiology Reports for the Last 24 Hours: Microbiology 12/17/22 19:22 Urine,Catheterized Urine Culture - Preliminary NO GROWTH AFTER 24 HOURS 12/18/22 06:20 Sputum - Endotracheal Tube Aspirate Gram Stain - Final Constitutional Comments: Intubated and sedated *Routine Respiratory Exam Respiratory: Present patient mechanically ventilated and symmetric chest movement *Routine Cardiovascular Exam Cardiovascular: Present Normal S1, Normal S2 and tachycardia *Routine Extremities Exam Extre
--- NOTE | 2022-12-19 10:45 | PC.NURSE ---
bp 132/47, decreased levophed drip to 2mcg/min
--- NOTE | 2022-12-19 11:00 | PC.NURSE ---
bp 138/45, held levophed drip at this time
--- NOTE | 2022-12-19 11:30 | PC.NURSE ---
Sedation restarted. RT reports failed SBT Fent gtt at 25mcg. Prop gtt is 20mcg
[2022-12-19 12:19] LABS: POC Glucose,Bedside 286 (70-110)
--- NOTE | 2022-12-19 13:01 | DIET.NUTRFU ---
Addendum entered by Nory Glez RD, LD 12/20/22 09:34: Spoke nursing and provider today, patient is doing worse and will not be performing SBT today. She is tolerating 20ml/hr of TF, Pul[facility]care with goal rate at 40ml/hr well propofol running. Received 57ml of Propofol yesterday. She also received dextrose biolus on 12/18 and 12/19. Urine output is only 460ml,holding fluid. Provider indicated she is third spacing, up 7# from 12/18 at 73kg. Her renal labs are worse at BUN 43 and Cr 3.0. Liver enzymes are also worse 490/486 and albumin 2.0L. Potassium is also elevated at 6.1H. Glucose elevated at 248H, insulin in place. Will continue to monitor I/O's, TF tolerance and POC Addendum entered by Nory Glez RD, LD 12/19/22 13:43: Provider contacted this Rd to initiate TF via OG tube already in place. Patient failed her SBT and sedation was turned back on. With propofol still running goal rate would be at 40ml/hr, will put order in to start at 10ml/hr and increase every 4 hours as tolerated to goal rate of 40ml/hr. NaCl in place for hydration, will only provide minimal flushes of 50ml TID Original Note: start TF if unable to extubate, nursing anticipates patient will extubate tomorrow, she is receiving dextrose IVF contributing minimal calories. Nutritional needs are 1650kcal and 66-72gm protein and 1980ml/day, pulmocare at goal of 45ml/hr to provide 1620cal, 67.6gm protein and 858ml free water. propofol providing on average of 2 days is 85ml and calories are 94kcal. Will continue to monitor respiratory status. Once extubated KNIFE CUTTER will eval.
--- NOTE | 2022-12-19 15:41 | US_ITS ---
PROCEDURE INFORMATION: Exam: US Abdomen, Limited; Right Upper Quadrant Exam date and time: 12/19/2022 4:17 PM Age: 72 years old Clinical indication: Fever; Prior surgery; Surgery date: 6+ months; Surgery type: Gb-- appendix and hyst; Additional info: Sepsis TECHNIQUE: Imaging protocol: Real time ultrasound of the abdomen with image documentation. Limited exam focused on the right upper quadrant. COMPARISON: CT ANGIO CHEST PE PROTOCOL 12/17/2022 8:40 PM FINDINGS: Pleural spaces: There is a partially visualized small right pleural effusion. Liver: There are few small calcifications throughout the liver. The liver demonstrates a mildly heterogeneous appearance which is nonspecific but could reflect underlying hepatitis. Gallbladder: The patient is status post cholecystectomy. Biliary ducts: Normal. No stones. No dilation. Pancreas: Visualized pancreas is unremarkable. Right kidney: Normal. No mass. No hydronephrosis. Intraperitoneal space: There is a small volume of upper abdominal ascites. IMPRESSION: 1. Stable small volume ascites. Unremarkable appearance of the biliary tree in a post cholecystectomy state. 2. The liver demonstrates a mildly heterogeneous appearance which is nonspecific but could reflect underlying hepatitis.
[2022-12-19 15:48] LABS: Chloride 118 mmol/L (98-107); Potassium 5.1 mmoL/L (3.5-5.1); Sodium 142 mmol/L (136-145)
[2022-12-19 15:51] LABS: Alanine Aminotransferase 465 U/L (12-78); Albumin Level 1.9 g/dl (3.5-5.0); Albumin/Globulin Ratio 0.9 (1.1-1.8); Alkaline Phosphatase 115 U/L (38-126); Anion Gap 10.1 mEq/L (5-15); Aspartate Amino Transferase 595 U/L (14-36); Bilirubin,Total 0.3 mg/dl (0.2-1.3); Blood Urea Nitrogen 42 mg/dl (7-17); Carbon Dioxide 19 mmol/L (22.0-30.0); Creatinine Clearance Estimated 19 mL/min (50-200); Estimated Glomerular Filt Rate 17 ml/min (>60); GFR (African American) 20 ML/MIN (>60); Globulin 2.2 g/dL (1.3-3.2); Total Protein,Serum 4.1 g/dl (6.3-8.2)
[2022-12-19 15:52] LABS: Calcium 7.3 mg/dl (8.4-10.2); Glucose 117 mg/dl (74-100)
[2022-12-19 16:04] LABS: Lipase 84 U/L (23-300)
[2022-12-19 16:10] LABS: Vancomycin,Random 18.2 ug/ml
[2022-12-19 16:40] LABS: POC Glucose,Bedside 132 (70-110)
[2022-12-19 23:19] LABS: POC Glucose,Bedside 400 (70-110)
[2022-12-20] VITALS (34 sets, daily range): BP systolic 95–140; BP diastolic 38–59; PULSE 83–102; RESP 16; TEMP 36.9–37.7; O2SAT 98–100; BMI 29.6
[2022-12-20 05:13] LABS: POC Glucose,Bedside 216 (70-110)
--- NOTE | 2022-12-20 06:00 | XR_ITS ---
PROCEDURE INFORMATION: Exam: XR Chest Exam date and time: 12/20/2022 5:22 AM Age: 72 years old Clinical indication: Device placement; Ett placement (vent status); Additional info: Pneumonia mechanical ventilation TECHNIQUE: Imaging protocol: Radiologic exam of the chest. Views: 1 view. COMPARISON: CR XR CHEST PORTABLE 12/19/2022 5:28 AM FINDINGS: Tubes, catheters and devices: An endotracheal catheter is noted with its tip projected over the thoracic inlet. An enteric catheter extends to the abdomen, the tip not imaged. A right-sided peripherally inserted central catheter is noted with its tip projected over the expected course of the superior vena cava. Lungs: There is hazy opacity at the lung bases especially on the left which may represent effusion and/or parenchymal disease. Pleural spaces: Unremarkable. No pleural effusion. No pneumothorax. Heart/Mediastinum: Unremarkable. No cardiomegaly. Bones/joints: Unremarkable. IMPRESSION: Support lines and catheters in place as described. Hazy basilar opacities [id number].
[2022-12-20 06:07] LABS: Basophils # 0.1 K/mm3 (0-0.2); Basophils % 0.3 % (0.1-2.0); Eosinophils # 0.4 K/mm3 (0.0-0.4); Eosinophils % 2.6 % (0.1-12.0); Hematocrit 37.1 % (37.0-47.0); Hemoglobin 11.3 g/dL (12.2-16.2); Lymphocytes # 1.4 K/mm3 (0.7-4.5); Lymphocytes % 8.7 % (10-50); Mean Corpuscular HGB Conc 30.4 g/dL (31.8-35.4); Mean Corpuscular Hemoglobin 31.2 pg (27.0-31.2); Mean Corpuscular Volume 102.8 fl (81-99); Mean Platelet Volume 10.2 fl (7.4-10.4); Monocytes % 6.3 % (1.7-9.3); Neutrophils % 82.1 % (37.0-80.0); Platelet Count 128 K/mm3 (142-424); Red Blood Count 3.61 M/mm3 (4.20-5.40); Red Cell Distribution Width 15.2 % (11.5-17.5); White Blood Count 15.8 K/mm3 (4.8-10.8)
[2022-12-20 06:19] LABS: Chloride 120 mmol/L (98-107); Sodium 143 mmol/L (136-145)
[2022-12-20 06:21] LABS: Alanine Aminotransferase 486 U/L (12-78); Aspartate Amino Transferase 490 U/L (14-36); Blood Urea Nitrogen 43 mg/dl (7-17); Creatinine Clearance Estimated 20 mL/min (50-200); Estimated Glomerular Filt Rate 15 ml/min (>60); GFR (African American) 19 ML/MIN (>60); Lipase 69 U/L (23-300)
[2022-12-20 06:22] LABS: Albumin Level 2.1 g/dl (3.5-5.0); Albumin/Globulin Ratio 0.9 (1.1-1.8); Alkaline Phosphatase 157 U/L (38-126); Anion Gap 15.1 mEq/L (5-15); Bilirubin,Total 0.4 mg/dl (0.2-1.3); Calcium 7.9 mg/dl (8.4-10.2); Carbon Dioxide 14 mmol/L (22.0-30.0); Globulin 2.4 g/dL (1.3-3.2); Glucose 248 mg/dl (74-100); Total Protein,Serum 4.5 g/dl (6.3-8.2)
[2022-12-20 06:25] LABS: MANUAL DIFFERENTIAL MANUAL DIFFERENTIAL (MANUAL DIFF)
[2022-12-20 06:35] LABS: Potassium 6.1 mmoL/L (3.5-5.1)
[2022-12-20 06:48] LABS: ABG Base Excess -15.7 mmol/L (-2.4-2.3); ABG HCO3 12.8 mmhg (22.0-26.0); ABG Oxygen Saturation 99 % (90-100); ABG PCO2 35.7 mmhg (35.0-45.0); ABG PO2 138.1 mmhg (80-100); ABG TCO2 13.9 mmhg (23-27)
[2022-12-20 06:50] LABS: Allen's Test ACCEPTABLE; Oxygen 35 %; PEEP 5; Source R RADIAL; Tidal Volume 420; Vent Rate 16
[2022-12-20 06:54] LABS: ABG PH 7.17 mmol/L (7.35-7.45)
[2022-12-20 07:40] LABS: Eosinophils % 1 % (0-3); Lymphocytes % 10 % (10-50); Monocytes % 2 % (2-9); Neutrophils % 87 % (42-76); Total Cells Counted 100
[2022-12-20 07:41] LABS: Macrocytosis 1+
[2022-12-20 07:42] LABS: Platelet Estimate Slight Decrease
--- NOTE | 2022-12-20 08:21 | EXP.ACUTE.PN ---
Subjective *Date: 12/20/22 *Time: 09:08 Interval history: Patient is still sedated on the vent. Still on propofol, fentanyl, calcium gluconate, and Levophed. Blood pressure is low this morning and she is getting a bolus of normal saline. White blood cell count has gone down to 15.8. Renal function has worsened. Creatinine is up to 3 and GFR is 15. Calcium is still low at 7.9. Potassium is elevated at 6.1. Liver function tests are still elevated. Chest x-ray from this morning shows hazy basilar opacities left greater than right. Medical Exam Vital signs and Labs for Last 24 Hours: Vital Signs Temp Pulse Pulse Resp BP Pulse Ox O2 Del Method 12/20/22 07:00 98.4 F 94 H 16 108/46 L 100 Mechanical Ventilation 12/20/22 07:00 Mechanical Ventilation 12/20/22 06:00 87 16 108/48 L 100 Mechanical Ventilation 12/20/22 05:00 83 16 95/42 L 100 Mechanical Ventilation 12/20/22 05:00 Mechanical Ventilation 12/20/22 04:00 91 H 12/20/22 04:00 98.6 F 12/20/22 04:00 99.7 F H 87 16 96/46 L 100 Mechanical Ventilation 12/20/22 04:00 100 Mechanical Ventilation 12/20/22 04:08 16 99 12/20/22 03:00 91 H 16 129/54 L 100 Mechanical Ventilation 12/20/22 03:00 Mechanical Ventilation 12/20/22 02:34 16 99 12/20/22 02:00 92 H 16 102/45 L 99 Mechanical Ventilation 12/20/22 01:00 102 H 16 100/38 L 98 Mechanical Ventilation 12/20/22 01:00 Mechanical Ventilation 12/20/22 00:00 99.7 F H 12/20/22 00:00 100 H 12/20/22 00:00 102 H 16 98 Mechanical Ventilation 12/20/22 00:00 99.9 F H 102 H 16 108/49 L 99 Mechanical Ventilation 12/20/22 00:00 12/19/22 23:58 98 12/19/22 23:00 99 H 16 114/50 L 98 Mechanical Ventilation 12/19/22 23:00 Mechanical Ventilation 12/19/22 20:00 105 H 12/19/22 22:00 16 98 12/19/22 22:00 100 H 16 114/45 L 99 Mechanical Ventilation 12/19/22 21:00 99.9 F H 100 H 16 101/42 L 99 Mechanical Ventilation 12/19/22 21:00 Mechanical Ventilation 12/19/22 20:00 96 Mechanical Ventilation 12/19/22 20:00 99.9 F H 12/19/22 20:05 16 98 12/19/22 18:40 104 H 16 113/47 L 100 Mechanical Ventilation 12/19/22 18:39 Mechanical Ventilation 12/19/22 18:00 99.9 F H 100 H 16 99/51 L 99 Mechanical Ventilation 12/19/22 18:28 16 100 12/19/22 16:00 99 H 12/19/22 17:00 Mechanical Ventilation 12/19/22 17:00 96 H 16 95/44 L 95 Mechanical Ventilation 12/19/22 16:00 97 Mechanical Ventilation 12/19/22 16:00 99.9 F H 99 H 16 96/40 L 97 Mechanical Ventilation 12/19/22 15:00 103 H 16 98/42 L 97 Mechanical Ventilation 12/19/22 14:00 103 H 16 104/43 L 97 Mechanical Ventilation 12/19/22 15:00 Mechanical Ventilation 12/19/22 12:00 100 H 12/19/22 13:00 117 H 16 189/121 H 93 L Mechanical Ventilation 12/19/22 11:30 20 99 12/19/22 12:49 Mechanical Ventilation 12/19/22 12:00 97 Mechanical Ventilation 12/19/22 12:00 99.5 F 102 H 16 119/47 L 100 Mechanical Ventilation 12/19/22 11:00 108 H 16 138/45 L 100 Mechanical Ventilation 12/19/22 11:00 Mechanical Ventilation 12/19/22 09:00 Mechanical Ventilation 12/19/22 10:00 99.3 F 101 H 22 86/71 L 100 Mechanical Ventilation 12/19/22 09:00 96 H 16 112/49 L 100 Mechanical Ventilation FiO2 12/20/22 07:00 35 12/20/22 07:00 12/20/22 06:00 35 12/20/22 05:00 35 12/20/22 05:00 12/20/22 04:00 12/20/22 04:00 12/20/22 04:00 35 12/20/22 04:00 35 12/20/22 04:08 12/20/22 03:00 60 12/20/22 03:00 12/20/22 02:34 12/20/22 02:00 35 12/20/22 01:00 35 12/20/22 01:00 12/20/22 00:00 12/20/22 00:00 12/20/22 00:00 35 12/20/22 00:00 35 12/20/22 00:00 35 12/19/22 23:58 12/19/22 23:00 35 12/19/22 23:00 12/19/22 20:00 12/19/22 22:0
--- NOTE | 2022-12-20 09:58 | EXP.PULM.CON ---
History of Present Illness History of present illness: Ms. Armenta is a 72-year-old female history of diabetes presented to the hospital with shock and DKA and worsening respiratory failure needing intubation mechanical ventilatory support. Patient has been managed so far for DKA and possible shock with broad-spectrum antibiotics and vasopressor support. [facility] Disclaimer: The information contained in this section may have been updated after the patient was seen, as this information can be updated by other users. Medical History (Updated 12/20/22 @ 10:48 by Elvira Cárdenas MD) Acute respiratory failure with hypoxia COPD (chronic obstructive pulmonary disease) Coronary artery disease Degenerative disc disease, cervical Disorder of neck Hypertension Hypothyroid On mechanically assisted ventilation Type 1 diabetes Umbilical hernia Surgical History History of appendectomy History of cholecystectomy History of hysterectomy History of tonsillectomy Family History (Updated 11/20/22 @ 13:52 by Kaila Trujillo RN) Other Diabetes Social History (Updated 12/18/22 @ 08:23 by Janice Gillis APRN) Smoking Status: Former smoker second hand exposure: No alcohol intake: current substance use type: denies use current occupational status: retired Travel in the last 8 weeks: None household members: none housing: house marital status: current occupational exposures/hazards: No caffeine: Yes Review of Systems Review of Systems Review of systems:: unable to obtain Review of systems (narrative): Intubated and sedated *Neurologic Neurologic: Reports other (Unconscious) Pulmonology Exam Inpatient Vital signs and Labs for Last 24 Hours: Temp Pulse Resp BP Pulse Ox O2 Del Method O2 Flow Rate 98.4 F 90 16 101/50 L 100 Mechanical Ventilation 100 12/20/22 07:00 12/20/22 09:00 12/20/22 09:00 12/20/22 09:00 12/20/22 09:00 12/20/22 09:00 12/18/22 04:00 FiO2 35 12/20/22 09:00 Laboratory Results - last 24 hr 12/19/22 12:09: POC Glucose 286 H 12/19/22 15:30: Sodium 142, Potassium 5.1, Chloride 118 H, Carbon Dioxide 19 L, Anion Gap 10.1, BUN 42 H, Creatinine 2.80 H, Estimated Creat Clear 19, Estimated GFR 17 L*, Est GFR ( Amer) 20 L, Glucose 117 H D, Calcium 7.3 L, Total Bilirubin 0.3, AST 595 H*, ALT 465 H*, Alkaline Phosphatase 115, Total Protein 4.1 L, Albumin 1.9 L D, Globulin 2.2, Albumin/Globulin Ratio 0.9 L, Lipase 84, Random Vancomycin 18.2 12/19/22 16:30: POC Glucose 132 H 12/19/22 23:12: POC Glucose 400 H* 12/20/22 05:04: POC Glucose 216 H 12/20/22 05:30: WBC 15.8 H, RBC 3.61 L, Hgb 11.3 L, Hct 37.1, MCV 102.8 H, MCH 31.2, MCHC 30.4 L, RDW 15.2, Plt Count 128 L, MPV 10.2, Neut % (Auto) 82.1 H, Lymph % (Auto) 8.7 L, [place] % (Auto) 6.3, Eos % (Auto) 2.6, Baso % (Auto) 0.3, Neut # (Auto) 13.0 H, Lymph # (Auto) 1.4, [place] # (Auto) 1.0, Eos # (Auto) 0.4, Baso # (Auto) 0.1, Total Counted 100, Neutrophils % (Manual) 87 H, Lymphocytes % (Manual) 10, Monocytes % (Manual) 2, Eosinophils % (Manual) 1, Platelet Estimate Slight decrease, Macrocytosis 1+, Sodium 143, Potassium 6.1 H*, Chloride 120 H, Carbon Dioxide 14 L, Anion Gap 15.1 H, BUN 43 H, Creatinine 3.00 H, Estimated Creat Clear 20, Estimated GFR 15 L*, Est GFR ( Amer) 19 L*, Glucose 248 H D, Calcium 7.9 L, Total Bilirubin 0.4, AST 490 H*, ALT 486 H*, Alkaline Phosphatase 157 H, Total Protein 4.5 L, Albumin 2.1 L D, Globulin 2.4, Albumin/Globulin Ratio 0.9 L, Lipase 69 12/20/22 06:00: Specimen Source R radial, O2 % 35, ABG pH 7.17 L*, ABG pCO2 35.7, ABG pO2 138.1 H, ABG HCO3 12.8 L, ABG Total CO2 13.9 L, ABG O2 Saturation 99, ABG Base Excess -15.7 L, Khurram Test Acceptable, Vent Rate 16, Tidal Volume 420, PEEP 5 I & O for Labs for Last 24 Hours: Intake & Output 12/17/22 12/18/22 12/19/22 12/20/22 23:59 23:59 23:59 23:59 Intake Total 19.977 / 19.977 2792 / 5202 7
--- NOTE | 2022-12-20 11:06 | EXP.CARD.PN ---
Subjective Subjective Date: 12/20/22 Time: 08:30 Principal diagnosis: DKA and septic shock Interval history: Patient is still sedated on the vent. Morning labs reviewed. Exam Data for Last 24 hours Vital signs and Labs for Last 24 Hours: Temp Pulse Resp BP Pulse Ox O2 Del Method O2 Flow Rate 98.4 F 90 16 101/50 L 100 Mechanical Ventilation 100 12/20/22 07:00 12/20/22 09:00 12/20/22 09:00 12/20/22 09:00 12/20/22 09:00 12/20/22 09:00 12/18/22 04:00 FiO2 35 12/20/22 09:00 Laboratory Results - last 24 hr 12/19/22 12:09: POC Glucose 286 H 12/19/22 15:30: Sodium 142, Potassium 5.1, Chloride 118 H, Carbon Dioxide 19 L, Anion Gap 10.1, BUN 42 H, Creatinine 2.80 H, Estimated Creat Clear 19, Estimated GFR 17 L*, Est GFR ( Amer) 20 L, Glucose 117 H D, Calcium 7.3 L, Total Bilirubin 0.3, AST 595 H*, ALT 465 H*, Alkaline Phosphatase 115, Total Protein 4.1 L, Albumin 1.9 L D, Globulin 2.2, Albumin/Globulin Ratio 0.9 L, Lipase 84, Random Vancomycin 18.2 12/19/22 16:30: POC Glucose 132 H 12/19/22 23:12: POC Glucose 400 H* 12/20/22 05:04: POC Glucose 216 H 12/20/22 05:30: WBC 15.8 H, RBC 3.61 L, Hgb 11.3 L, Hct 37.1, MCV 102.8 H, MCH 31.2, MCHC 30.4 L, RDW 15.2, Plt Count 128 L, MPV 10.2, Neut % (Auto) 82.1 H, Lymph % (Auto) 8.7 L, Eddy % (Auto) 6.3, Eos % (Auto) 2.6, Baso % (Auto) 0.3, Neut # (Auto) 13.0 H, Lymph # (Auto) 1.4, Eddy # (Auto) 1.0, Eos # (Auto) 0.4, Baso # (Auto) 0.1, Total Counted 100, Neutrophils % (Manual) 87 H, Lymphocytes % (Manual) 10, Monocytes % (Manual) 2, Eosinophils % (Manual) 1, Platelet Estimate Slight decrease, Macrocytosis 1+, Sodium 143, Potassium 6.1 H*, Chloride 120 H, Carbon Dioxide 14 L, Anion Gap 15.1 H, BUN 43 H, Creatinine 3.00 H, Estimated Creat Clear 20, Estimated GFR 15 L*, Est GFR ( Amer) 19 L*, Glucose 248 H D, Calcium 7.9 L, Total Bilirubin 0.4, AST 490 H*, ALT 486 H*, Alkaline Phosphatase 157 H, Total Protein 4.5 L, Albumin 2.1 L D, Globulin 2.4, Albumin/Globulin Ratio 0.9 L, Lipase 69 12/20/22 06:00: Specimen Source R radial, O2 % 35, ABG pH 7.17 L*, ABG pCO2 35.7, ABG pO2 138.1 H, ABG HCO3 12.8 L, ABG Total CO2 13.9 L, ABG O2 Saturation 99, ABG Base Excess -15.7 L, Khurram Test Acceptable, Vent Rate 16, Tidal Volume 420, PEEP 5 I & O for Last 24 hours: Intake & Output 12/17/22 12/18/22 12/19/22 12/20/22 23:59 23:59 23:59 23:59 Intake Total 19.977 / 19.977 3871 / 4335 7081 / 7794 2685 / 2685 Output Total 555 / 585 460 / 470 120 / 120 Balance 19.977 / 19.977 3316 / 3750 6621 / 7324 2565 / 2565 Weight 130 lb 135 lb 145 lb 8.081 oz 161 lb Microbiology Reports for the Last 24 Hours: Microbiology 12/17/22 19:22 Urine,Catheterized Urine Culture - Final NO GROWTH AFTER 48 HOURS 12/18/22 06:20 Sputum - Endotracheal Tube Aspirate Gram Stain - Final 12/18/22 06:20 Sputum - Endotracheal Tube Aspirate Sputum Culture - Final Normal Respiratory Harleen 12/17/22 17:49 Blood Blood Culture - Preliminary NO GROWTH AFTER 48 HOURS 12/17/22 16:52 Blood Blood Culture - Preliminary NO GROWTH AFTER 48 HOURS *Routine Respiratory Exam Respiratory: Present patient mechanically ventilated *Routine Cardiovascular Exam Cardiovascular: Present RRR, Normal S1 and Normal S2 Progress Note: A&P Assessment and plan (1) On mechanically assisted ventilation: Status: Acute (2) Pneumonia: Status: Acute (3) Acute respiratory failure with hypoxia: Status: Acute Assessment and Plan Assessment and Plan for All Diagnoses:: Acute myocardial injury -In the setting of DKA and shock -Trop 0.16-0.71 -EKG nsr rate of 94, incomplete RBBB -Echo 12/19/2022: Hyperdynamic LV systolic function, mildly dilated RV with normal RV function, mild RA dilation, no significant valvular disease, elevated RVSP 38 -Recommend outpatient ischemic eval Shock-resolving -O
[2022-12-20 11:45] LABS: POC Glucose,Bedside 174 (70-110)
--- NOTE | 2022-12-20 12:05 | PC.NURSE ---
fbs 174, started insulin drip per order at 2units/hr
[2022-12-20 12:22] LABS: Potassium 5.1 mmoL/L (3.5-5.1)
--- NOTE | 2022-12-20 12:45 | EXP.PHA.CONS ---
Pharmacy Consult Date: 12/20/22 Time: 12:46 Referring provider: DR. GARCIA Reason for Consult:: VANCOMYCIN LEVEL Allergies Allergy/AdvReac Type Severity Reaction Status Date / Time codeine [CODEINE] Allergy Unknown ITCHING Verified 12/06/21 10:36 Home Medications Medication Instructions Recorded Confirmed Type insulin glargine 100 unit/mL 14 unit SQ DAILY Diabetes 05/18/17 12/18/22 History subcutaneous solution (Lantus U-100 Insulin) atorvastatin 40 mg tablet 40 mg PO HS Cholesterol 11/05/18 12/18/22 History albuterol sulfate 90 mcg/actuation 1 - 2 puffs IH Q6HP PRN COPD 02/25/21 12/18/22 History aerosol inhaler metoprolol tartrate 25 mg tablet 25 mg PO BID High Blood Pressure 02/25/21 12/18/22 History aspirin 81 mg tablet,delayed 81 mg PO DAILY Heart Health 12/06/21 12/18/22 History release budesonide 160 mcg-glycopyr 9 2 inh inhalation BID Copd 11/20/22 12/18/22 History mcg-formot 4.8 mcg/actuation HFA inhaler (Breztri Aerosphere) cyclobenzaprine 5 mg tablet 5 mg PO TID PRN Muscle Pain 11/20/22 12/18/22 History famotidine 40 mg tablet 40 mg PO HS Acid Reflux 12/18/22 12/18/22 History gabapentin 300 mg capsule 300 mg PO BID Pain 12/18/22 12/18/22 History insulin aspart U-100 100 unit/mL 0 sliding scale dose SQ QID 12/18/22 12/18/22 History (3 mL) subcutaneous pen (Novolog Diabetes FlexPen U-100 Insulin aspart) levothyroxine 200 mcg tablet 200 mcg PO DAILY Thyroid 12/18/22 12/18/22 History meloxicam 15 mg tablet 15 mg PO DAILY Pain 12/18/22 12/18/22 History New Prescriptions to Start Prescriptions: Height: 1.57 m Weight: 73.028 kg Laboratory Results:: Laboratory Results - last 24 hr 12/19/22 15:30: Sodium 142, Potassium 5.1, Chloride 118 H, Carbon Dioxide 19 L, Anion Gap 10.1, BUN 42 H, Creatinine 2.80 H, Estimated Creat Clear 19, Estimated GFR 17 L*, Est GFR ( Amer) 20 L, Glucose 117 H D, Calcium 7.3 L, Total Bilirubin 0.3, AST 595 H*, ALT 465 H*, Alkaline Phosphatase 115, Total Protein 4.1 L, Albumin 1.9 L D, Globulin 2.2, Albumin/Globulin Ratio 0.9 L, Lipase 84, Random Vancomycin 18.2 12/19/22 16:30: POC Glucose 132 H 12/19/22 23:12: POC Glucose 400 H* 12/20/22 05:04: POC Glucose 216 H 12/20/22 05:30: WBC 15.8 H, RBC 3.61 L, Hgb 11.3 L, Hct 37.1, MCV 102.8 H, MCH 31.2, MCHC 30.4 L, RDW 15.2, Plt Count 128 L, MPV 10.2, Neut % (Auto) 82.1 H, Lymph % (Auto) 8.7 L, [place] % (Auto) 6.3, Eos % (Auto) 2.6, Baso % (Auto) 0.3, Neut # (Auto) 13.0 H, Lymph # (Auto) 1.4, [place] # (Auto) 1.0, Eos # (Auto) 0.4, Baso # (Auto) 0.1, Total Counted 100, Neutrophils % (Manual) 87 H, Lymphocytes % (Manual) 10, Monocytes % (Manual) 2, Eosinophils % (Manual) 1, Platelet Estimate Slight decrease, Macrocytosis 1+, Sodium 143, Potassium 6.1 H*, Chloride 120 H, Carbon Dioxide 14 L, Anion Gap 15.1 H, BUN 43 H, Creatinine 3.00 H, Estimated Creat Clear 20, Estimated GFR 15 L*, Est GFR ( Amer) 19 L*, Glucose 248 H D, Calcium 7.9 L, Total Bilirubin 0.4, AST 490 H*, ALT 486 H*, Alkaline Phosphatase 157 H, Total Protein 4.5 L, Albumin 2.1 L D, Globulin 2.4, Albumin/Globulin Ratio 0.9 L, Lipase 69 12/20/22 06:00: Specimen Source R radial, O2 % 35, ABG pH 7.17 L*, ABG pCO2 35.7, ABG pO2 138.1 H, ABG HCO3 12.8 L, ABG Total CO2 13.9 L, ABG O2 Saturation 99, ABG Base Excess -15.7 L, Khurram Test Acceptable, Vent Rate 16, Tidal Volume 420, PEEP 5 12/20/22 11:36: POC Glucose 174 H 12/20/22 12:05: Potassium 5.1 Medical History: Medical History (Updated 12/20/22 @ 10:48 by Elvira Cárdenas MD) Acute respiratory failure with hypoxia COPD (chronic obstructive pulmonary disease) Coronary artery disease Degenerative disc disease, cervical Disorder of neck Hypertension Hypothyroid On mechanically assisted ventilation Type 1 diabetes Umbilical hernia Assessment and Plan Assessment and plan all Dx Assessment and Plan for all problems:: PATIENT'S VANCOMCYIN LEVEL AT 1530 ON 12/19/22 WAS 18.2 MCG/ML. PATIENT RECEIVED VANCOMYCI
--- NOTE | 2022-12-20 13:39 | PC.NURSE ---
fsbs 100, decreased insulin drip to 1unit/hr
--- NOTE | 2022-12-20 15:09 | PC.NURSE ---
fsbs 64, stopped insulin drip at this time
--- NOTE | 2022-12-20 15:16 | PC.NURSE ---
notified MD Gee that stopped insulin drip due to FSBS 64, no new orders at this time
[2022-12-20 15:18] LABS: POC Glucose,Bedside 64 (70-110)
[2022-12-20 15:18] LABS: POC Glucose,Bedside 100 (70-110)
--- NOTE | 2022-12-20 17:03 | PC.NURSE ---
MD Gee rounded on pt and stated to have MIVF going at 50mL/hr
[2022-12-20 17:13] LABS: Vancomycin,Trough 25.9 ug/mL (5.0-10.0)
--- NOTE | 2022-12-20 17:18 | PC.NURSE ---
notified nightwatch of pts vanc trough 25.9. per nightwatch, hold jose santana.
--- NOTE | 2022-12-20 18:08 | PC.NURSE ---
changed tubefeed bag and propofol tubing
--- NOTE | 2022-12-20 18:49 | PC.NURSE ---
pt's daughter Cheryl stated pt's granddaughter Zachariah is also a preferred contact and Zachariah's number is [phone]
--- NOTE | 2022-12-20 18:57 | PC.NURSE ---
propofol at 15mcg/kg/min and fentanyl at 25mcg/hr, MIVF at 50mL/hr, tubefeed rate at 40mL/hr which is goal
[2022-12-20 20:09] LABS: POC Glucose,Bedside 52 (70-110)
[2022-12-20 20:09] LABS: POC Glucose,Bedside 65 (70-110)
[2022-12-20 20:09] LABS: POC Glucose,Bedside 82 (70-110)
[2022-12-20 20:09] LABS: POC Glucose,Bedside 53 (70-110)
[2022-12-20 20:09] LABS: POC Glucose,Bedside 56 (70-110)
[2022-12-20 20:15] LABS: Anion Gap 13.8 mEq/L (5-15); Blood Urea Nitrogen 46 mg/dl (7-17); Calcium 7.8 mg/dl (8.4-10.2); Carbon Dioxide 14 mmol/L (22.0-30.0); Chloride 121 mmol/L (98-107); Creatinine Clearance Estimated 19 mL/min (50-200); Estimated Glomerular Filt Rate 15 ml/min (>60); GFR (African American) 18 ML/MIN (>60); Glucose 121 mg/dl (74-100); Potassium 5.8 mmoL/L (3.5-5.1); Sodium 143 mmol/L (136-145)
[2022-12-20 20:37] LABS: Acetone, Serum (Rapid) None Detected (None Detect)
[2022-12-20 21:07] LABS: POC Glucose,Bedside 128 (70-110)
[2022-12-20 21:07] LABS: POC Glucose,Bedside 50 (70-110)
[2022-12-20 21:07] LABS: POC Glucose,Bedside 51 (70-110)
--- NOTE | 2022-12-20 21:14 | PC.NURSE ---
At 1915 Dr. Gee notified of patient's low blood sugar readings. Order to start D5NS@75ml/hr. Stat BMP and Acetone ordered per DKA protocol. BGL at 1940-40. 1/2 amp D50 given. Recheck at 1999-82. BGL at 2015-51. 1/2 amp D50 given. Recheck at 2030-50. 1 amp D50 given. Recheck at 2100- 128.
[2022-12-20 21:41] LABS: POC Glucose,Bedside 56 (70-110)
[2022-12-20 22:36] LABS: POC Glucose,Bedside 118 (70-110)
[2022-12-20 22:36] LABS: POC Glucose,Bedside 144 (70-110)
[2022-12-20 22:36] LABS: POC Glucose,Bedside 110 (70-110)
[2022-12-20 23:08] LABS: POC Glucose,Bedside 136 (70-110)
[2022-12-20 23:12] LABS: Anion Gap 15.9 mEq/L (5-15); Blood Urea Nitrogen 46 mg/dl (7-17); Calcium 7.8 mg/dl (8.4-10.2); Carbon Dioxide 14 mmol/L (22.0-30.0); Chloride 119 mmol/L (98-107); Creatinine Clearance Estimated 19 mL/min (50-200); Estimated Glomerular Filt Rate 15 ml/min (>60); GFR (African American) 18 ML/MIN (>60); Glucose 242 mg/dl (74-100); Potassium 5.9 mmoL/L (3.5-5.1); Sodium 143 mmol/L (136-145)
--- NOTE | 2022-12-20 23:28 | PC.NURSE ---
Dr. Gee paged at [id number] and informed of patient's BMP results, specifically K 5.9, Ca 7.8, anion gap and acetone, creat of 3.10, UOP of 15ml/hr. Informed of patient's need for 3 amps of D50 and that BGL's have been unstable. Informed that L hand is cold, dusky, and only has pulse per doppler. states this is ok, d/c Q4H BMPs, recheck in AM and to not resume insulin drip tonight.
[2022-12-21] VITALS (31 sets, daily range): BP systolic 105–155; BP diastolic 39–67; PULSE 90–110; RESP 16–19; TEMP 37–37.6; O2SAT 98–100; BMI 29.9
[2022-12-21 00:10] LABS: POC Glucose,Bedside 250 (70-110)
[2022-12-21 01:08] LABS: POC Glucose,Bedside 191 (70-110)
[2022-12-21 04:36] LABS: POC Glucose,Bedside 206 (70-110)
[2022-12-21 04:36] LABS: POC Glucose,Bedside 224 (70-110)
[2022-12-21 04:36] LABS: POC Glucose,Bedside 232 (70-110)
[2022-12-21 05:35] LABS: Basophils % 0.2 % (0.1-2.0); Eosinophils % 6.6 % (0.1-12.0); Hematocrit 35.4 % (37.0-47.0); Hemoglobin 10.9 g/dL (12.2-16.2); Lymphocytes # 1.3 K/mm3 (0.7-4.5); Lymphocytes % 8.5 % (10-50); Mean Corpuscular HGB Conc 30.8 g/dL (31.8-35.4); Mean Corpuscular Hemoglobin 31.3 pg (27.0-31.2); Mean Corpuscular Volume 101.8 fl (81-99); Mean Platelet Volume 10.8 fl (7.4-10.4); Monocytes # 0.8 K/mm3 (0.1-1.0); Monocytes % 5.2 % (1.7-9.3); Neutrophils # 11.9 K/mm3 (1.8-7.8); Neutrophils % 79.5 % (37.0-80.0); Platelet Count 101 K/mm3 (142-424); Red Blood Count 3.48 M/mm3 (4.20-5.40); Red Cell Distribution Width 15.2 % (11.5-17.5)
[2022-12-21 05:39] LABS: MANUAL DIFFERENTIAL MANUAL DIFFERENTIAL (MANUAL DIFF)
[2022-12-21 05:40] LABS: Chloride 121 mmol/L (98-107); Potassium 5.9 mmoL/L (3.5-5.1); Sodium 141 mmol/L (136-145)
[2022-12-21 05:43] LABS: Alanine Aminotransferase 384 U/L (12-78); Albumin Level 2.1 g/dl (3.5-5.0); Albumin/Globulin Ratio 0.9 (1.1-1.8); Alkaline Phosphatase 169 U/L (38-126); Anion Gap 12.9 mEq/L (5-15); Aspartate Amino Transferase 249 U/L (14-36); Bilirubin,Total 0.4 mg/dl (0.2-1.3); Blood Urea Nitrogen 50 mg/dl (7-17); Carbon Dioxide 13 mmol/L (22.0-30.0); Creatinine Clearance Estimated 18 mL/min (50-200); Estimated Glomerular Filt Rate 14 ml/min (>60); GFR (African American) 17 ML/MIN (>60); Globulin 2.3 g/dL (1.3-3.2); Total Protein,Serum 4.4 g/dl (6.3-8.2)
[2022-12-21 05:44] LABS: Calcium 8.3 mg/dl (8.4-10.2); Glucose 218 mg/dl (74-100)
--- NOTE | 2022-12-21 06:00 | XR_ITS ---
PROCEDURE INFORMATION: Exam: XR Chest Exam date and time: 12/21/2022 5:28 AM Age: 72 years old Clinical indication: Device placement; Ett placement (vent status); Additional info: Pneumonia mechanical ventilation TECHNIQUE: Imaging protocol: Radiologic exam of the chest. Views: 1 view. COMPARISON: CR XR CHEST PORTABLE 12/20/2022 5:22 AM FINDINGS: Tubes, catheters and devices: An endotracheal catheter is noted with its tip overlying the level of the thoracic inlet. An enteric catheter extends to the abdomen, tip not imaged. A right-sided peripherally inserted central catheter is noted with its tip projected over the expected course of the superior vena cava. Lungs: Developing bibasilar opacities likely represent effusion and/or parenchymal disease, [id number]-[id number]-left. Pleural spaces: Unremarkable. No pleural effusion. No pneumothorax. Heart/Mediastinum: Unremarkable. No cardiomegaly. Bones/joints: The bones are generally osteopenic. IMPRESSION: Support lines and catheters in place as described. Developing bibasilar opacities likely representing effusion and/or parenchymal disease.
[2022-12-21 06:15] LABS: Eosinophils % 3 % (0-3); Lymphocytes % 11 % (10-50); Neutrophils % 86 % (42-76); Total Cells Counted 100
[2022-12-21 06:16] LABS: Macrocytosis 1+; Platelet Estimate Normal
[2022-12-21 06:25] LABS: ABG Base Excess -16.6 mmol/L (-2.4-2.3); ABG HCO3 11.9 mmhg (22.0-26.0); ABG Oxygen Saturation 97 % (90-100); ABG PCO2 33.3 mmhg (35.0-45.0); ABG PO2 102.4 mmhg (80-100)
[2022-12-21 06:28] LABS: Allen's Test Patient Unable; Oxygen 35% %; PEEP 5; Source Right Radial; Tidal Volume 420; Vent Rate 16
[2022-12-21 06:29] LABS: ABG PH 7.17 mmol/L (7.35-7.45)
[2022-12-21 06:59] LABS: POC Glucose,Bedside 228 (70-110)
[2022-12-21 06:59] LABS: POC Glucose,Bedside 182 (70-110)
[2022-12-21 06:59] LABS: POC Glucose,Bedside 348 (70-110)
--- NOTE | 2022-12-21 08:16 | PC.NURSE ---
Addendum entered by Jesi Brady RN 12/21/22 08:17: [facility] tubefeed rate at goal of 40mL/hr Original Note: pt's fsbs 170, started insulin drip at 1unit/hr; propofol at 15mcg/kg/min, fentanyl at 25mcg/hr, D5 at 75mL/hr
--- NOTE | 2022-12-21 08:38 | EXP.ACUTE.PN ---
Subjective *Date: 12/21/22 *Time: 09:06 Interval history: Nursing states patient's glucose dropped in the night and her insulin drip had to be discontinued. It was restarted this morning. Her white blood cell count has improved slightly. Her liver tests are improving but her renal function is worsening. Medical Exam Vital signs and Labs for Last 24 Hours: Vital Signs Temp Pulse Pulse Resp BP Pulse Ox O2 Del Method 12/21/22 08:00 98.8 F 92 H 16 139/58 L 100 Mechanical Ventilation 12/21/22 07:00 94 H 16 135/59 L 100 Mechanical Ventilation 12/21/22 07:00 Mechanical Ventilation 12/21/22 06:00 98 H 16 151/67 H 100 Mechanical Ventilation 12/21/22 05:59 104 H 12/21/22 05:59 96 H 12/21/22 05:59 17 100 12/21/22 04:00 100 H 12/21/22 05:00 94 H 16 125/46 L 100 Mechanical Ventilation 12/21/22 05:00 Mechanical Ventilation 12/21/22 04:00 99 F 94 H 16 127/54 L 100 Mechanical Ventilation 12/21/22 04:00 100 Mechanical Ventilation 12/21/22 04:00 16 100 12/21/22 00:00 90 12/21/22 03:00 95 H 16 118/53 L 100 Mechanical Ventilation 12/21/22 03:00 Mechanical Ventilation 12/21/22 02:05 17 100 12/21/22 02:00 95 H 16 133/56 L 100 Mechanical Ventilation 12/21/22 01:00 93 H 16 105/43 L 100 Mechanical Ventilation 12/21/22 01:00 Mechanical Ventilation 12/21/22 00:00 98.9 F 91 H 16 115/45 L 100 Mechanical Ventilation 12/21/22 00:00 12/21/22 00:00 100 Mechanical Ventilation 12/20/22 23:59 16 100 12/20/22 23:00 94 H 16 114/49 L 100 Mechanical Ventilation 12/20/22 23:00 Mechanical Ventilation 12/20/22 22:00 90 16 129/44 L 100 Mechanical Ventilation 12/20/22 21:00 94 H 16 112/42 L 100 Mechanical Ventilation 12/20/22 21:00 Mechanical Ventilation 12/20/22 20:00 Mechanical Ventilation 12/20/22 20:00 99 F 101 H 16 140/55 L 98 Mechanical Ventilation 12/20/22 22:03 16 100 12/20/22 20:00 96 H 12/20/22 20:02 16 99 12/20/22 18:55 96 H 16 122/50 L 99 Mechanical Ventilation 12/20/22 18:45 100 Mechanical Ventilation 12/20/22 18:42 16 100 12/20/22 18:00 95 H 16 111/47 L 100 Mechanical Ventilation 12/20/22 17:00 96 H 16 118/49 L 99 Mechanical Ventilation 12/20/22 18:11 Mechanical Ventilation 12/20/22 17:00 Mechanical Ventilation 12/20/22 16:00 100 H 12/20/22 16:00 98 Mechanical Ventilation 12/20/22 16:00 99.3 F 95 H 16 125/58 L 99 Mechanical Ventilation 12/20/22 12:00 90 12/20/22 15:00 Mechanical Ventilation 12/20/22 15:00 94 H 16 107/49 L 98 Mechanical Ventilation 12/20/22 14:23 16 100 12/20/22 09:40 16 100 12/20/22 12:00 100 Mechanical Ventilation 12/20/22 14:00 99.3 F 99 H 16 128/58 L 98 Mechanical Ventilation 12/20/22 13:00 Mechanical Ventilation 12/20/22 11:00 Mechanical Ventilation 12/20/22 13:00 99.0 F 99 H 16 112/43 L 98 Mechanical Ventilation 12/20/22 12:00 98.8 F 98 H 16 112/50 L 99 Mechanical Ventilation 12/20/22 11:00 102 H 16 127/41 L 98 Mechanical Ventilation 12/20/22 10:00 91 H 16 116/59 L 100 Mechanical Ventilation 12/20/22 09:00 90 16 101/50 L 100 Mechanical Ventilation 12/20/22 09:00 Mechanical Ventilation FiO2 12/21/22 08:00 35 12/21/22 07:00 35 12/21/22 07:00 12/21/22 06:00 35 12/21/22 05:59 12/21/22 05:59 12/21/22 05:59 35 12/21/22 04:00 12/21/22 05:00 35 12/21/22 05:00 12/21/22 04:00 35 12/21/22 04:00 35 12/21/22 04:00 12/21/22 00:00 12/21/22 03:00 35 12/21/22 03:00 12/21/22 02:05 12/21/22 02:00 35 12/21/22 01:00 35 12/21/22 01:00 12/21/22 00:00 35 12/21/22 00:00 35 12/21/22 00:00 35 12/20/22 23:59 12/20/22 23:00 35 12/20/22 23:00 12/20/22 22:00 35 12/20/22 21:00
--- NOTE | 2022-12-21 09:31 | EXP.PULM.PN ---
Subjective *Date: 12/21/22 *Time: 10:43 Interval history: No acute respiratory vents overnight. Stable ventilator settings. Pulmonology Exam Inpatient Vital signs and Labs for Last 24 Hours: Temp Pulse Resp BP Pulse Ox O2 Del Method O2 Flow Rate 98.8 F 91 H 16 128/55 L 98 Mechanical Ventilation 100 12/21/22 09:00 12/21/22 09:00 12/21/22 09:00 12/21/22 09:00 12/21/22 09:00 12/21/22 09:00 12/18/22 04:00 FiO2 35 12/21/22 09:00 Laboratory Results - last 24 hr 12/20/22 11:36: POC Glucose 174 H 12/20/22 12:05: Potassium 5.1 12/20/22 13:37: POC Glucose 100 12/20/22 15:06: POC Glucose 64 L 12/20/22 16:13: POC Glucose 56 L 12/20/22 16:27: Vancomycin Trough 25.9 H 12/20/22 17:01: POC Glucose 53 L 12/20/22 18:00: POC Glucose 65 L 12/20/22 18:52: POC Glucose 52 L 12/20/22 19:55: Sodium 143, Potassium 5.8 H, Chloride 121 H, Carbon Dioxide 14 L, Anion Gap 13.8, BUN 46 H, Creatinine 3.10 H, Estimated Creat Clear 19, Estimated GFR 15 L*, Est GFR ( Amer) 18 L*, Glucose 121 H D, Calcium 7.8 L, Acetone Level None detected 12/20/22 20:01: POC Glucose 82 12/20/22 20:17: POC Glucose 51 L 12/20/22 20:34: POC Glucose 50 L 12/20/22 21:00: POC Glucose 128 H 12/20/22 21:34: POC Glucose 56 L 12/20/22 22:01: POC Glucose 118 H 12/20/22 22:15: POC Glucose 144 H 12/20/22 22:30: POC Glucose 110 12/20/22 22:45: Sodium 143, Potassium 5.9 H, Chloride 119 H, Carbon Dioxide 14 L, Anion Gap 15.9 H, BUN 46 H, Creatinine 3.10 H, Estimated Creat Clear 19, Estimated GFR 15 L*, Est GFR ( Amer) 18 L*, Glucose 242 H D, Calcium 7.8 L 12/20/22 23:00: POC Glucose 136 H 12/21/22 00:02: POC Glucose 250 H 12/21/22 01:01: POC Glucose 191 H 12/21/22 02:04: POC Glucose 224 H 12/21/22 03:07: POC Glucose 232 H 12/21/22 04:09: POC Glucose 206 H 12/21/22 05:19: POC Glucose 348 H* 12/21/22 05:25: WBC 15.0 H, RBC 3.48 L, Hgb 10.9 L, Hct 35.4 L, MCV 101.8 H, MCH 31.3 H, MCHC 30.8 L, RDW 15.2, Plt Count 101 L, MPV 10.8 H, Neut % (Auto) 79.5, Lymph % (Auto) 8.5 L, [place] % (Auto) 5.2, Eos % (Auto) 6.6, Baso % (Auto) 0.2, Neut # (Auto) 11.9 H, Lymph # (Auto) 1.3, [place] # (Auto) 0.8, Eos # (Auto) 1.0 H, Baso # (Auto) 0.0, Total Counted 100, Neutrophils % (Manual) 86 H, Lymphocytes % (Manual) 11, Eosinophils % (Manual) 3, Platelet Estimate Normal, Macrocytosis 1+, Sodium 141, Potassium 5.9 H, Chloride 121 H, Carbon Dioxide 13 L, Anion Gap 12.9, BUN 50 H, Creatinine 3.30 H, Estimated Creat Clear 18, Estimated GFR 14 L*, Est GFR ( Amer) 17 L*, Glucose 218 H, Calcium 8.3 L, Total Bilirubin 0.4, AST 249 H D, ALT 384 H*, Alkaline Phosphatase 169 H, Total Protein 4.4 L, Albumin 2.1 L, Globulin 2.3, Albumin/Globulin Ratio 0.9 L 12/21/22 06:00: Specimen Source Right radial, O2 % 35%, ABG pH 7.17 L*, ABG pCO2 33.3 L, ABG pO2 102.4 H, ABG HCO3 11.9 L, ABG Total CO2 13.0 L, ABG O2 Saturation 97, ABG Base Excess -16.6 L, Khurram Test Patient unable, Vent Rate 16, Tidal Volume 420, PEEP 5 12/21/22 06:13: POC Glucose 182 H 12/21/22 06:52: POC Glucose 228 H I & O for Labs for Last 24 Hours: Intake & Output 12/18/22 12/19/22 12/20/22 12/21/22 23:59 23:59 23:59 23:59 Intake Total 3871 / 4335 7081 / 7794 3630.917 / 4027.917 717 / 717 Output Total 555 / 585 460 / 470 315 / 330 105 / 105 Balance 3316 / 3750 6621 / 7324 3315.917 / 3697.917 612 / 612 Weight 135 lb 145 lb 8.081 oz 161 lb 162 lb 9.6 oz Microbiology Reports for the Last 24 Hours: Microbiology 12/20/22 14:25 Sputum - Endotracheal Tube Aspirate Gram Stain - Final 12/17/22 19:22 Urine,Catheterized Urine Culture - Final NO GROWTH AFTER 48 HOURS 12/18/22 06:20 Sputum - Endotracheal Tube Aspirate Gram Stain - Final 12/18/22 06:20 Sputum - Endotracheal Tube Aspirate Sputum Culture - Final Normal Respiratory Harleen Constitutional: Present severe distress Comment:: Intubated and Sedated Head: Present normocephalic and atraumatic Neck: Present nor
--- NOTE | 2022-12-21 09:52 | PC.NURSE ---
MD Hensley instructed this RN to stop D5 at this time, D5 at 75mL/hr stopped
[2022-12-21 11:02] LABS: POC Glucose,Bedside 170 (70-110)
[2022-12-21 11:02] LABS: POC Glucose,Bedside 215 (70-110)
[2022-12-21 11:02] LABS: POC Glucose,Bedside 206 (70-110)
[2022-12-21 11:02] LABS: POC Glucose,Bedside 204 (70-110)
--- NOTE | 2022-12-21 13:07 | DIET.NUTRFU ---
With propofol still running goal rate would be at 40ml/hr, she is at goal rate is providing 1440kcal and 60gm protein. CBW is up to 73.4kg, up almost 20# since admit. She has edema noted and poor urine output at 315ml. She is a diabetic, had low BS of 64 and insulin drip was stopped. Due to l;ow BS will continue non diabetic formula of pulmocare. She continues on propofol received 162ml yesterday with a average of 154ml/day providing 169kcal. She has been requiring more propofol the last 2 days. Dextrose is ordered again for today, continue minimal flushes. K elevated at 5.9H, provider aware, dextrose should help. Noted to have BM 12/20. Skin is currently intact but at increased risk due to limited mobility and staff dependent. Will continue current POC
--- NOTE | 2022-12-21 14:00 | PC.NURSE ---
notified MD Gee that pt's fsbs 130 and MIVF had been stopped and insulin drip at 1unit/hr, stated that if fsbs is less than 100 stop insulin drip
[2022-12-21 17:20] LABS: Vancomycin,Random 23.6 ug/ml
--- NOTE | 2022-12-21 18:05 | PC.NURSE ---
Addendum entered by Jesi Brady RN 12/21/22 18:07: vanc level of 23.6... Original Note: spoke with Shanae STOREY at [facility] about pt's random vanc level of 23.9, instructed to hold dose scheduled for 1700
--- NOTE | 2022-12-21 20:37 | PC.NURSE ---
@ 2004 THIS RN TITRATED PROPOFOL 15 MCG/MIN TO 25 MCG/KG/MIN D/T BP SEEMING AGITATED AND BP 160/53
--- NOTE | 2022-12-21 20:40 | PC.NURSE ---
THIS RN PAGED DR. GARCIA @ 2025 D/T OGT RESIDUALS BEING 800; NO CALL BACK THUS FAR, 15 MINS.
--- NOTE | 2022-12-21 20:47 | PC.NURSE ---
@ 2041 DR. GARCIA RETURNED THIS RN'S PAGE; TELEPHONE ORDERS GIVEN TO NOT RETURN 800 OF RESIDUALS, LOWER TF RATE FROM 40ML/HR TO 20ML/HR, AND GET A KUB TO CHECK FOR ILEUS. WILL PAGE DR. GARCIA WITH ANY CRITICAL FINDINGS. THIS RN WILL RECHECK RESIDUALS IN 4 HOURS FROM RESTARTING TF AT A RATE OF 20ML/HR.
--- NOTE | 2022-12-21 20:51 | XR_ITS ---
PROCEDURE INFORMATION: Exam: XR Abdomen Exam date and time: 12/21/2022 9:34 PM Age: 72 years old Clinical indication: Other: Intubation; Additional info: Ogt residuals 800 TECHNIQUE: Imaging protocol: Radiologic exam of the abdomen. Views: Frontal supine view of the abdomen. 1 View. COMPARISON: US ABDOMEN LIMITED 12/19/2022 4:17 PM FINDINGS: Tubes, catheters and devices: Enteric tube in place, tip and side port project over the stomach. Bladder temperature probe place. Gastrointestinal tract: Unremarkable bowel-gas pattern. Bones/joints: Partially visualized degenerative disease of the lumbar spine. IMPRESSION: Unremarkable bowel gas pattern. Radiographically appropriate position of enteric tube.
[2022-12-21 21:18] LABS: POC Glucose,Bedside 101 (70-110)
[2022-12-21 21:18] LABS: POC Glucose,Bedside 128 (70-110)
[2022-12-21 21:18] LABS: POC Glucose,Bedside 154 (70-110)
[2022-12-21 21:18] LABS: POC Glucose,Bedside 120 (70-110)
[2022-12-21 21:18] LABS: POC Glucose,Bedside 83 (70-110)
[2022-12-21 21:18] LABS: POC Glucose,Bedside 177 (70-110)
[2022-12-21 21:18] LABS: POC Glucose,Bedside 130 (70-110)
[2022-12-21 21:18] LABS: POC Glucose,Bedside 183 (70-110)
[2022-12-21 21:18] LABS: POC Glucose,Bedside 160 (70-110)
[2022-12-21 21:18] LABS: POC Glucose,Bedside 190 (70-110)
[2022-12-22] VITALS (16 sets, daily range): BP systolic 110–142; BP diastolic 37–61; PULSE 102–140; RESP 16–24; TEMP 36.8–37.6; O2SAT 96–100; BMI 29.8
--- NOTE | 2022-12-22 02:24 | PC.NURSE ---
12/21/22 @1900 GTT VERIFICATION PER THIS RN: PROPOFOL INFUSING @ 15 MCG/KG/MIN, FENTANYL INFUSING @ 25 MCG/HR, TF @ 40ML/HR W/ 100ML FLUSH Q8H @2000 TF RESIDUALS 800; HOLDING TF AND RESIDUALS UNTIL MD GIVES NEW ORDERS @2200 THIS RN GAVE PT A COMPLETE BED BATH, COMPLETE LINEN CHANGE, LOTION, POWDER, DEODORANT, ORAL CARE PER PROTOCOL @ 2325: TF RESTARTED @ 20ML/HR BY THIS RN @ 2345: PROPOFOL TITRATED FROM 25 MCG/KG/MIN TO 35 MCG/KG/MIN @ 2300: PT HAD A SMALL BM 12/22/22 @ 0005: FENTANYL TITRATED FROM 25 MCG/HR TO 50 MCG/HR D/T PT AGITATION @ 0105: PROPOFOL TITRATED FROM 35 MCG/KG/MIN TO 25 MCG/KG/MIN
[2022-12-22 04:47] LABS: POC Glucose,Bedside 238 (70-110)
--- NOTE | 2022-12-22 06:00 | XR_ITS ---
PROCEDURE INFORMATION: Exam: XR Chest Exam date and time: 12/22/2022 5:28 AM Age: 72 years old Clinical indication: Device placement; Ett placement (vent status); Additional info: Pneumonia mechanical ventilation TECHNIQUE: Imaging protocol: Radiologic exam of the chest. Views: 1 view. COMPARISON: CR XR CHEST PORTABLE 12/21/2022 5:28 AM FINDINGS: Tubes, catheters and devices: An endotracheal catheter is noted with its tip at the thoracic inlet. An enteric catheter extends to the abdomen, tip not imaged. A right-sided peripherally inserted central catheter is noted with its tip projected over the expected course of the superior vena cava. Lungs: Persistent bibasilar opacities likely represent effusion and/or parenchymal disease worse on the right with superimposed patchy increased opacity in the right upper lobe. Pleural spaces: Unremarkable. No pleural effusion. No pneumothorax. Heart/Mediastinum: Unremarkable. No cardiomegaly. Bones/joints: The bones are osteopenic. IMPRESSION: No significant change from the prior study.
--- NOTE | 2022-12-22 06:15 | PC.NURSE ---
@0400 THIS RN CHECKED TF RESIDUALS AFTER TF INFUSING @ 20ML/HR FOR ; RESIDUALS 200, RESIDUALS RETURNED AND TF HELD UNTIL MD ROUNDS. THIS RN WILL PASS THIS INFO ONTO DAYSHIFT TO UPDATE MD ON ROUNDS.
[2022-12-22 06:42] LABS: ABG Base Excess -21.6 mmol/L (-2.4-2.3); ABG HCO3 8.3 mmhg (22.0-26.0); ABG Oxygen Saturation 97 % (90-100); ABG PCO2 28.4 mmhg (35.0-45.0); ABG TCO2 9.2 mmhg (23-27)
[2022-12-22 06:45] LABS: Oxygen 35 %; PEEP 5; Tidal Volume 420; Vent Rate 16
[2022-12-22 06:46] LABS: ABG PH 7.08 mmol/L (7.35-7.45); Allen's Test acceptable
[2022-12-22 06:49] LABS: Basophils # 0.1 K/mm3 (0-0.2); Basophils % 0.4 % (0.1-2.0); Eosinophils # 0.2 K/mm3 (0.0-0.4); Hematocrit 35.5 % (37.0-47.0); Hemoglobin 10.9 g/dL (12.2-16.2); Lymphocytes # 1.5 K/mm3 (0.7-4.5); Lymphocytes % 8.1 % (10-50); Mean Corpuscular HGB Conc 30.7 g/dL (31.8-35.4); Mean Corpuscular Hemoglobin 31.6 pg (27.0-31.2); Mean Corpuscular Volume 102.8 fl (81-99); Mean Platelet Volume 12.7 fl (7.4-10.4); Monocytes # 1.1 K/mm3 (0.1-1.0); Monocytes % 5.8 % (1.7-9.3); Neutrophils # 15.6 K/mm3 (1.8-7.8); Neutrophils % 84.7 % (37.0-80.0); Platelet Count 124 K/mm3 (142-424); Red Blood Count 3.45 M/mm3 (4.20-5.40); Red Cell Distribution Width 15.2 % (11.5-17.5); White Blood Count 18.4 K/mm3 (4.8-10.8)
[2022-12-22 06:50] LABS: Chloride 119 mmol/L (98-107); Sodium 142 mmol/L (136-145)
[2022-12-22 06:52] LABS: Blood Urea Nitrogen 59 mg/dl (7-17); Creatinine Clearance Estimated 14 mL/min (50-200); Estimated Glomerular Filt Rate 10 ml/min (>60); GFR (African American) 12 ML/MIN (>60)
[2022-12-22 06:53] LABS: Alanine Aminotransferase 294 U/L (12-78); Albumin Level 2.1 g/dl (3.5-5.0); Albumin/Globulin Ratio 0.8 (1.1-1.8); Alkaline Phosphatase 218 U/L (38-126); Anion Gap 21.9 mEq/L (5-15); Aspartate Amino Transferase 137 U/L (14-36); Bilirubin,Total 0.6 mg/dl (0.2-1.3); Calcium 8.7 mg/dl (8.4-10.2); Globulin 2.5 g/dL (1.3-3.2); Glucose 244 mg/dl (74-100); Phosphorous 6.9 mg/dl (2.5-4.5); Total Protein,Serum 4.6 g/dl (6.3-8.2)
[2022-12-22 06:54] LABS: Magnesium 2.1 mg/dl (1.6-2.3)
[2022-12-22 07:01] LABS: MANUAL DIFFERENTIAL MANUAL DIFFERENTIAL (MANUAL DIFF); Potassium 6.9 mmoL/L (3.5-5.1)
[2022-12-22 07:02] LABS: Carbon Dioxide 8 mmol/L (22.0-30.0)
[2022-12-22 07:47] LABS: Acetone, Serum (Rapid) Moderate (None Detect)
[2022-12-22 07:55] LABS: POC Glucose,Bedside 315 (70-110)
[2022-12-22 07:58] LABS: Lymphocytes % 13 % (10-50); Monocytes % 4 % (2-9); Neutrophils % 83 % (42-76); Total Cells Counted 100
--- NOTE | 2022-12-22 07:58 | PC.NURSE ---
notified of pt labs and increasing tachycardia currently 135. states he will be in. No new orders at this time.
[2022-12-22 07:59] LABS: Macrocytosis 1+; Platelet Estimate Slight Decrease
--- NOTE | 2022-12-22 08:18 | EXP.PHA.CONS ---
Pharmacy Consult Date: 12/22/22 Time: 08:18 Referring provider: DR. GARCIA Reason for Consult:: VANCOMYCIN LEVEL AND DOSING Allergies Allergy/AdvReac Type Severity Reaction Status Date / Time codeine [CODEINE] Allergy Unknown ITCHING Verified 12/06/21 10:36 Home Medications Medication Instructions Recorded Confirmed Type insulin glargine 100 unit/mL 14 unit SQ DAILY Diabetes 05/18/17 12/18/22 History subcutaneous solution (Lantus U-100 Insulin) atorvastatin 40 mg tablet 40 mg PO HS Cholesterol 11/05/18 12/18/22 History albuterol sulfate 90 mcg/actuation 1 - 2 puffs IH Q6HP PRN COPD 02/25/21 12/18/22 History aerosol inhaler metoprolol tartrate 25 mg tablet 25 mg PO BID High Blood Pressure 02/25/21 12/18/22 History aspirin 81 mg tablet,delayed 81 mg PO DAILY Heart Health 12/06/21 12/18/22 History release budesonide 160 mcg-glycopyr 9 2 inh inhalation BID Copd 11/20/22 12/18/22 History mcg-formot 4.8 mcg/actuation HFA inhaler (Breztri Aerosphere) cyclobenzaprine 5 mg tablet 5 mg PO TID PRN Muscle Pain 11/20/22 12/18/22 History famotidine 40 mg tablet 40 mg PO HS Acid Reflux 12/18/22 12/18/22 History gabapentin 300 mg capsule 300 mg PO BID Pain 12/18/22 12/18/22 History insulin aspart U-100 100 unit/mL 0 sliding scale dose SQ QID 12/18/22 12/18/22 History (3 mL) subcutaneous pen (Novolog Diabetes FlexPen U-100 Insulin aspart) levothyroxine 200 mcg tablet 200 mcg PO DAILY Thyroid 12/18/22 12/18/22 History meloxicam 15 mg tablet 15 mg PO DAILY Pain 12/18/22 12/18/22 History New Prescriptions to Start Prescriptions: Height: 1.57 m Weight: 73.573 kg Laboratory Results:: Laboratory Results - last 24 hr 12/21/22 07:55: POC Glucose 170 H 12/21/22 08:53: POC Glucose 215 H 12/21/22 09:51: POC Glucose 206 H 12/21/22 10:51: POC Glucose 204 H 12/21/22 11:59: POC Glucose 183 H 12/21/22 12:59: POC Glucose 160 H 12/21/22 13:50: POC Glucose 130 H 12/21/22 14:58: POC Glucose 120 H 12/21/22 15:52: POC Glucose 101 12/21/22 16:40: Random Vancomycin 23.6 12/21/22 16:41: POC Glucose 83 12/21/22 17:35: POC Glucose 128 H 12/21/22 18:41: POC Glucose 154 H 12/21/22 19:37: POC Glucose 177 H 12/21/22 21:10: POC Glucose 190 H 12/22/22 02:19: POC Glucose 238 H 12/22/22 04:15: WBC 18.4 H, RBC 3.45 L, Hgb 10.9 L, Hct 35.5 L, MCV 102.8 H, MCH 31.6 H, MCHC 30.7 L, RDW 15.2, Plt Count 124 L, MPV 12.7 H, Neut % (Auto) 84.7 H, Lymph % (Auto) 8.1 L, [place] % (Auto) 5.8, Eos % (Auto) 1.0, Baso % (Auto) 0.4, Neut # (Auto) 15.6 H, Lymph # (Auto) 1.5, [place] # (Auto) 1.1 H, Eos # (Auto) 0.2, Baso # (Auto) 0.1, Total Counted 100, Neutrophils % (Manual) 83 H, Lymphocytes % (Manual) 13, Monocytes % (Manual) 4, Platelet Estimate Slight decrease, Macrocytosis 1+, Sodium 142, Potassium 6.9 H*, Chloride 119 H, Carbon Dioxide 8 L* D, Anion Gap 21.9 H, BUN 59 H, Creatinine 4.30 H D, Estimated Creat Clear 14, Estimated GFR 10 L*, Est GFR ( Amer) 12 L* D, Glucose 244 H, Calcium 8.7, Phosphorus 6.9 H, Magnesium 2.1, Total Bilirubin 0.6, AST 137 H D, ALT 294 H, Alkaline Phosphatase 218 H, Total Protein 4.6 L, Albumin 2.1 L, Globulin 2.5, Albumin/Globulin Ratio 0.8 L, Acetone Level Moderate 12/22/22 06:00: Specimen Source r radial, O2 % 35, ABG pH 7.08 L*, ABG pCO2 28.4 L, ABG pO2 104.0 H, ABG HCO3 8.3 L, ABG Total CO2 9.2 L, ABG O2 Saturation 97, ABG Base Excess -21.6 L, Khurram Test acceptable, Vent Rate 16, Tidal Volume 420, PEEP 5 12/22/22 07:42: POC Glucose 315 H* Medical History: Medical History (Updated 12/20/22 @ 10:48 by Elvira Cárdenas MD) Acute respiratory failure with hypoxia COPD (chronic obstructive pulmonary disease) Coronary artery disease Degenerative disc disease, cervical Disorder of neck Hypertension Hypothyroid On mechanically assisted ventilation Type 1 diabetes Umbilical hernia Assessment and Plan Assessment and plan all Dx Assessment and Plan for all problems:: PATIENT SRCR WAS 4.30 MG/DL, UP FROM 3.30 YESTERD
--- NOTE | 2022-12-22 08:22 | PC.NURSE ---
New orders received to start pt on Bicarb gtt.
--- NOTE | 2022-12-22 08:28 | EXP.ACUTE.PN ---
Subjective *Date: 12/22/22 *Time: 08:56 Interval history: Patient has not done well this am. Nursing states she has become tachycardic with rates in the upper 130's. She is not tolerating tube feeds. Her ABG this am showed a pH of 7.08, PCO2 28.4, PO2 of 104, and an HCO3 of 8.3. Her white blood cell count is elevated at 18.4. Renal function has worsened. Her creatinine is 4.3 and GFR is 10. Potassium is up to 6.9 Medical Exam Vital signs and Labs for Last 24 Hours: Vital Signs Temp Pulse Pulse Pulse Resp BP Pulse Ox 12/22/22 08:00 99.5 F 12/22/22 07:00 12/22/22 07:00 99.1 F 126 H 134/47 L 97 12/22/22 04:00 110 H 12/22/22 05:33 113 H 12/22/22 05:33 113 H 12/22/22 05:00 98.6 F 112 H 124/49 L 98 12/22/22 05:00 12/22/22 04:00 12/22/22 04:00 12/22/22 04:00 98.6 F 106 H 110/37 L 98 12/22/22 03:00 98.4 F 104 H 113/39 L 98 12/22/22 03:00 12/22/22 02:07 16 99 12/21/22 19:00 99.7 F H 105 H 138/51 L 100 12/22/22 02:00 98.4 F 103 H 127/49 L 99 12/22/22 01:00 98.2 F 102 H 120/50 L 100 12/22/22 00:00 98.2 F 106 H 142/61 H 98 12/21/22 23:00 98.6 F 105 H 145/51 H 100 12/21/22 22:00 99.1 F 101 H 137/49 L 100 12/21/22 21:00 99.5 F 101 H 130/45 L 100 12/21/22 20:00 99.5 F 110 H 155/53 H 100 12/22/22 00:00 12/22/22 00:00 12/22/22 00:00 12/22/22 01:00 12/21/22 23:00 12/21/22 21:00 12/21/22 20:00 100 H 12/22/22 06:00 98.8 F 115 H 131/44 L 98 12/21/22 20:00 12/21/22 23:06 101 H 12/21/22 23:06 101 H 12/21/22 23:06 16 100 12/21/22 20:00 16 100 12/21/22 20:00 110 H 12/21/22 18:27 102 H 12/21/22 18:27 102 H 12/21/22 18:27 100 12/21/22 18:27 19 100 12/21/22 18:49 104 H 16 145/51 H 100 12/21/22 18:08 12/21/22 18:00 99.7 F H 101 H 16 135/49 L 100 12/21/22 16:00 100 H 12/21/22 16:00 100 12/21/22 17:00 12/21/22 17:00 99 H 16 121/39 L 100 12/21/22 16:00 99.5 F 100 H 16 134/43 L 100 12/21/22 15:00 102 H 16 136/56 L 100 12/21/22 14:10 16 100 12/21/22 12:00 100 H 12/21/22 12:00 100 12/21/22 14:00 99.3 F 98 H 16 134/51 L 100 12/21/22 13:00 97 H 16 135/52 L 100 12/21/22 14:24 12/21/22 13:00 12/21/22 12:00 99.0 F 95 H 16 118/46 L 100 12/21/22 11:00 12/21/22 11:00 94 H 16 119/46 L 100 12/21/22 10:00 92 H 16 122/50 L 98 12/21/22 10:07 98 12/21/22 09:00 12/21/22 09:00 98.8 F 91 H 16 128/55 L 98 O2 Del Method FiO2 12/22/22 08:00 12/22/22 07:00 Mechanical Ventilation 12/22/22 07:00 Mechanical Ventilation 12/22/22 04:00 12/22/22 05:33 12/22/22 05:33 12/22/22 05:00 Mechanical Ventilation 35 12/22/22 05:00 Mechanical Ventilation 12/22/22 04:00 Mechanical Ventilation 35 12/22/22 04:00 35 12/22/22 04:00 Mechanical Ventilation 35 12/22/22 03:00 Mechanical Ventilation 35 12/22/22 03:00 Mechanical Ventilation 12/22/22 02:07 35 12/21/22 19:00 Mechanical Ventilation 35 12/22/22 02:00 Mechanical Ventilation 35 12/22/22 01:00 Mechanical Ventilation 35 12/22/22 00:00 Mechanical Ventilation 35 12/21/22 23:00 Mechanical Ventilation 35 12/21/22 22:00 Mechanical Ventilation 35 12/21/22 21:00 Mechanical Ventilation 35 12/21/22 20:00 Mechanical Ventilation 35 12/22/22 00:00 Mechanical Ventilation 35 12/22/22 00:00 35 12/22/22 00:00 Mechanical Ventilation 35 12/22/22 01:00 Mechanical Ventilation 12/21/22 23:00 Mechanical Ventilation 12/21/22 21:00 Mechanical Ventilation 12/21/22 20:00 12/22/22 06:00 Mechanical Ventilation 35 12/21/22 20:00 Mechanical Ventilation 35 12/21/22 23:06 12/21/22 23:06
[2022-12-22 09:47] LABS: POC Glucose,Bedside 269 (70-110)
--- NOTE | 2022-12-22 09:49 | EXP.PULM.PN ---
Subjective *Date: 12/22/22 *Time: 11:41 Interval history: No acute respiratory vents overnight. Worsening metabolic acidosis. Pulmonology Exam Inpatient Vital signs and Labs for Last 24 Hours: Temp Pulse Resp BP Pulse Ox O2 Del Method O2 Flow Rate 99.7 F H 118 H 20 133/45 L 96 Mechanical Ventilation 100 12/22/22 09:00 12/22/22 09:00 12/22/22 09:00 12/22/22 09:00 12/22/22 09:00 12/22/22 09:00 12/18/22 04:00 FiO2 35 12/22/22 09:00 Laboratory Results - last 24 hr 12/21/22 07:55: POC Glucose 170 H 12/21/22 08:53: POC Glucose 215 H 12/21/22 09:51: POC Glucose 206 H 12/21/22 10:51: POC Glucose 204 H 12/21/22 11:59: POC Glucose 183 H 12/21/22 12:59: POC Glucose 160 H 12/21/22 13:50: POC Glucose 130 H 12/21/22 14:58: POC Glucose 120 H 12/21/22 15:52: POC Glucose 101 12/21/22 16:40: Random Vancomycin 23.6 12/21/22 16:41: POC Glucose 83 12/21/22 17:35: POC Glucose 128 H 12/21/22 18:41: POC Glucose 154 H 12/21/22 19:37: POC Glucose 177 H 12/21/22 21:10: POC Glucose 190 H 12/22/22 02:19: POC Glucose 238 H 12/22/22 04:15: WBC 18.4 H, RBC 3.45 L, Hgb 10.9 L, Hct 35.5 L, MCV 102.8 H, MCH 31.6 H, MCHC 30.7 L, RDW 15.2, Plt Count 124 L, MPV 12.7 H, Neut % (Auto) 84.7 H, Lymph % (Auto) 8.1 L, [place] % (Auto) 5.8, Eos % (Auto) 1.0, Baso % (Auto) 0.4, Neut # (Auto) 15.6 H, Lymph # (Auto) 1.5, [place] # (Auto) 1.1 H, Eos # (Auto) 0.2, Baso # (Auto) 0.1, Total Counted 100, Neutrophils % (Manual) 83 H, Lymphocytes % (Manual) 13, Monocytes % (Manual) 4, Platelet Estimate Slight decrease, Macrocytosis 1+, Sodium 142, Potassium 6.9 H*, Chloride 119 H, Carbon Dioxide 8 L* D, Anion Gap 21.9 H, BUN 59 H, Creatinine 4.30 H D, Estimated Creat Clear 14, Estimated GFR 10 L*, Est GFR ( Amer) 12 L* D, Glucose 244 H, Calcium 8.7, Phosphorus 6.9 H, Magnesium 2.1, Total Bilirubin 0.6, AST 137 H D, ALT 294 H, Alkaline Phosphatase 218 H, Total Protein 4.6 L, Albumin 2.1 L, Globulin 2.5, Albumin/Globulin Ratio 0.8 L, Acetone Level Moderate 12/22/22 06:00: Specimen Source r radial, O2 % 35, ABG pH 7.08 L*, ABG pCO2 28.4 L, ABG pO2 104.0 H, ABG HCO3 8.3 L, ABG Total CO2 9.2 L, ABG O2 Saturation 97, ABG Base Excess -21.6 L, Khurram Test acceptable, Vent Rate 16, Tidal Volume 420, PEEP 5 12/22/22 07:42: POC Glucose 315 H* 12/22/22 09:17: POC Glucose 269 H I & O for Labs for Last 24 Hours: Intake & Output 12/19/22 12/20/22 12/21/22 12/22/22 23:59 23:59 23:59 23:59 Intake Total 7081 / 7794 3630.917 / 4027.917 1783.875 / 1783.875 485 / 485 Output Total 460 / 470 315 / 330 249 / 259 83 / 83 Balance 6621 / 7324 3315.917 / 3697.917 1534.875 / 1524.875 402 / 402 Weight 145 lb 8.081 oz 161 lb 162 lb 9.6 oz 162 lb 3.2 oz Microbiology Reports for the Last 24 Hours: Microbiology 12/20/22 14:25 Sputum - Endotracheal Tube Aspirate Gram Stain - Final 12/17/22 19:22 Urine,Catheterized Urine Culture - Final NO GROWTH AFTER 48 HOURS 12/18/22 06:20 Sputum - Endotracheal Tube Aspirate Gram Stain - Final 12/18/22 06:20 Sputum - Endotracheal Tube Aspirate Sputum Culture - Final Normal Respiratory Harleen Constitutional: Present severe distress Comment:: Intubated and Sedated Head: Present normocephalic and atraumatic Neck: Present normal inspection and trachea midline Respiratory: Present patient mechanically ventilated, prolonged expiratory phase, respiratory distress and rhonchi Cardiac: Present S1/S2 and Tachycardia GI: Present soft and distention Comments:: Intubated and sedated Skin: Present intact; Absent cyanosis Neuro: Absent alert, awake or oriented x 3 Comment:: Intubated and sedated Extremities: Present normal inspection and edema; Absent clubbing or cyanosis Psychiatric: Present unable to assess Assessment and Plan *Assessment and plan (1) On mechanically assisted ventilation: Status: Acute Category: Medical Code(s): Z99.11 - Dependence on respirator [venti
--- NOTE | 2022-12-22 10:13 | PC.NURSE ---
Report called to Rosaline John [facility]
[2022-12-22 10:33] LABS: POC Glucose,Bedside 254 (70-110)
[2022-12-22 11:06] LABS: POC Glucose,Bedside 254 (70-110)
--- NOTE | 2022-12-22 12:08 | PC.NURSE ---
Pt left with [employer] @ 1155.
--- NOTE | 2022-12-27 08:32 | P.DS_ITS ---
General Admission date:: 12/18/22 Discharge date: 12/22/22 HPI HPI HPI: Medical Decision Narrative: In summary patient is a 72-year-old female past medical history described above who presents emergency department after being found down in the setting of insulin-dependent diabetes. Fingerstick blood glucose upon arrival was read as high. I have high suspicion for DKA. VBG shows severe metabolic acidosis wi thout significant hypercarbia however patient is not compensating from a respiratory status given that her respiratory rate is between 10 and 20. Patient will undergo aggressive fluid resuscitation as she is protecting her airway. She has soft blood pressures and intubation will likely be deleterious to the situation at hand. EKG shows hyperacute T waves, widened QRS consistent with severe acidosis and hyperkalemia. Patient will be given 2 g of calcium gluconate and an amp of bicarb. Bicarb drip will be hung. I was at bedside for aggressive fluid resuscitation total 5 L crystalloid. Blood cultures were drawn, broad hematologic labs obtained, broad-spectrum antibiotics started. Awaiting potassium to initiate insulin. Unfortunately patient blood pressure continued to be unacceptable so patient was started on norepinephrine drip. Initial hematologic labs remarkable for marked acidosis, hyperkalemia, sugar is 979, ETHAN. Insulin bolus as well as insulin drip was ordered. Patient underwent rapid sequence intubation with push dose Malcolm-Synephrine administered prior to intubation with success. Respiratory rate set to 30. Mean arterial pressures acceptable on vasopressors patient will now undergo CT imaging to rule out CVA, cerebral edema. There was a remote history of leg swelling which I do not appreciate currently however patient undergo CT pulmonary embolism protocol gi evelina that she is in shock. CT imaging by radiology with no acute findings, contrast dosing was not diagnosed for pulmonary embolism. Upon repeat evaluation patient had subsequent CMP which shows improvement of hyperglycemia, acidosis. Current interventions are working. Pulmonary consult placed. The case was subsequently discussed with Dr. Gee who agrees with current interventions and will admit the patient to the ICU for continued evaluation at this time. Bicarb drip was discontinued prior to admission and patient was placed on DKA protocol. The above as per ER documentation. Ms. Armenta is a patient of Dr. Gee's with a history of type 1 diabetes, hypertension, hyperlipidemia, hypothyroidism, COPD, viral meningitis in 2016, coronary artery disease, who presented to [facility] emergency room per EMS with description as above. She was unresponsive. After treatment as above she was admitted. She was then seen by Dr. Gee. He noted profound acidosis and septic shock. At this point she was on the ventilator. Vent settings were changed due to results of ABG with a pH of 7.36 PCO2 of 30 PO2 of 496. FiO2 was decreased to 50% at this time with the decrease in the respiratory rate to 20. She was placed on DKA protocol. At this point she was on Vanco and Zosyn. Zosyn was changed to cefepime due to renal function per pharmacy. This a.m. labs show a BUN of 41 and creatinine of 2.1. Potassium has normalized at 4.1. Blood sugar is 411 with calcium at 8.3. Troponin I has increased from 0.16-0.71. Liver function studies are also noted to be elevated. Urinalysis showed positive nitrites. ABGs with pH of 7.36 PCO2 normal at 38.7 with a PO2 of 70.8 and a bicarb of 21.1 Vent settings reveal tidal volume of 420 FiO2 30%, 5 cm of PEEP, with respiratory rate of 16. Patient remains on insulin drip, Malcolm- Synephrine drip, propofol and fentanyl drips. She is receiving IV flui
== END 2022-12-22 11:55 | disposition short-term general hospital (02) | DRG 870 ==
LOC: ER 18:50 → 2ND 22:53
PROVIDERS: Nurse Practitioner; Admitting Provider Family Medicine; Emergency Provider Emergency Medicine; PCP Family Medicine; Visit Provider Family Medicine
DX: A41.9 Sepsis, unspecified organism (principal); E10.10 Type 1 diabetes mellitus with ketoacidosis without coma; R65.21 Severe sepsis with septic shock; R57.1 Hypovolemic shock; G93.40 Encephalopathy, unspecified; N39.0 Urinary tract infection, site not specified; N17.9 Acute kidney failure, unspecified; I5A Non-ischemic myocardial injury (non-traumatic); J44.9 Chronic obstructive pulmonary disease, unspecified; E78.5 Hyperlipidemia, unspecified; Z79.4 Long term (current) use of insulin; E03.9 Hypothyroidism, unspecified; Z87.891 Personal history of nicotine dependence; I10 Essential (primary) hypertension; I25.10 Atherosclerotic heart disease of native coronary artery without angina pectoris
CPT/HCPCS: 31500; 94002; 36620; 36569; 36410; 36415; 70450; 70496; 70498; 71045; 71275; 74018; 76705; 80048; 80053; 80202; 81001; 82009; 82803; 82947; 82962; 83605; 83690; 83735; 84100; 84132; 84484; 85007; 85025; 87040; 87070; 87081; 87086; 87205; 93005; 93306; 94003; 94640; 94761; 99291; C1751; J2185; J2543; J2704; J3370; Q9967